=== PATIENT | male | born 1935 | race Caucasian/White ===

== ENCOUNTER 2023-03-29 16:50 | Inpatient (IN) ==
--- NOTE | 2023-03-29 17:10 | Emergency Department Note ---
Impression & Plan Fall, Memory deficit, Elevated CK, Weakness ED Provider Note Provider: Blayne Levin MD DATE OF SERVICE: 03/29/2023 CHIEF COMPLAINT: Found down HISTORY OF PRESENT ILLNESS: Patient is a 87-year-old gentleman presented the ambulance from his home today. Per EMS report the patient had not heard from him in 2 days and thus called out from checked. Was evidently found laying in garbage on the floor. Patient still states he is unsure how he ended up there. States he been on the ground for 2 to 3 days. Reports to me he does not have any pain. States he could not get up. Did have some things around he is able to eat or drink. EMS reports that it was very poorly kept and appeared to have some order components to the home that they were in. Patient's son did call and talk with nursing staff and reported that the patient does have a little bit of memory issues but they question of this seems to be worsening and they are planning to fly here from [place] tomorrow morning. Patient self again denies fever, cough or cold, chest pain, shortness of breath, abdominal pain, nausea or vomiting, headache, pain in the extremities. Patient again cannot tell me if he had LOC or what prompted the fall. Does state he is a bit thirsty. PAST MEDICAL HISTORY: As noted above MEDICATIONS: Supplements but no prescription medications reported. States has been at least half years since he seen [facility] PCP. SOCIAL HISTORY: Lives at home by himself PHYSICAL EXAM: GENERAL: alert and oriented in no acute distress on stretcher but does not remember all the events of how he ended up on the floor. Head: normocephalic and atraumatic EYES: No injection, discharge or icterus. PERRL, EOMI. NECK: Trachea midline. Supple without midline cervical tenderness ENT: Mucous membranes pink but somewhat tacky. LUNGS: Airway patent. No retractions. Breath sounds clear with good air entry bilaterally. HEART: Regular rate and rhythm. No chest wall tenderness ABDOMEN: Soft and non-tender, without guarding or rebound. No bilateral flank tenderness. SKIN: Acyanotic, warm, dry, without rashes EXTREMITIES: Without swelling, tenderness or deformity with good range of motion of the lower legs and hips. NEUROLOGICAL: No focal deficits. No aphasia. No facial droop or slurred speech. Normal strength and tone in the extremities. Sensation to gross touch normal. EK bpm what appears to be sinus tachycardia possibly with a bit of TN prolongation/first-degree heart block without PVC or acute ST segment elevation or depression with a QTc of 649 by the computer but I think it is less than this with some urging of the T wave in the TN. CONTINUOUS CARDIAC MONITORING: was ordered and showed a heart rate of 100s bpm in tachycardia GCS 15. Patient's laboratory studies and imaging reviewed. Differential includes Fracture, dislocation, contusion, intra-abdominal, pneumothorax, intrathoracic, intracranial, neurologic, compartment syndrome, rhabdomyolysis, cardiac etiology/AZ as well as other pathologies. IMPRESSION/MEDICAL DECISION MAKING: Patient evidently down on the ground for several days. Will check a CT exclude rhabdomyolysis but no clinical evidence of significant wounds or compartment syndrome. Denies any significant pain. Will complete a CT of the head with and cervical spine given the fall and question of possibly some memory issues. Patient is keenly alert however. Moving all extremities command. Nuys chest pain or shortness of breath. Denies illness symptoms. Again unclear if he had a syncopal episode or tripped or fell as he does not remember this. With reportedly questions regarding possible hoarding and issues at his home do question how long he may have had some memory decline. CK is only minimally elevated 574. Given some IV fluid hydration 1 L normal saline. Troponin mildly elevated 44 but not having active chest pain. EKG without acute ischemic changes. No other severe electrolyte abnormalities noted. Negative COVID testing. CT reports from radiology of the head and cervical spine without evidence of acute fracture or intracranial bleed/stroke findings. Chest x-ray per radiology without evidence of significant pneumonia pneumothorax or fluid overload. Generalized but nonfocal weakness. Does not seem infected and question of the mild leukocytosis of 12 is more reactive to to the stress of him being on the floor. Discussed with him well with the reassuring findings given his weakness I do feel he safe to go home at this time. Again family have discussed with nursing that they feel he may need additional resources and/or placement. Will discuss with hospitalist team and patient is in agreement to stay. DIAGNOSIS: Fall, memory deficit, weakness DISPOSITION: Hospitalist will evaluate Patient was agreeable with this plan. Past Med/Surg History Social History Smoking Status: Never smoker Preferred Language: Spanish Feels Safe at Home: Yes Allergies Allergies Allergy/AdvReac Type Severity Reaction Status Date / Time No Known Allergies Allergy Unverified 03/29/23 20:25 Home Meds Home Medications Medication Instructions Recorded Confirmed aspirin 81 mg tablet,delayed 81 mg PO DAILY 03/29/23 03/29/23 release cholecalciferol (vitamin D3) 25 25 mcg PO DAILY 03/29/23 03/29/23 mcg (1,000 unit) capsule multivitamin with minerals 1 tab PO DAILY 03/29/23 03/29/23 (Multiple Vitamin-Minerals tablet) Results & Data (ED) Vital Signs Vital Signs - 24 hr 03/29/23 16:55 03/29/23 17:15 03/29/23 17:18 Temperature 37.0 C Temperature Source Oral Pulse Rate 105 H 109 H Pulse Rhythm Regular Pulse Strength Normal Respiratory Rate 18 Respiratory Effort / Characteristics Non-Labored Respiratory Depth Normal Respiratory Pattern Regular Blood Pressure 157/124 H Blood Pressure Mean 135 Pulse Oximetry 98 97 Oxygen Delivery Method Room Air Room Air Sepsis Recent Fever Within 48 Hours No Sepsis New/Unexplained Change in Mental Status No Sepsis Action Taken by Nursing No Action Required 03/29/23 19:00 03/29/23 19:30 03/29/23 20:00 Temperature Temperature Source Pulse Rate 96 H 95 H 100 H Pulse Rhythm Pulse Strength Respiratory Rate 22 15 19 Respiratory Effort / Characteristics Respiratory Depth Respiratory Pattern Blood Pressure 173/109 H 148/109 H 150/103 H Blood Pressure Mean 130 122 118 Pulse Oximetry 97 98 97 Oxygen Delivery Method Room Air Room Air Room Air Sepsis Recent Fever Within 48 Hours Sepsis New/Unexplained Change in Mental Status Sepsis Action Taken by Nursing 03/29/23 20:30 03/29/23 20:54 Temperature Temperature Source Pulse Rate 110 H 96 H Pulse Rhythm Pulse Strength Respiratory Rate 19 Respiratory Effort / Characteristics Respiratory Depth Respiratory Pattern Blood Pressure Blood Pressure Mean Pulse Oximetry 94 Oxygen Delivery Method Room Air Sepsis Recent Fever Within 48 Hours Sepsis New/Unexplained Change in Mental Status Sepsis Action Taken by Nursing Laboratory Data 03/29/23 23:04 03/29/23 18:45 Lab Results 03/29/23 03/29/23 03/29/23 Range/Units 17:10 17:25 18:45 WBC Cancelled 12.89 H RBC Cancelled 5.07 Hgb Cancelled 15.4 Hct Cancelled 43.2 MCV Cancelled 85.2 MCH Cancelled 30.4 MCHC Cancelled 35.6 RDW Std Deviation Cancelled 41.7 RDW Coeff of Dorothy Cancelled 13.7 Plt Count Cancelled 220 MPV Cancelled 8.4 L Immature Gran % (Auto) Cancelled 0.5 Neut % (Auto) Cancelled 81.2 Lymph % (Auto) Cancelled 9.2 [place] % (Auto) Cancelled 8.5 Eos % (Auto) Cancelled 0.2 Baso % (Auto) Cancelled 0.4 Neut # (Auto) Cancelled 10.47 H Lymph # (Auto) Cancelled 1.18 L [place] # (Auto) Cancelled 1.10 H Eos # (Auto) Cancelled 0.02 Baso # (Auto) Cancelled 0.05 Immature Gran # (Auto) Cancelled 0.07 Absolute Nucleated RBC Cancelled Nucleated RBC % (auto) Cancelled Neutrophils % (Manual) Cancelled Band Neutrophils % Cancelled Lymphocytes % (Manual) Cancelled Prolymphocyte % Cancelled Reactive Lymphs % (Man) Cancelled Monocytes % (Manual) Cancelled Eosinophils % (Manual) Cancelled Basophils % (Manual) Cancelled Metamyelocytes % (Man) Cancelled Myelocytes % (Man) Cancelled Promyelocytes % (Man) Cancelled Blast Cells % (Manual) Cancelled Plasma Cell % (Manual) Cancelled Other Cells % Cancelled Nucleated RBC % Cancelled Neutrophils # (Manual) Cancelled Band Neutrophils # Cancelled Total Absolute Neuts Cancelled Lymphocytes # (Manual) Cancelled Prolymphocyte # Cancelled Reactive Lymphs # Cancelled Total Abs Lymphocytes Cancelled Monocytes # (Manual) Cancelled Eosinophils # (Manual) Cancelled Basophils # (Manual) Cancelled Metamyelocytes # (Man) Cancelled Myelocytes # (Manual) Cancelled Promyelocytes # (Man) Cancelled Blast Cells # (Man) Cancelled Plasma Cell # (Manual) Cancelled Other Cells # Cancelled Nucleated RBCs # (Man) Cancelled Hypersegmented Neuts Cancelled Hyposegmented Neuts Cancelled Hypogranular Neuts Cancelled Large Granular Lymphs Cancelled # Lrg Granular Lymphs Cancelled Hairy Cells Cancelled Smudge Cells Cancelled Toxic Granulation Cancelled Toxic Vacuolation Cancelled Dohle Bodies Cancelled Bakari Rods Cancelled Platelet Estimate Cancelled Hypogranular Platelets Cancelled Giant Platelets Cancelled Platelet Satelliting Cancelled RBC Morphology Cancelled Polychromasia Cancelled Hypochromasia Cancelled Poikilocytosis Cancelled Basophilic Stippling Cancelled Anisocytosis Cancelled Microcytosis Cancelled Macrocytosis Cancelled Spherocytes Cancelled Pappenheimer Bodies Cancelled Sickle Cells Cancelled Target Cells Cancelled Tear Drop Cells Cancelled Ovalocytes Cancelled Stomatocytes Cancelled Zamora-Dunnigan Bodies Cancelled Echinocytes Cancelled Acanthocytes (Spur) Cancelled Rouleaux Cancelled RBC Agglutinates Cancelled Schistocytes Cancelled Sezary Cell Cancelled PT 11.8 (9.0-12.0) Seconds INR 1.1 (0.9-1.1) Sodium 139 (136-145) mmol/L Potassium TNP 4.1 Chloride 105 (98-107) mmol/L Carbon Dioxide 23 (21-32) mmol/L Anion Gap 11 (3-11) BUN 19 (6-23) mg/dl Creatinine 1.09 (0.6-1.4) mg/dl Est Cr Clr Drug Dosing 46.4 ml/min Est GFR ( Amer) 70.9 ml/min Est GFR (Non-Af Amer) 61.1 ml/min BUN/Creatinine Ratio 17.4 (10-20) Glucose 95 (70-99(Fasting)) mg/dl Calcium 9.3 (8.6-10.3) mg/dl Magnesium 2.1 (1.7-2.4) mg/dl Total Bilirubin 2.2 H (0.2-1.0) mg/dl AST TNP 45 H ALT 22 (7-52) U/L Alkaline Phosphatase 86 (34-104) U/L Total Creatine Kinase 574 H (30-223) U/L Troponin I High Sens 44.3 H 47.6 H (0-20) pg/ml Total Protein 7.4 (6.0-8.3) gm/dl Albumin 4.1 (3.4-5.0) gm/dl Globulin 3.3 (2.5-4.0) gm/dl Albumin/Globulin Ratio 1.2 (0.9-2) TSH 2.507 (0.300-4.500) uIu/ml SARS-CoV-2, RNA, NAAT NEGATIVE (NEGATIVE) Blood Parasites ID Cancelled Administered Medications Heparin Sodium (Porcine) (Heparin Sod 5,000 Unit/0.5 Ml Vial) 5,000 units SQ Q12 STANLEY Stop: 04/28/23 22:41 Last Admin: 03/30/23 00:03 Dose: 5,000 units Documented By: TORRES Sodium Chloride (Nss) 1,000 mls @ 80 mls/hr IV .[id number] STANLEY Stop: 03/30/23 23:41 Last Admin: 03/30/23 00:03 Dose: 80 mls/hr Documented By: TORRES Discontinued Medications Sodium Chloride (Nss) 1,000 mls @ 999 mls/hr IV .[id number] STANLEY Stop: 03/29/23 18:15 Last Infusion: 03/29/23 19:11 Dose: Infused Documented By: Admin: 03/29/23 17:28 Dose: 999 mls/hr Documented By: PILY Imaging Data Radiologist's Impression: Cervical Spine CT 03/29/23 17:15 CT cervical spine wo con CT DOSE: 1130.02 mGy.cm CLINICAL HISTORY: 87 years-old Male with fall. Acute neck injury status post fall COMPARISON: Head CT obtained TECHNIQUE: Multiple axial CT images of the cervical spine were obtained without contrast. A dose lowering technique was utilized adhering to the principles of ALARA. FINDINGS: Multilevel changes. No acute fracture, subluxation or suspicious bone lesion. The cervical soft tissues appear unremarkable. The visualized lung apices appear clear. IMPRESSION: No acute fracture or subluxation. ACT 112: Negative or not required by law. The above report was generated using voice recognition software. It may contain grammatical, syntax or spelling errors. Electronically signed by: Miguel Mansfield M.D. 03/29/2023 6:12 PM Chest X-Ray 03/29/23 17:15 XR chest 1V portable HISTORY: 87 years-old Male weakness, fall acute weakness with chest trauma status post fall COMPARISON: None TECHNIQUE: AP view chest FINDINGS: Cardiac silhouette is enlarged. 9 mm nodular density projecting over the right lung base, possibly nipple shadow. No pneumothorax, pleural effusion or pulmonary edema. Mild subsegmental left basilar atelectasis. Bones appear grossly intact. IMPRESSION: Cardiomegaly without acute process. ACT 112: Negative or not required by law. The above report was generated using voice recognition software. It may contain grammatical, syntax or spelling errors. Electronically signed by: Miguel Mansfield M.D. 03/29/2023 5:[address] 03/29/23 17:15 CT head/brain wo con CLINICAL HISTORY: 87 years-old Male with fall. Acute head and neck injury status post trauma TECHNIQUE: Multiple axial CT images of the head were obtained without contrast. A dose lowering technique was utilized adhering to the principles of ALARA. COMPARISON: CT cervical spine of same day FINDINGS: No acute intracranial hemorrhage, midline shift, intracranial mass, hydrocephalus, territorial ischemia or abnormal extra-axial collection. Involutional changes with white matter hypodensities suggestive of chronic microvascular ischemic disease. The calvarium is intact. Mastoid air cells are clear. [id number] mucosal thickening of the paranasal sinuses appears chronic. IMPRESSION: No acute intracranial abnormality or calvarial fracture. ACT 112: Negative or not required by law. The above report was generated using voice recognition software. It may contain grammatical, syntax or spelling errors. Electronically signed by: Miguel Mansfield M.D. 03/29/2023 6:07 PM Discharge Plan Visit Data Chief Complaint: Fall ED Provider: Blayne Levin Discharge Problem: Fall, Memory deficit, Elevated CK, Weakness Patient Disposition: Being Evaluated by Hospitalist Condition: Fair Discharge Instructions Interventions: ED Discharge Assessment Last Done: 03/29/23 22:41
[2023-03-29] MEDS ORDERED: SODIUM CHLORIDE 0.9% 1,000 ML IV SCH (17:15)
[2023-03-29 17:40] LABS: Alanine Aminotransferase 22 U/L (7-52); Albumin Globulin Ratio 1.2 (0.9-2); Albumin Level 4.1 gm/dl (3.4-5.0); Alkaline Phosphatase 86 U/L (34-104); Anion Gap 11 (3-11); BUN Creatinine Ratio 17.4 (10-20); Bilirubin,Total 2.2 mg/dl (0.2-1.0); Blood Urea Nitrogen 19 mg/dl (6-23); Calcium 9.3 mg/dl (8.6-10.3); Carbon Dioxide 23 mmol/L (21-32); Chloride 105 mmol/L (98-107); Creatine Kinase 574 U/L (30-223); Creatinine Clr Calc Pharmacy 46.4 ml/min; Est GFR (African American) 70.9 ml/min; Est GFR (Non-African American) 61.1 ml/min; Globulin 3.3 gm/dl (2.5-4.0); Glucose 95 mg/dl (70-99(Fasting)); Magnesium 2.1 mg/dl (1.7-2.4); Sodium 139 mmol/L (136-145); Total Protein 7.4 gm/dl (6.0-8.3)
[2023-03-29 17:46] LABS: Troponin I High Sensitivity 44.3 pg/ml (0-20)
[2023-03-29 17:54] LABS: Thyroid Stimulating Hormone 2.507 uIu/ml (0.300-4.500)
--- NOTE | 2023-03-29 17:58 | XRay Report ---
XR chest 1V portable HISTORY: 87 years-old Male weakness, fall acute weakness with chest trauma status post fall COMPARISON: None TECHNIQUE: AP view chest FINDINGS: Cardiac silhouette is enlarged. 9 mm nodular density projecting over the right lung base, possibly ni pple shadow. No pneumothorax, pleural effusion or pulmonary edema. Mild subsegmental left basilar ate lectasis. Bones appear grossly intact. IMPRESSION: Cardiomegaly without acute process. ACT 112: Negative or not required by law. The above report was generated using voice recognition software. It may contain grammatical, syntax o r spelling errors. Electronically signed by: Miguel Mansfield M.D. 03/29/2023 5:55 PM
--- NOTE | 2023-03-29 18:09 | CT Scan Report ---
CT head/brain wo con CLINICAL HISTORY: 87 years-old Male with fall. Acute head and neck injury status post trauma TECHNIQUE: Multiple axial CT images of the head were obtained without contrast. A dose lowering tech nique was utilized adhering to the principles of ALARA. COMPARISON: CT cervical spine of same day FINDINGS: No acute intracranial hemorrhage, midline shift, intracranial mass, hydrocephalus, territorial ischem ia or abnormal extra-axial collection. Involutional changes with white matter hypodensities suggestiv e of chronic microvascular ischemic disease. The calvarium is intact. Mastoid air cells are clear. [id number] mucosal thickening of the par anasal sinuses appears chronic. IMPRESSION: No acute intracranial abnormality or calvarial fracture. ACT 112: Negative or not required by law. The above report was generated using voice recognition software. It may contain grammatical, syntax o r spelling errors. Electronically signed by: Miguel Mansfield M.D. 03/29/2023 6:07 PM
--- NOTE | 2023-03-29 18:15 | CT Scan Report ---
CT cervical spine wo con CT DOSE: 1130.02 mGy.cm CLINICAL HISTORY: 87 years-old Male with fall. Acute neck injury status post fall COMPARISON: Head CT obtained TECHNIQUE: Multiple axial CT images of the cervical spine were obtained without contrast. A dose low ering technique was utilized adhering to the principles of ALARA. FINDINGS: Multilevel changes. No acute fracture, subluxation or suspicious bone lesion. The cervical soft tissues appear unremarkable. The visualized lung apices appear clear. IMPRESSION: No acute fracture or subluxation. ACT 112: Negative or not required by law. The above report was generated using voice recognition software. It may contain grammatical, syntax o r spelling errors. Electronically signed by: Miguel Mansfield M.D. 03/29/2023 6:12 PM
[2023-03-29 19:05] LABS: Basophils # (auto) 0.05 K/uL (0.00-0.20); Basophils % (auto) 0.4 %; Eosinophils # (auto) 0.02 K/uL (0.00-0.50); Eosinophils % (auto) 0.2 %; Hematocrit (blood only) 43.2 % (42.0-52.0); Hemoglobin 15.4 g/dl (14.0-18.0); Immature Granulocytes # (auto) 0.07 K/uL (0.01-0.20); Immature Granulocytes % (auto) 0.5 %; Lymphocytes # (auto) 1.18 K/uL (1.20-3.40); Lymphocytes % (auto) 9.2 %; Mean Corpuscular Hemoglobin 30.4 pg (25.0-34.0); Mean Corpuscular Hgb Conc 35.6 g/dL (32.0-36.0); Mean Corpuscular Volume 85.2 fL (80.0-100.0); Mean Platelet Volume 8.4 fL (9.4-12.4); Monocytes % (auto) 8.5 %; Neutrophils # (auto) 10.47 K/uL (1.40-6.50); Neutrophils % (auto) 81.2 %; Platelet Count 220 K/uL (130-400); RDW Coefficient of Variation 13.7 % (11.5-14.5); RDW Standard Deviation 41.7 fL (36.4-46.3); Red Blood Count 5.07 M/uL (4.70-6.10); White Blood Count 12.89 K/ul (4.8-10.8)
[2023-03-29 19:21] LABS: Potassium 4.1 mmol/L (3.5-5.1)
[2023-03-29 19:32] LABS: INR 1.1 (0.9-1.1); Prothrombin Time 11.8 Seconds (9.0-12.0)
--- NOTE | 2023-03-29 21:05 | History & Physical Report ---
Date of Service March 29, 2023 Assessment & Plan (1) Fall: Plan: 87-year-old male with past med history significant for hyperlipidemia, chronic kidney stage III presents with fall. Patient apparently fell couple of days ago and laid on the floor for the last 2 days. Patient states he passed out did not know why. And after he woke up he found himself on the floor and could not get up. States that he fell up on his abdomen and he has some abdominal discomfort. Denies any head pain. No back pain. No chest pain. No cough. No fevers. No runny nose or sore throat. Vision is okay. Says normal bowel and bladder movements. Son lives in [place] and is coming tomorrow. Fall Possible syncope CT head and CT cervical spine are okay and chest x-ray okay Currently hemoglobin stable Will place him on gentle fluids Orthostatics Monitoring telemetry floor Echocardiogram Consult cardio in a.m. PT OT when stable Significantly Prolonged QTC will keep k>4 and mag>2 close monitor in tele cardio consulted avoid qt prolonging drugs. Mild elevation troponin denies chest pain or sob We will follow repeat EKG and serial enzymes and echo Elevated cpk getting fluids will follow repeat levels. CKD stage III presented with creatinine 1.09 We will follow labs DVT prophylaxis Heparin subcu Disposition Med/tele Full code History of Present Illness Chief Complaint: S/p fall Primary Care Provider: Michi Navarrete MD 87-year-old male with past med history significant for hyperlipidemia, chronic kidney stage III presents with fall. Patient apparently fell couple of days ago and laid on the floor for the last 2 days. Patient states he passed out did not know why. And after he woke up he found himself on the floor and could not get up. States that he fell up on his abdomen and he has some abdominal discomfort. Denies any head pain. No back pain. No chest pain. No cough. No fevers. No runny nose or sore throat. Vision is okay. Says normal bowel and bladder movements. Son lives in [place] and is coming tomorrow. Past medical history. As mentioned above Past surgical history. Removal of ruptured appendix. Inguinal hernia repair. Social history. Lives alone. No smoking. Alcohol 3 drinks per month. No drug use. Family history. No family history on file Allergies Allergy/AdvReac Type Severity Reaction Status Date / Time No Known Allergies Allergy Unverified 03/29/23 20:25 Home Medications Medication Instructions Recorded Confirmed Type aspirin 81 mg tablet,delayed 81 mg PO DAILY 03/29/23 03/29/23 History release cholecalciferol (vitamin D3) 25 25 mcg PO DAILY 03/29/23 03/29/23 History mcg (1,000 unit) capsule multivitamin with minerals 1 tab PO DAILY 03/29/23 03/29/23 History (Multiple Vitamin-Minerals tablet) Past Med/Surg History Social History Smoking Status: Never smoker Preferred Language: Botswanan Feels Safe at Home: Yes Review of Systems Review of Systems: All systems reviewed & are unremarkable except as noted in HPI & below Physical Exam Physical Exam: General- Not in distress Head- atraumatic Eyes- EOMI ENT- oropharynx clear Neck- supple, no JVD. Lungs- clear to auscultation no wheezing or crackles Heart- regular rhythm; no murmur, no gallop. Abdomen- normal bowel sounds, soft, nontender, no distension Extremities- no pretibial edema, no erythema seen Neuro- alert, oriented x 3; EOMI; no facial palsy; no dysarthria; Obeys simple commands moves extremities Skin- warm & dry Results & Data Results & Data Vital Signs (Past 12 Hours) Vital Signs Temp Pulse Resp BP Pulse Ox O2 Del Method 03/29/23 20:30 110 H 19 94 Room Air 03/29/23 20:00 100 H 19 150/103 H 97 Room Air 03/29/23 19:30 95 H 15 148/109 H 98 Room Air 03/29/23 19:00 96 H 22 173/109 H 97 Room Air 03/29/23 17:18 109 H 03/29/23 17:15 97 Room Air 03/29/23 16:55 37.0 C 105 H 18 157/124 H 98 Room Air Diagnostic Findings Laboratory Results WBC 12.89 K/ul (4.8-10.8) H 03/29/23 18:45 RBC 5.07 M/uL (4.70-6.10) 03/29/23 18:45 Hgb 15.4 g/dl (14.0-18.0) 03/29/23 18:45 Hct 43.2 % (42.0-52.0) 03/29/23 18:45 MCV 85.2 fL (80.0-100.0) 03/29/23 18:45 MCH 30.4 pg (25.0-34.0) 03/29/23 18:45 MCHC 35.6 g/dL (32.0-36.0) 03/29/23 18:45 RDW Std Deviation 41.7 fL (36.4-46.3) 03/29/23 18:45 RDW Coeff of Dorothy 13.7 % (11.5-14.5) 03/29/23 18:45 Plt Count 220 K/uL (130-400) 03/29/23 18:45 MPV 8.4 fL (9.4-12.4) L 03/29/23 18:45 Immature Gran % (Auto) 0.5 % 03/29/23 18:45 Neut % (Auto) 81.2 % 03/29/23 18:45 Lymph % (Auto) 9.2 % 03/29/23 18:45 [place] % (Auto) 8.5 % 03/29/23 18:45 Eos % (Auto) 0.2 % 03/29/23 18:45 Baso % (Auto) 0.4 % 03/29/23 18:45 Neut # (Auto) 10.47 K/uL (1.40-6.50) H 03/29/23 18:45 Lymph # (Auto) 1.18 K/uL (1.20-3.40) L 03/29/23 18:45 [place] # (Auto) 1.10 K/uL (0.11-0.59) H 03/29/23 18:45 Eos # (Auto) 0.02 K/uL (0.00-0.50) 03/29/23 18:45 Baso # (Auto) 0.05 K/uL (0.00-0.20) 03/29/23 18:45 Immature Gran # (Auto) 0.07 K/uL (0.01-0.20) 03/29/23 18:45 Absolute Nucleated RBC Cancelled 03/29/23 17:10 Nucleated RBC % (auto) Cancelled 03/29/23 17:10 Neutrophils % (Manual) Cancelled 03/29/23 17:10 Band Neutrophils % Cancelled 03/29/23 17:10 Lymphocytes % (Manual) Cancelled 03/29/23 17:10 Prolymphocyte % Cancelled 03/29/23 17:10 Reactive Lymphs % (Man) Cancelled 03/29/23 17:10 Monocytes % (Manual) Cancelled 03/29/23 17:10 Eosinophils % (Manual) Cancelled 03/29/23 17:10 Basophils % (Manual) Cancelled 03/29/23 17:10 Metamyelocytes % (Man) Cancelled 03/29/23 17:10 Myelocytes % (Man) Cancelled 03/29/23 17:10 Promyelocytes % (Man) Cancelled 03/29/23 17:10 Blast Cells % (Manual) Cancelled 03/29/23 17:10 Plasma Cell % (Manual) Cancelled 03/29/23 17:10 Other Cells % Cancelled 03/29/23 17:10 Nucleated RBC % Cancelled 03/29/23 17:10 Neutrophils # (Manual) Cancelled 03/29/23 17:10 Band Neutrophils # Cancelled 03/29/23 17:10 Total Absolute Neuts Cancelled 03/29/23 17:10 Lymphocytes # (Manual) Cancelled 03/29/23 17:10 Prolymphocyte # Cancelled 03/29/23 17:10 Reactive Lymphs # Cancelled 03/29/23 17:10 Total Abs Lymphocytes Cancelled 03/29/23 17:10 Monocytes # (Manual) Cancelled 03/29/23 17:10 Eosinophils # (Manual) Cancelled 03/29/23 17:10 Basophils # (Manual) Cancelled 03/29/23 17:10 Metamyelocytes # (Man) Cancelled 03/29/23 17:10 Myelocytes # (Manual) Cancelled 03/29/23 17:10 Promyelocytes # (Man) Cancelled 03/29/23 17:10 Blast Cells # (Man) Cancelled 03/29/23 17:10 Plasma Cell # (Manual) Cancelled 03/29/23 17:10 Other Cells # Cancelled 03/29/23 17:10 Nucleated RBCs # (Man) Cancelled 03/29/23 17:10 Hypersegmented Neuts Cancelled 03/29/23 17:10 Hyposegmented Neuts Cancelled 03/29/23 17:10 Hypogranular Neuts Cancelled 03/29/23 17:10 Large Granular Lymphs Cancelled 03/29/23 17:10 # Lrg Granular Lymphs Cancelled 03/29/23 17:10 Hairy Cells Cancelled 03/29/23 17:10 Smudge Cells Cancelled 03/29/23 17:10 Toxic Granulation Cancelled 03/29/23 17:10 Toxic Vacuolation Cancelled 03/29/23 17:10 Dohle Bodies Cancelled 03/29/23 17:10 Bakari Rods Cancelled 03/29/23 17:10 Platelet Estimate Cancelled 03/29/23 17:10 Hypogranular Platelets Cancelled 03/29/23 17:10 Giant Platelets Cancelled 03/29/23 17:10 Platelet Satelliting Cancelled 03/29/23 17:10 RBC Morphology Cancelled 03/29/23 17:10 Polychromasia Cancelled 03/29/23 17:10 Hypochromasia Cancelled 03/29/23 17:10 Poikilocytosis Cancelled 03/29/23 17:10 Basophilic Stippling Cancelled 03/29/23 17:10 Anisocytosis Cancelled 03/29/23 17:10 Microcytosis Cancelled 03/29/23 17:10 Macrocytosis Cancelled 03/29/23 17:10 Spherocytes Cancelled 03/29/23 17:10 Pappenheimer Bodies Cancelled 03/29/23 17:10 Sickle Cells Cancelled 03/29/23 17:10 Target Cells Cancelled 03/29/23 17:10 Tear Drop Cells Cancelled 03/29/23 17:10 Ovalocytes Cancelled 03/29/23 17:10 Stomatocytes Cancelled 03/29/23 17:10 Zamora-Concho Bodies Cancelled 03/29/23 17:10 Echinocytes Cancelled 03/29/23 17:10 Acanthocytes (Spur) Cancelled 03/29/23 17:10 Rouleaux Cancelled 03/29/23 17:10 RBC Agglutinates Cancelled 03/29/23 17:10 Schistocytes Cancelled 03/29/23 17:10 Sezary Cell Cancelled 03/29/23 17:10 PT 11.8 Seconds (9.0-12.0) 03/29/23 18:45 INR 1.1 (0.9-1.1) 03/29/23 18:45 Sodium 139 mmol/L (136-145) 03/29/23 17:10 Potassium 4.1 mmol/L (3.5-5.1) 03/29/23 18:45 Chloride 105 mmol/L (98-107) 03/29/23 17:10 Carbon Dioxide 23 mmol/L (21-32) 03/29/23 17:10 Anion Gap 11 (3-11) 03/29/23 17:10 BUN 19 mg/dl (6-23) 03/29/23 17:10 Creatinine 1.09 mg/dl (0.6-1.4) 03/29/23 17:10 Est Cr Clr Drug Dosing 46.4 ml/min 03/29/23 17:10 Est GFR ( Amer) 70.9 ml/min 03/29/23 17:10 Est GFR (Non-Af Amer) 61.1 ml/min 03/29/23 17:10 BUN/Creatinine Ratio 17.4 (10-20) 03/29/23 17:10 Glucose 95 mg/dl (70-99(Fasting)) 03/29/23 17:10 Calcium 9.3 mg/dl (8.6-10.3) 03/29/23 17:10 Magnesium 2.1 mg/dl (1.7-2.4) 03/29/23 17:10 Total Bilirubin 2.2 mg/dl (0.2-1.0) H 03/29/23 17:10 AST 45 U/L (13-39) H 03/29/23 18:45 ALT 22 U/L (7-52) 03/29/23 17:10 Alkaline Phosphatase 86 U/L (34-104) 03/29/23 17:10 Total Creatine Kinase 574 U/L (30-223) H 03/29/23 17:10 Troponin I High Sens 47.6 pg/ml (0-20) H 03/29/23 18:45 Total Protein 7.4 gm/dl (6.0-8.3) 03/29/23 17:10 Albumin 4.1 gm/dl (3.4-5.0) 03/29/23 17:10 Globulin 3.3 gm/dl (2.5-4.0) 03/29/23 17:10 Albumin/Globulin Ratio 1.2 (0.9-2) 03/29/23 17:10 TSH 2.507 uIu/ml (0.300-4.500) 03/29/23 17:10 SARS-CoV-2, RNA, NAAT NEGATIVE (NEGATIVE) 03/29/23 17:25 Blood Parasites ID Cancelled 03/29/23 17:[address] 03/29/23 17:15 CT cervical spine wo con CT DOSE: 1130.02 mGy.cm CLINICAL HISTORY: 87 years-old Male with fall. Acute neck injury status post fall COMPARISON: Head CT obtained TECHNIQUE: Multiple axial CT images of the cervical spine were obtained without contrast. A dose lowering technique was utilized adhering to the principles of ALARA. FINDINGS: Multilevel changes. No acute fracture, subluxation or suspicious bone lesion. The cervical soft tissues appear unremarkable. The visualized lung apices appear clear. IMPRESSION: No acute fracture or subluxation. ACT 112: Negative or not required by law. The above report was generated using voice recognition software. It may contain grammatical, syntax or spelling errors. Electronically signed by: Miguel Mansfield M.D. 03/29/2023 6:12 PM Chest X-Ray 03/29/23 17:15 XR chest 1V portable HISTORY: 87 years-old Male weakness, fall acute weakness with chest trauma status post fall COMPARISON: None TECHNIQUE: AP view chest FINDINGS: Cardiac silhouette is enlarged. 9 mm nodular density projecting over the right lung base, possibly nipple shadow. No pneumothorax, pleural effusion or pulmonary edema. Mild subsegmental left basilar atelectasis. Bones appear grossly intact. IMPRESSION: Cardiomegaly without acute process. ACT 112: Negative or not required by law. The above report was generated using voice recognition software. It may contain grammatical, syntax or spelling errors. Electronically signed by: Miguel Mansfield M.D. 03/29/2023 5:[address] 03/29/23 17:15 CT head/brain wo con CLINICAL HISTORY: 87 years-old Male with fall. Acute head and neck injury status post trauma TECHNIQUE: Multiple axial CT images of the head were obtained without contrast. A dose lowering technique was utilized adhering to the principles of ALARA. COMPARISON: CT cervical spine of same day FINDINGS: No acute intracranial hemorrhage, midline shift, intracranial mass, hydrocephalus, territorial ischemia or abnormal extra-axial collection. Involutional changes with white matter hypodensities suggestive of chronic microvascular ischemic disease. The calvarium is intact. Mastoid air cells are clear. [id number] mucosal thickening of the paranasal sinuses appears chronic. IMPRESSION: No acute intracranial abnormality or calvarial fracture. ACT 112: Negative or not required by law. The above report was generated using voice recognition software. It may contain grammatical, syntax or spelling errors. Electronically signed by: Miguel Mansfield M.D. 03/29/2023 6:07 PM ECG Additional Comments: ECG. Accelerated junctional rhythm with occasional PVCs at a rate of 102. Code Status & VTE Plan VTE Prophylaxis Plan VTE Prophylaxis will be ordered: Yes
--- OUTSIDE RECORDS SUMMARY | 2023-03-29 22:37 | External Medical Summary | Summary of Care ---
Author Name Unknown Organization [facility] Address [address] [place] [address] Phone [phone] Care Team Providers Care Technical Mgr Name Role Phone Michi Navarrete MD Primary Care Provider Encounter Details Date Type Department Care Team (Late st Contact Info) Description 02/18/2023 Population Health External Data Unspecified Department Allergies No known active allergiesdocumented as of this encounter (statuses as of 02/18/2023) Medications Medication Sig Dispensed Refills Start Date End Date Status Multiple Vitamins-Minerals (MULTIVITAL) Tablet Take 1 Tab by mouth daily. 30 Tab 11 08/30/2014 Active Cholecalciferol (VITAMIN D) 1000 UNIT CapsuleIndications:My algia and myositis Take 1 Cap by mouth daily. 30 Cap 11 08/30/2014 Active aspirin 81 MG chewable tablet Take 1 Tab by mouth daily. with food. 100 Tab 5 04/10/2015 Active Diclofenac Sodium (VOLTAREN) 1 % gelIndications:Flank pain Place 2 g topically on the skin 4 times a day. To affected area as directed. 100 g 5 07/27/2015 Active documented as of this encounter (statuses as of 02/18/2023) Active Problems Problem Noted Date Diagnosed Date Kidney disease, chronic, stage III (GFR 30-59 ml /min) 12/14/2015 Hyperlipidemia with target LDL less than 100 Need for prophylactic measure 04/10/2015 documented as of this encounter (statuses as of 02/18/2023) Immunizations Name Administration Dates Next Due COVID-19 mRNA, LNP-s, No Pre serve, 2-Dose Series (I Do Now I Don't) 12/05/2020,11/14/2020 Pneumococcal Conjugate Vacc, 13 Valent (Prevnar) 12/14/2015 Pneumococcal Polysaccharide PPV23 (Pneumovax) SEASONAL INFLUENZA, PF, 6 M & Above, IM , (FLULAVAL or FLUZONE) 03/04/2017 Seasonal Influenza, Split, IIV3, With Preserve, Inj 01/01/2016 Seasonal Influenza, Trivalen t, High Dose, No Preserve, IM 03/28/2015 TDAP (age 11 and older)(Adacel) 11/03/2011 documented as of this encounter Social History Tobacco Use Types Packs/Day Years Used Date Smoking Tobacco: Never Smokeless Tobacco: Never Alcohol Use Standard Drinks/Week Comments Yes 0 (1 standard drink = 0.6 oz pur e alcohol) rare 3 drinks per month PHQ-2 Answer Date Recorded PHQ-2 Score -1 02/03/2018 Sex and Gender Information Value Date Recorded Sex Assigned at Not on file Gender Identity Not on file Sexual Orientation Not on file documented as of this encounter Plan of Treatment Health Maintenance Due Date Last Done Comments Albumin/Creatinine Ratio 1953 CKD HGB USE SMARTSET 79569 1953 CKD PHOS USE SMARTSET 46787 1953 Zoster Vaccines (1 of 2) 1986 Depression Screening 06/13/2018 06/13/2017 DTaP,Tdap,and Td Vaccines (2 - Td or Tdap) 11/02/2021 11/03/2011 COVID-19 Vaccine (3 - 2022-2 4 season) 2022 12/05/2020, 11/14/2020 Influenza Vaccine (FLU shot) (#1) 2022 03/04/2017, 01/01/2016, 03/28/2015 Pneumococcal Vaccine: 65+ Years Completed 12/14/2015, 08/30/2014 GARDASIL-HPV IMMUNIZATION SERIES Aged Out No longer eligible b ased on patient's age to complete this topic Hepatitis B Aged Out No longer eligi ble based on patient's age to complete this topic MENINGOCOCCAL (MENACTRA/MENVEO) Aged Out No longer eligible b ased on patient's age to complete this topic documented as of this encounter Medical Devices Not on filedocumented as of this encounter Care Teams Technical Mgr Relationship Specialty Start Date End Date Michi Navarrete MD PCP - General Family Medicine 08/17/14 documented as of this encounter
[2023-03-29] MEDS ORDERED: NITROGLYCERIN SL 0.4 MG/TAB TAB SL PRN (22:42)
[2023-03-29] MEDS ORDERED: ACETAMINOPHEN 325 MG TAB PO PRN (22:42)
[2023-03-29] MEDS ORDERED: POLYETHYLENE (MIRALAX) 17 GM PACK PO PRN (22:42)
[2023-03-29 23:28] LABS: Hematocrit (blood only) 42.9 % (42.0-52.0); Hemoglobin 15.1 g/dl (14.0-18.0); Mean Corpuscular Hemoglobin 29.9 pg (25.0-34.0); Mean Corpuscular Hgb Conc 35.2 g/dL (32.0-36.0); Mean Platelet Volume 8.4 fL (9.4-12.4); Platelet Count 217 K/uL (130-400); RDW Coefficient of Variation 13.7 % (11.5-14.5); RDW Standard Deviation 42.5 fL (36.4-46.3); Red Blood Count 5.05 M/uL (4.70-6.10); White Blood Count 11.49 K/ul (4.8-10.8)
[2023-03-30] MEDS: HEPARIN SOD 5,000 UNIT/0.5 ML VIAL SQ SCH ×3 (00:03→20:26)
[2023-03-30] MEDS: SODIUM CHLORIDE 0.9% 1,000 ML IV SCH ×2 (00:03→13:03)
[2023-03-30 04:55] LABS: Basophils # (auto) 0.05 K/uL (0.00-0.20); Basophils % (auto) 0.5 %; Eosinophils # (auto) 0.07 K/uL (0.00-0.50); Eosinophils % (auto) 0.7 %; Hematocrit (blood only) 41.8 % (42.0-52.0); Hemoglobin 14.8 g/dl (14.0-18.0); Immature Granulocytes # (auto) 0.05 K/uL (0.01-0.20); Immature Granulocytes % (auto) 0.5 %; Lymphocytes # (auto) 1.76 K/uL (1.20-3.40); Lymphocytes % (auto) 17.3 %; Mean Corpuscular Hemoglobin 30.6 pg (25.0-34.0); Mean Corpuscular Hgb Conc 35.4 g/dL (32.0-36.0); Mean Corpuscular Volume 86.4 fL (80.0-100.0); Mean Platelet Volume 8.5 fL (9.4-12.4); Monocytes # (auto) 0.96 K/uL (0.11-0.59); Monocytes % (auto) 9.4 %; Neutrophils # (auto) 7.27 K/uL (1.40-6.50); Neutrophils % (auto) 71.6 %; Platelet Count 217 K/uL (130-400); RDW Coefficient of Variation 13.7 % (11.5-14.5); RDW Standard Deviation 42.3 fL (36.4-46.3); Red Blood Count 4.84 M/uL (4.70-6.10); White Blood Count 10.16 K/ul (4.8-10.8)
[2023-03-30 05:09] LABS: BUN Creatinine Ratio 18.1 (10-20); Calcium 8.6 mg/dl (8.6-10.3); Creatinine Clr Calc Pharmacy 48.2 ml/min; Est GFR (African American) 74.1 ml/min; Magnesium 2.1 mg/dl (1.7-2.4); Potassium 3.7 mmol/L (3.5-5.1)
[2023-03-30 05:23] LABS: Troponin I High Sensitivity 38.3 pg/ml (0-20)
--- NOTE | 2023-03-30 07:34 | Hospitalist Progress Note ---
Date of Service March 30, 2023 Assessment & Plan (1) Syncope and collapse: Plan: Fall Possible syncope and generalized weakness Uncertain cause of syncope CT head and CT cervical spine are okay and chest x-ray okay Currently hemoglobin stable Orthostatics qshift Monitoring telemetry floor Echocardiogram pending Cardiology consulted PT OT when stable (2) Prolonged QT interval: Plan: Significant QTc around 700ms. Mg and K replaced to achieve 2 and 4, respectively. He is not on QT-prolonging medications. Echo and cardiac consult pending. Doubt ACS without any reports of chest pain and no ST changes consistent with acute ischemia. There is no alkalosis, TSH is WNL. Will await cardiology recommendations. (3) Weakness: Plan: Patient is elderly with chronic comorbidities. It is uncertain if there are otherAcute reasons for his weakness and fall which are being explored. Still awaiting urinalysis collection PT/OT ordered. (4) Elevated CK: Plan: 2/2 lying on the floor for a prolonged period of time. This is trending down. Continue gentle hydration. (5) Elevated troponin: Plan: No chest pain or EKG changes consistent with ischemia, doubt ACS. Likely related to the stress of being on the floor with elevated CK. Echo and cards consult pending. (6) CKD (chronic kidney disease), stage III: Plan: chronic, at baseline. (7) Memory deficit: Plan: Per initial admission records. Patient lives alone. He appears to be rather functional and is answering questions appropriately. He is oriented. Continue supportive care. DVT prophylaxis- Heparin subcu Disposition--Med/tele Full code I spent a total [id number] coordinating, documenting, and providing care for this patient excluding time spent in the performance of separately billed services Debi Orozco DO [facility] Hospitalist Admission and Anticipated Discharge Date Admission Date: March 29, 2023 Subjective 87-year-old man who lives alone and ambulates independently reports walking in his room 2 days ago with a sudden loss of consciousness and remained weak and unable to get up for approximately 48 hours. He reports no presyncopal symptoms of lightheadedness, no tongue biting, no loss of control of bladder or bowel, and when he woke up on the floor he was clear. He has never passed out before per his report. CT head and C-spine CT are unremarkable. Echocardiogram was performed this morning. He denies any pain. From a social standpoint he reports his son lives in [place] and he is planning to move there himself. He reports his house is "a mess" and he cannot go back there and may need to live in a hotel until the time when he moves which is approximately 4 weeks from now. Son is supposed to be arriving within the next day or 2 to [place]. Physical Exam Physical Exam: CONSTITUTIONAL: WNWD, vitals as above, generally NAD EYES: pupils are round and equal bilaterally, normal conjunctivae, no scleral icterus ENT: external ear and nose normal, MMM NECK: trachea midline RESPIRATORY: clear to auscultation bilaterally, no crackles, rales or wheezes, normal respiratory effort CARDIOVASCULAR: regular rate and rhythm, S1 and 2 heard without murmurs, gallops or rubs, no JVD, no peripheral edema CHEST: inspection of chest was normal GASTROINTESTINAL: soft, nontender,ND, no guarding MUSCULOSKELETAL: generalized weakness, head is normocephalic and atraumatic SKIN: warm and dry NEUROLOGIC: CN 2-12 grossly intact, no sensory deficit, normal cognition, normal speech, no tremor PSYCHIATRIC: alert cooperative and oriented to person, place and time. Euthymic mood, makes good eye contact, language grossly intact, recent and remote memory grossly intact. Results & Data Results & Data Vital Signs (Past 12 Hours) Vital Signs Pulse Resp BP Pulse Ox O2 Del Method 03/30/23 07:22 88 03/30/23 06:00 85 15 143/85 H 95 Room Air 03/30/23 05:30 85 23 138/87 97 Room Air 03/30/23 05:00 85 18 146/87 H 98 Room Air 03/30/23 04:36 97 H 23 129/85 96 Room Air 03/30/23 04:30 97 Room Air 03/30/23 04:00 94 Room Air 03/30/23 03:30 95 Room Air 03/30/23 03:00 94 Room Air 03/30/23 02:30 84 24 163/106 H 97 Room Air 03/30/23 02:00 85 19 159/97 H 96 Room Air 03/30/23 01:31 97 H 17 186/114 H 95 Room Air 03/30/23 01:00 87 15 158/99 H 94 Room Air 03/30/23 00:30 94 H 23 150/101 H 93 Room Air 03/30/23 00:11 96 H 15 163/104 H 95 Room Air 03/30/23 00:00 90 15 03/29/23 23:38 94 Room Air 03/29/23 23:30 90 13 150/92 H 94 Room Air 03/29/23 23:12 99 H 03/29/23 23:00 91 H 14 163/115 H 03/29/23 22:30 91 H 20 146/91 H 97 Room Air 03/29/23 22:00 90 16 157/109 H 96 Room Air 03/29/23 21:30 93 H 19 161/111 H 97 Room Air 03/29/23 21:00 102 H 20 150/104 H 96 Room Air 03/29/23 20:54 96 H 03/29/23 20:30 110 H 19 94 Room Air 03/29/23 20:00 100 H 19 150/103 H 97 Room Air Laboratory Results Short CBC 03/29/23 03/29/23 03/29/23 Range/Units 17:10 18:45 23:04 WBC Cancelled 12.89 H 11.49 H Hgb Cancelled 15.4 15.1 Hct Cancelled 43.2 42.9 Plt Count Cancelled 220 217 03/30/23 Range/Units 04:42 WBC 10.16 Hgb 14.8 Hct 41.8 L Plt Count 217 BMP 03/29/23 03/29/23 03/30/23 17:10 18:45 04:42 Sodium 139 141 Potassium TNP 4.1 3.7 Chloride 105 107 Carbon Dioxide 23 24 BUN 19 19 Creatinine 1.09 1.05 Glucose 95 82 Calcium 9.3 8.6 Cardiac Enzymes 03/29/23 Range/Units 17:10 Total Creatine Kinase 574 H (30-223) U/L Liver Function 03/29/23 03/29/23 Range/Units 17:10 18:45 Total Bilirubin 2.2 H (0.2-1.0) mg/dl AST TNP 45 H ALT 22 (7-52) U/L Alkaline Phosphatase 86 (34-104) U/L Albumin 4.1 (3.4-5.0) gm/dl Medications Administered Current Inpatient Medications Acetaminophen (Acetaminophen 325 Mg Tab) 650 mg PO Q4H PRN PRN Reason: Pain or Fever Stop: 04/28/23 22:41 Aspirin (Aspirin 81 Mg Ectab) 81 mg PO DAILY [facility] Stop: 04/29/23 08:59 Heparin Sodium (Porcine) (Heparin Sod 5,000 Unit/0.5 Ml Vial) 5,000 units SQ Q12 [facility] Stop: 04/28/23 22:41 Last Admin: 03/30/23 00:03 Dose: 5,000 units Sodium Chloride (Nss) 1,000 mls @ 80 mls/hr IV .[id number] [facility] Stop: 03/30/23 23:41 Last Admin: 03/30/23 00:03 Dose: 80 mls/hr Multivitamins/Minerals (Cerovite Adv Formula Tab) 1 tab PO DAILY [facility] Stop: 04/29/23 08:59 Nitroglycerin (Nitroglycerin Sl 0.4 Mg/Tab Tab) 0.4 mg SL Q5M PRN PRN Reason: Chest Pain Stop: 04/28/23 22:41 Polyethylene Glycol (Polyethylene (Miralax) 17 Gm Pack) 17 gm PO DAILY PRN PRN Reason: Constipation Stop: 04/28/23 22:41 Vitamin D (Cholecalciferol 1,000 Units 25 Mcg Tab) 1,000 units PO DAILY [facility] Stop: 04/29/23 08:59
[2023-03-30] MEDS ORDERED: POTASSIUM CHLORIDE CRTAB 20 MEQ TABCR PO STA (07:40)
[2023-03-30] MEDS: MAGNESIUM SULFATE / D5W 1 GM/100 ML BAG IV SCH ×2 (08:23→10:51)
[2023-03-30] MEDS: CHOLECALCIFEROL 1,000 UNITS 25 MCG TAB PO SCH (08:24)
[2023-03-30] MEDS: CEROVITE ADV FORMULA TAB PO SCH (08:24)
[2023-03-30] MEDS: ASPIRIN 81 MG ECTAB PO SCH (08:24)
--- NOTE | 2023-03-30 09:14 | Electrocardiogram Report ---
Test Reason : Blood Pressure : / mmHG Vent. Rate : 102 BPM Atrial Rate : 000 BPM P-R Int : 000 ms QRS Dur : 080 ms QT Int : 498 ms P-R-T Axes : 000 031 055 degrees QTc Int : 649 ms Sinus rhythm with 1st degree A-V block with occasional Premature ventricular complexes Prolonged QT Abnormal ECG No previous ECGs available Confirmed by Audi Parsons ([id number]) on 03/30/2023 9:13:47 AM Referred By: REFERRED SELF Confirmed By:Audi Parsons
--- NOTE | 2023-03-30 09:18 | Electrocardiogram Report ---
Test Reason : Blood Pressure : / mmHG Vent. Rate : 087 BPM Atrial Rate : 000 BPM P-R Int : 000 ms QRS Dur : 082 ms QT Int : 584 ms P-R-T Axes : 000 023 044 degrees QTc Int : 702 ms Sinus rhythm with occasional Premature ventricular complexes Low voltage QRS Diffuse Minor Nonspecific T wave abnormality Prolonged QT Abnormal ECG When compared with ECG of 29-MAR-2023 17:21, Nonspecific T wave abnormality now evident in Anterior leads Confirmed by Audi Parsons ([id number]) on 03/30/2023 9:17:53 AM Referred By: REFERRED SELF Confirmed By:Audi Parsons
[2023-03-30 10:12] LABS: Appearance Urine Clear (Clear); Bacteria Urine Automated Negative (Negative); Blood Urine Negative (Negative); Color Urine Dark Yellow; Glucose Urine UA Negative (Negative); Ketones Urine 3+ (Negative); Leukocyte Esterase Urine Trace (Negative); Nitrite Urine Negative (Negative); Protein Urine 2+ (Negative); RBC Urine Automated 0-4 /hpf (0-4); Specific Gravity Urine 1.026 (1.000-1.030); Urobilinogen Urine Negative (Negative); pH Urine 5.5 (4.5-7.5)
[2023-03-30 10:17] LABS: Bilirubin Urine 1+ (Negative)
--- NOTE | 2023-03-30 11:34 | Cardiology Consultation ---
Date of Consultation March 30, 2023 Assessment & Plan (1) Syncope and collapse: (2) Elevated troponin: (3) Prolonged QT interval: Plan 87-year-old male suffered an acute syncopal event at home. No overt inciting cause. Echocardiogram with preserved LV function EKG concerning with first-degree AV block and prolonged QT interval. Currently asymptomatic but blood pressure elevated as a new finding Plan: Maintain telemetry, optimize electrolytes. Repeat hepatic enzymes Add amlodipine 5 mg now and every afternoon for hypertension currently Will consider outpatient monitoring depending on clinical course History of Present Illness Reason for Consultation: Syncope Requesting Physician: Dr. Orozco Attending Physician: Debi Orozco, DO History of Present Illness Patient is an 87-year-old male without prior history of cardiac disease referred for evaluation after acute hospitalization. 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 Generalized weakness all over. No chest pains, tachypalpitations or shortness of breath. Time on floor, indeterminate but possible 1 to 2 days before absence was noted. Patient notes no prior history of angina, myocardial infarction, congestive heart failure, rheumatic fever scarlet fever or heart murmur. No history of hypertension TIA or stroke. Physically active caring for his own home, works part-time at [employer]. Appetite and weight are stable. No fevers chills or unexplained infections. No bleeding difficulties. No problems with edema or sleep disturbance EKG on presentation sinus rhythm with first-degree AV block, QT prolongation Allergies Allergy/AdvReac Type Severity Reaction Status Date / Time No Known Allergies Allergy Unverified 03/29/23 20:25 Home Medications Medication Instructions Recorded Confirmed Type aspirin 81 mg tablet,delayed 81 mg PO DAILY 03/29/23 03/29/23 History release cholecalciferol (vitamin D3) 25 25 mcg PO DAILY 03/29/23 03/29/23 History mcg (1,000 unit) capsule multivitamin with minerals 1 tab PO DAILY 03/29/23 03/29/23 History (Multiple Vitamin-Minerals tablet) Patient History Medical History CKD (chronic kidney disease), stage III Social History Smoking Status: Never smoker Hx Alcohol Use: No Hx Substance Use: No Preferred Language: Yemeni Communication Ability: Effective Supervisor [employer] Required: No Beliefs That Will Affect Care: None Current Living Situation: Alone Feels Safe at Home: Yes Assistive Devices: None Physical Exam Constitutional: + obese; no acute distress Eyes: PERRL, conjunctivae normal, anicteric sclerae ENMT: external ear and nose normal, oropharynx normal Neck: trachea midline, no thyromegaly Respiratory: normal respiratory effort, lungs clear to auscultation Cardiovascular: Rate/Rhythm: regular rate and regular rhythm Heart Sounds: normal S1 and normal S2; no murmur Vessels: no JVD Extremities: no edema Gastrointestinal (Abdomen): normal bowel sounds, soft, nontender, no hepa tosplenomegaly Musculoskeletal: no cyanosis or clubbing, extremities motor strength 5/5 Skin: no rashes, warm and dry Neurologic: PERRL, EOMI, accommodation nl, no face palsy, no dysarthria Psychiatric: A+Ox3, euthymic affect Results & Data Vital Signs (Past 12 Hours) Vital Signs Temp Pulse Pulse Resp BP BP Pulse Ox 03/30/23 09:01 87 20 187/120 H 96 03/30/23 07:57 36.6 C 87 18 159/98 H 96 03/30/23 07:22 88 03/30/23 06:00 85 15 143/85 H 95 03/30/23 05:30 85 23 138/87 97 03/30/23 05:00 85 18 146/87 H 98 03/30/23 04:36 97 H 23 129/85 96 03/30/23 04:30 97 03/30/23 04:00 94 03/30/23 03:30 95 03/30/23 03:00 94 03/30/23 02:30 84 24 163/106 H 97 03/30/23 02:00 85 19 159/97 H 96 03/30/23 01:31 97 H 17 186/114 H 95 03/30/23 01:00 87 15 158/99 H 94 03/30/23 00:30 94 H 23 150/101 H 93 03/30/23 00:11 96 H 15 163/104 H 95 03/30/23 00:00 90 15 03/29/23 23:38 94 03/29/23 23:30 90 13 150/92 H 94 O2 Del Method 03/30/23 09:01 Room Air 03/30/23 07:57 Room Air 03/30/23 07:22 03/30/23 06:00 Room Air 03/30/23 05:30 Room Air 03/30/23 05:00 Room Air 03/30/23 04:36 Room Air 03/30/23 04:30 Room Air 03/30/23 04:00 Room Air 03/30/23 03:30 Room Air 03/30/23 03:00 Room Air 03/30/23 02:30 Room Air 03/30/23 02:00 Room Air 03/30/23 01:31 Room Air 03/30/23 01:00 Room Air 03/30/23 00:30 Room Air 03/30/23 00:11 Room Air 03/30/23 00:00 03/29/23 23:38 Room Air 03/29/23 23:30 Room Air Laboratory Results Laboratory Results - last 24 hr 03/29/23 03/29/23 03/29/23 17:10 17:25 18:45 WBC Cancelled 12.89 H RBC Cancelled 5.07 Hgb Cancelled 15.4 Hct Cancelled 43.2 MCV Cancelled 85.2 MCH Cancelled 30.4 MCHC Cancelled 35.6 RDW Std Deviation Cancelled 41.7 RDW Coeff of Dorothy Cancelled 13.7 Plt Count Cancelled 220 MPV Cancelled 8.4 L Immature Gran % (Auto) Cancelled 0.5 Neut % (Auto) Cancelled 81.2 Lymph % (Auto) Cancelled 9.2 [place] % (Auto) Cancelled 8.5 Eos % (Auto) Cancelled 0.2 Baso % (Auto) Cancelled 0.4 Neut # (Auto) Cancelled 10.47 H Lymph # (Auto) Cancelled 1.18 L [place] # (Auto) Cancelled 1.10 H Eos # (Auto) Cancelled 0.02 Baso # (Auto) Cancelled 0.05 Immature Gran # (Auto) Cancelled 0.07 Absolute Nucleated RBC Cancelled Nucleated RBC % (auto) Cancelled Neutrophils % (Manual) Cancelled Band Neutrophils % Cancelled Lymphocytes % (Manual) Cancelled Prolymphocyte % Cancelled Reactive Lymphs % (Man) Cancelled Monocytes % (Manual) Cancelled Eosinophils % (Manual) Cancelled Basophils % (Manual) Cancelled Metamyelocytes % (Man) Cancelled Myelocytes % (Man) Cancelled Promyelocytes % (Man) Cancelled Blast Cells % (Manual) Cancelled Plasma Cell % (Manual) Cancelled Other Cells % Cancelled Nucleated RBC % Cancelled Neutrophils # (Manual) Cancelled Band Neutrophils # Cancelled Total Absolute Neuts Cancelled Lymphocytes # (Manual) Cancelled Prolymphocyte # Cancelled Reactive Lymphs # Cancelled Total Abs Lymphocytes Cancelled Monocytes # (Manual) Cancelled Eosinophils # (Manual) Cancelled Basophils # (Manual) Cancelled Metamyelocytes # (Man) Cancelled Myelocytes # (Manual) Cancelled Promyelocytes # (Man) Cancelled Blast Cells # (Man) Cancelled Plasma Cell # (Manual) Cancelled Other Cells # Cancelled Nucleated RBCs # (Man) Cancelled Hypersegmented Neuts Cancelled Hyposegmented Neuts Cancelled Hypogranular Neuts Cancelled Large Granular Lymphs Cancelled # Lrg Granular Lymphs Cancelled Hairy Cells Cancelled Smudge Cells Cancelled Toxic Granulation Cancelled Toxic Vacuolation Cancelled Dohle Bodies Cancelled Bakari Rods Cancelled Platelet Estimate Cancelled Hypogranular Platelets Cancelled Giant Platelets Cancelled Platelet Satelliting Cancelled RBC Morphology Cancelled Polychromasia Cancelled Hypochromasia Cancelled Poikilocytosis Cancelled Basophilic Stippling Cancelled Anisocytosis Cancelled Microcytosis Cancelled Macrocytosis Cancelled Spherocytes Cancelled Pappenheimer Bodies Cancelled Sickle Cells Cancelled Target Cells Cancelled Tear Drop Cells Cancelled Ovalocytes Cancelled Stomatocytes Cancelled [place] Bodies Cancelled Echinocytes Cancelled Acanthocytes (Spur) Cancelled Rouleaux Cancelled RBC Agglutinates Cancelled Schistocytes Cancelled Sezary Cell Cancelled PT 11.8 INR 1.1 Sodium 139 Potassium TNP 4.1 Chloride 105 Carbon Dioxide 23 Anion Gap 11 BUN 19 Creatinine 1.09 Est Cr Clr Drug Dosing 46.4 Est GFR ( Amer) 70.9 Est GFR (Non-Af Amer) 61.1 BUN/Creatinine Ratio 17.4 Glucose 95 Calcium 9.3 Magnesium 2.1 Total Bilirubin 2.2 H AST TNP 45 H ALT 22 Alkaline Phosphatase 86 Total Creatine Kinase 574 H Troponin I High Sens 44.3 H 47.6 H Total Protein 7.4 Albumin 4.1 Globulin 3.3 Albumin/Globulin Ratio 1.2 TSH 2.507 Urine Color Urine Appearance Urine pH Ur Specific [place] Urine Protein Urine Glucose (UA) Urine Ketones Urine Blood Urine Nitrite Urine Bilirubin Urine Urobilinogen Ur Leukocyte Esterase Urine WBC (Auto) Urine RBC (Auto) U Hyaline Cast (Auto) U Epithel Cells (Auto) Urine Bacteria (Auto) SARS-CoV-2, RNA, NAAT NEGATIVE Blood Parasites ID Cancelled 03/29/23 03/29/23 03/30/23 21:24 23:04 04:42 WBC 11.49 H 10.16 RBC 5.05 4.84 Hgb 15.1 14.8 Hct 42.9 41.8 L MCV 85.0 86.4 MCH 29.9 30.6 MCHC 35.2 35.4 RDW Std Deviation 42.5 42.3 RDW Coeff of Dorothy 13.7 13.7 Plt Count 217 217 MPV 8.4 L 8.5 L Immature Gran % (Auto) 0.5 Neut % (Auto) 71.6 Lymph % (Auto) 17.3 [place] % (Auto) 9.4 Eos % (Auto) 0.7 Baso % (Auto) 0.5 Neut # (Auto) 7.27 H Lymph # (Auto) 1.76 [place] # (Auto) 0.96 H Eos # (Auto) 0.07 Baso # (Auto) 0.05 Immature Gran # (Auto) 0.05 Absolute Nucleated RBC Nucleated RBC % (auto) Neutrophils % (Manual) Band Neutrophils % Lymphocytes % (Manual) Prolymphocyte % Reactive Lymphs % (Man) Monocytes % (Manual) Eosinophils % (Manual) Basophils % (Manual) Metamyelocytes % (Man) Myelocytes % (Man) Promyelocytes % (Man) Blast Cells % (Manual) Plasma Cell % (Manual) Other Cells % Nucleated RBC % Neutrophils # (Manual) Band Neutrophils # Total Absolute Neuts Lymphocytes # (Manual) Prolymphocyte # Reactive Lymphs # Total Abs Lymphocytes Monocytes # (Manual) Eosinophils # (Manual) Basophils # (Manual) Metamyelocytes # (Man) Myelocytes # (Manual) Promyelocytes # (Man) Blast Cells # (Man) Plasma Cell # (Manual) Other Cells # Nucleated RBCs # (Man) Hypersegmented Neuts Hyposegmented Neuts Hypogranular Neuts Large Granular Lymphs # Lrg Granular Lymphs Hairy Cells Smudge Cells Toxic Granulation Toxic Vacuolation Dohle Bodies Bak[place] Rods Platelet Estimate Hypogranular Platelets Giant Platelets Platelet Satelliting RBC Morphology Polychromasia Hypochromasia Poikilocytosis Basophilic Stippling Anisocytosis Microcytosis Macrocytosis Spherocytes Pappenheimer Bodies Sickle Cells Target Cells Tear Drop Cells Ovalocytes Stomatocytes [place] Bodies Echinocytes Acanthocytes (Spur) Rouleaux RBC Agglutinates Schistocytes Sezary Cell PT INR Sodium 141 Potassium 3.7 Chloride 107 Carbon Dioxide 24 Anion Gap 10 BUN 19 Creatinine 1.05 Est Cr Clr Drug Dosing 48.2 Est GFR ( Amer) 74.1 Est GFR (Non-Af Amer) 64.0 BUN/Creatinine Ratio 18.1 Glucose 82 Calcium 8.6 Magnesium 2.1 Total Bilirubin AST ALT Alkaline Phosphatase Total Creatine Kinase Troponin I High Sens 50.2 H* 38.3 H D Total Protein Albumin Globulin Albumin/Globulin Ratio TSH Urine Color Urine Appearance Urine pH Ur Specific [place] Urine Protein Urine Glucose (UA) Urine Ketones Urine Blood Urine Nitrite Urine Bilirubin Urine Urobilinogen Ur Leukocyte Esterase Urine WBC (Auto) Urine RBC (Auto) U Hyaline Cast (Auto) U Epithel Cells (Auto) Urine Bacteria (Auto) SARS-CoV-2, RNA, NAAT Blood Parasites ID 03/30/23 03/30/23 07:52 09:50 WBC RBC Hgb Hct MCV MCH MCHC RDW Std Deviation RDW Coeff of [place] Plt Count MPV Immature Gran % (Auto) Neut % (Auto) Lymph % (Auto) [place] % (Auto) Eos % (Auto) Baso % (Auto) Neut # (Auto) Lymph # (Auto) [place] # (Auto) Eos # (Auto) Baso # (Auto) Immature Gran # (Auto) Absolute Nucleated RBC Nucleated RBC % (auto) Neutrophils % (Manual) Band Neutrophils % Lymphocytes % (Manual) Prolymphocyte % Reactive Lymphs % (Man) Monocytes % (Manual) Eosinophils % (Manual) Basophils % (Manual) Metamyelocytes % (Man) Myelocytes % (Man) Promyelocytes % (Man) Blast Cells % (Manual) Plasma Cell % (Manual) Other Cells % Nucleated RBC % Neutrophils # (Manual) Band Neutrophils # Total Absolute Neuts Lymphocytes # (Manual) Prolymphocyte # Reactive Lymphs # Total Abs Lymphocytes Monocytes # (Manual) Eosinophils # (Manual) Basophils # (Manual) Metamyelocytes # (Man) Myelocytes # (Manual) Promyelocytes # (Man) Blast Cells # (Man) Plasma Cell # (Manual) Other Cells # Nucleated RBCs # (Man) Hypersegmented Neuts Hyposegmented Neuts Hypogranular Neuts Large Granular Lymphs # Lrg Granular Lymphs Hairy Cells Smudge Cells Toxic Granulation Toxic Vacuolation Dohle Bodies Bakari Rods Platelet Estimate Hypogranular Platelets Giant Platelets Platelet Satelliting RBC Morphology Polychromasia Hypochromasia Poikilocytosis Basophilic Stippling Anisocytosis Microcytosis Macrocytosis Spherocytes Pappenheimer Bodies Sickle Cells Target Cells Tear Drop Cells Ovalocytes Stomatocytes [place] Bodies Echinocytes Acanthocytes (Spur) Rouleaux RBC Agglutinates Schistocytes Sezary Cell PT INR Sodium Potassium Chloride Carbon Dioxide Anion Gap BUN Creatinine Est Cr Clr Drug Dosing Est GFR ( Amer) Est GFR (Non-Af Amer) BUN/Creatinine Ratio Glucose Calcium Magnesium Total Bilirubin AST ALT Alkaline Phosphatase Total Creatine Kinase 282 H Troponin I High Sens Total Protein Albumin Globulin Albumin/Globulin Ratio TSH Urine Color Dark Yellow Urine Appearance Clear Urine pH 5.5 Ur Specific [place] 1.026 Urine Protein 2+ H Urine Glucose (UA) Negative Urine Ketones 3+ H Urine Blood Negative Urine Nitrite Negative Urine Bilirubin 1+ H Urine Urobilinogen Negative Ur Leukocyte Esterase Trace H Urine WBC (Auto) 10-30 H Urine RBC (Auto) 0-4 U Hyaline Cast (Auto) 1-5 U Epithel Cells (Auto) 5-10 H Urine Bacteria (Auto) Negative SARS-CoV-2, RNA, NAAT Blood Parasites ID
[2023-03-30] MEDS ORDERED: amLODIPine BESYLATE 5 MG TAB PO ONE (11:45)
[2023-03-30 13:39] LABS: Albumin Level 3.8 gm/dl (3.4-5.0); Bilirubin Direct 0.5 mg/dl (0-0.2); Bilirubin,Total 2.2 mg/dl (0.2-1.0); Total Protein 6.6 gm/dl (6.0-8.3)
[2023-03-30] MEDS: amLODIPine BESYLATE 5 MG TAB PO SCH (20:26)
[2023-03-31] MEDS: CEROVITE ADV FORMULA TAB PO SCH (08:40)
[2023-03-31] MEDS: HEPARIN SOD 5,000 UNIT/0.5 ML VIAL SQ SCH ×2 (08:40→20:50)
[2023-03-31] MEDS: ASPIRIN 81 MG ECTAB PO SCH (08:40)
[2023-03-31] MEDS: CHOLECALCIFEROL 1,000 UNITS 25 MCG TAB PO SCH (08:40)
[2023-03-31 08:49] LABS: Hematocrit (blood only) 37.5 % (42.0-52.0); Hemoglobin 13.3 g/dl (14.0-18.0); Mean Corpuscular Hemoglobin 30.5 pg (25.0-34.0); Mean Corpuscular Hgb Conc 35.5 g/dL (32.0-36.0); Mean Platelet Volume 8.8 fL (9.4-12.4); Platelet Count 199 K/uL (130-400); RDW Coefficient of Variation 13.7 % (11.5-14.5); RDW Standard Deviation 42.5 fL (36.4-46.3); Red Blood Count 4.36 M/uL (4.70-6.10); White Blood Count 7.49 K/ul (4.8-10.8)
[2023-03-31 09:07] LABS: Anion Gap 6 (3-11); Blood Urea Nitrogen 19 mg/dl (6-23); Carbon Dioxide 24 mmol/L (21-32); Chloride 107 mmol/L (98-107); Creatinine Clr Calc Pharmacy 45.5 ml/min; Est GFR (African American) 68.6 ml/min; Est GFR (Non-African American) 59.2 ml/min; Glucose 91 mg/dl (70-99(Fasting)); Magnesium 2.2 mg/dl (1.7-2.4); Sodium 137 mmol/L (136-145)
[2023-03-31 10:47] LABS: Estimated Average Glucose 94 mg/dl; Hemoglobin A1C 4.9 % (4.5-5.6)
--- NOTE | 2023-03-31 12:02 | Cardiology Progress Note ---
Date of Service March 31, 2023 Assessment & Plan (1) Syncope and collapse: (2) Elevated troponin: (3) Prolonged QT interval: Plan 87-year-old male suffered an acute syncopal event at home. No overt inciting cause. Echocardiogram with preserved LV function EKG concerning with first-degree AV block and prolonged QT interval. Currently asymptomatic but blood pressure elevated as a new finding Plan: Maintain telemetry, optimize electrolytes. Repeat hepatic enzymes Add amlodipine 5 mg now and every afternoon for hypertension currently Will consider outpatient monitoring depending on clinical course 03/31/2023 1. Syncopal event, unexplained. No arrhythmias on telemetry. EKG sinus rhythm with first-degree AV block. QT prolongation has resolved with hydration, electrolyte optimization and blood pressure control. LV systolic function is normal. No evidence to suggest acute ischemic event Recommendations: Continue amlodipine 5 mg/day for hypertension. Would recommend outpatient event monitor to assess for atrial or ventricular arrhythmias. Javier wadsworth anticipates relocation to [facility] in very near future would recommend establishing with cardiology at that time Admission and Anticipated Discharge Date Admission Date: March 29, 2023 Subjective Patient seen and examined, chart, medications, telemetry reviewed No cardiac complaints overnight feels well. Ambulatory in room. No dizziness or lightheadedness. No arrhythmias on telemetry. EKG improved Blood pressure controlled Review of Systems Review of Systems: All systems reviewed & are unremarkable except as noted in Subjective Physical Exam Constitutional: + obese; no acute distress Eyes: PERRL, conjunctivae normal, anicteric sclerae ENMT: external ear and nose normal, oropharynx normal Neck: trachea midline, no thyromegaly Respiratory: normal respiratory effort, lungs clear to auscultation Cardiovascular: Rate/Rhythm: regular rate and regular rhythm Heart Sounds: normal S1 and normal S2; no murmur Vessels: no JVD Extremities: no edema Gastrointestinal (Abdomen): normal bowel sounds, soft, nontender, no hepatosplenomegaly Musculoskeletal: no cyanosis or clubbing, extremities motor strength 5/5 Skin: no rashes, warm and dry Neurologic: PERRL, EOMI, accommodation nl, no face palsy, no dysarthria Psychiatric: A+Ox3, euthymic affect Results & Data Vital Signs (Past 12 Hours) Vital Signs Temp Pulse Pulse Resp BP Pulse Ox O2 Del Method 03/31/23 08:09 70 03/31/23 07:55 36.9 C 69 18 124/68 94 Room Air 03/31/23 04:48 Room Air 03/31/23 02:51 36.6 C 96 H 18 134/65 91 Room Air 03/31/23 01:10 Room Air ECG Additional Comments: EKG 03/31/2023 Sinus rhythm with first-degree AV block, rate 84 bpm, QT corrected 434
--- NOTE | 2023-03-31 14:44 | Electrocardiogram Report ---
Test Reason : Blood Pressure : / mmHG Vent. Rate : 084 BPM Atrial Rate : 084 BPM P-R Int : 230 ms QRS Dur : 084 ms QT Int : 368 ms P-R-T Axes : 042 018 021 degrees QTc Int : 434 ms Sinus rhythm with 1st degree A-V block Diffuse Minor Nonspecific T wave abnormality Abnormal ECG When compared with ECG of 30-MAR-2023 06:30, Premature ventricular complexes are no longer Present UT interval has increased Confirmed by Audi Parsons ([id number]) on 03/31/2023 2:44:13 PM Referred By: REFERRED SELF Confirmed By:Audi Parsons
--- NOTE | 2023-03-31 14:52 | Hospitalist Progress Note ---
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 and generalized weakness Uncertain cause of syncope, rule out TIA CT head and CT cervical spine are okay and chest x-ray okay MR brain with ongoing gait issues and new report to son that patient had transient right arm weakness. Currently hemoglobin stable Orthostatics qshift are negative and will stop trending. Echocardiogram with preserved EF, subtle hypokinesis ofo the ingerior posterior base with all wall segments kaleb normally. Grade I DD present and no significant valve disease. PT OT evaluations pending. Per cardiology, cont amlodipine for HTN. OUtpatient event monitor recommended to assess for atrial or ventricular arrhythmias. Would recommend establishing with cardiology in [place] after he moves (2) Weakness: Plan: Patient is elderly with chronic comorbidities. It is uncertain if there are otherAcute reasons for his weakness and fall which are being explored. Still awaiting urinalysis collection PT/OT ordered. (3) Prolonged QT interval: Plan: Significant QTc around 700ms. Mg and K replaced to achieve 2 and 4, respectively. QTc resolved to normal on repeat EKG . (4) Elevated CK: Plan: 2/2 lying on the floor for a prolonged period of time. This is trending down. Continue gentle hydration. (5) Elevated troponin: Plan: No chest pain or EKG changes consistent with ischemia, doubt ACS. Likely related to demand ischemia. (6) CKD (chronic kidney disease), stage III: Plan: chronic, at baseline. (7) Memory deficit: Plan: Per initial admission records. Patient lives alone. He appears to be rather functional and is answering questions appropriately. He is oriented. Continue supportive care. DVT prophylaxis- Heparin subcu Disposition--Med/tele Full code I spent a total [id number] coordinating, documenting, and providing care for this patient excluding time spent in the performance of separately billed services Debi Orozco DO [facility] Hospitalist Admission and Anticipated Discharge Date Admission Date: March 29, 2023 Subjective 87-year-old man who lives alone and ambulates independently reports walking in his room 2 days ago with a sudden loss of consciousness and remained weak and unable to get up for approximately 48 hours. some history of memory loss per son pt reports not wanting to be here denies any symptoms ambulating with walker and appears very unsteady still awaiting PT/OT evaluations to assist with placement. spoke with son by phon for 15 minutes and all questions answered. will plan to touch base with him again after therapy recs are in. may need SNF Son also reports that father reported some right hand weakness while lying on the floor and son was thinking TIA CT head negative, we discussed following up with an MRI brain given ongoing ambulation issues. Physical Exam Physical Exam: CONSTITUTIONAL: WNWD, vitals as above, generally NAD EYES: pupils are round and equal bilaterally, normal conjunctivae, no scleral icterus ENT: external ear and nose normal, MMM NECK: trachea midline RESPIRATORY: clear to auscultation bilaterally, no crackles, rales or wheezes, normal respiratory effort CARDIOVASCULAR: regular rate and rhythm, S1 and 2 heard without murmurs, gallops or rubs, no JVD, no peripheral edema CHEST: inspection of chest was normal GASTROINTESTINAL: soft, nontender,ND, no guarding MUSCULOSKELETAL: generalized weakness, head is normocephalic and atraumatic SKIN: warm and dry NEUROLOGIC: CN 2-12 grossly intact, no sensory deficit, normal cognition, rodrick l speech, no tremor PSYCHIATRIC: alert cooperative and oriented to person, place and time. Does tend to repeat information that he just said. Euthymic mood, makes good eye contact, language grossly intact. Results & Data Results & Data Vital Signs (Past 12 Hours) Vital Signs Temp Pulse Pulse Resp BP Pulse Ox O2 Del Method 03/31/23 14:49 81 03/31/23 08:09 70 03/31/23 07:55 36.9 C 69 18 124/68 94 Room Air 03/31/23 04:48 Room Air Laboratory Results Short CBC 03/31/23 Range/Units 08:11 WBC 7.49 (4.8-10.8) K/ul Hgb 13.3 L (14.0-18.0) g/dl Hct 37.5 L (42.0-52.0) % Plt Count 199 (130-400) K/uL BMP 03/31/23 03/31/23 08:11 09:14 Sodium 137 Potassium TNP 3.6 Chloride 107 Carbon Dioxide 24 BUN 19 Creatinine 1.12 Glucose 91 Calcium 8.0 L Medications Administered Current Inpatient Medications Acetaminophen (Acetaminophen 325 Mg Tab) 650 mg PO Q4H PRN PRN Reason: Pain or Fever Stop: 04/28/23 22:41 Amlodipine Besylate (Amlodipine Besylate 5 Mg Tab) 5 mg PO QPM [facility]LEY Stop: 04/29/23 20:59 Last Admin: 03/30/23 20:26 Dose: 5 mg Aspirin (Aspirin 81 Mg Ectab) 81 mg PO DAILY [facility] Stop: 04/29/23 08:59 Last Admin: 03/31/23 08:40 Dose: 81 mg Heparin Sodium (Porcine) (Heparin Sod 5,000 Unit/0.5 Ml Vial) 5,000 units SQ Q12 [facility]LEY Stop: 04/28/23 22:41 Last Admin: 03/31/23 08:40 Dose: 5,000 units Multivitamins/Minerals (Cerovite Adv Formula Tab) 1 tab PO DAILY [facility] Stop: 04/29/23 08:59 Last Admin: 03/31/23 08:40 Dose: 1 tab Nitroglycerin (Nitroglycerin Sl 0.4 Mg/Tab Tab) 0.4 mg SL Q5M PRN PRN Reason: Chest Pain Stop: 04/28/23 22:41 Polyethylene Glycol (Polyethylene (Miralax) 17 Gm Pack) 17 gm PO DAILY PRN PRN Reason: Constipation Stop: 04/28/23 22:41 Vitamin D (Cholecalciferol 1,000 Units 25 Mcg Tab) 1,000 units PO DAILY [facility] Stop: 04/29/23 08:59 Last Admin: 03/31/23 08:40 Dose: 1,000 units (6) CKD (chronic kidney disease), stage III Chronic kidney disease stage 3 subtype: unspecified whether 3a or 3b Qualified Code(s): N18.30 - Chronic kidney disease, stage 3 unspecified
[2023-03-31] MEDS: amLODIPine BESYLATE 5 MG TAB PO SCH (20:50)
[2023-03-31 21:25] LABS: Chol HDL Ratio 4.1 (0-5); Cholesterol 172 mg/dl (0-200); HDL Cholesterol 42 mg/dl; LDL Cholesterol Calculated 111 mg/dl; Triglycerides 95 mg/dl (0-150); VLDL Cholesterol 19 mg/dl (0-30)
[2023-04-01] MEDS: HEPARIN SOD 5,000 UNIT/0.5 ML VIAL SQ SCH ×2 (08:53→21:01)
[2023-04-01] MEDS: CHOLECALCIFEROL 1,000 UNITS 25 MCG TAB PO SCH (08:53)
[2023-04-01] MEDS: ASPIRIN 81 MG ECTAB PO SCH (08:53)
[2023-04-01] MEDS: CEROVITE ADV FORMULA TAB PO SCH (08:53)
[2023-04-01 09:49] LABS: Hemoglobin 14.2 g/dl (14.0-18.0); Mean Corpuscular Hemoglobin 30.1 pg (25.0-34.0); Mean Corpuscular Hgb Conc 35.5 g/dL (32.0-36.0); Mean Corpuscular Volume 84.9 fL (80.0-100.0); Mean Platelet Volume 8.6 fL (9.4-12.4); Platelet Count 232 K/uL (130-400); RDW Coefficient of Variation 13.4 % (11.5-14.5); Red Blood Count 4.71 M/uL (4.70-6.10); White Blood Count 6.77 K/ul (4.8-10.8)
[2023-04-01 10:04] LABS: Albumin Level 3.6 gm/dl (3.4-5.0); BUN Creatinine Ratio 15.6 (10-20); Bilirubin Direct 0.2 mg/dl (0-0.2); Bilirubin,Total 1.2 mg/dl (0.2-1.0); Calcium 8.5 mg/dl (8.6-10.3); Creatinine Clr Calc Pharmacy 46.7 ml/min; Est GFR (African American) 70.9 ml/min; Est GFR (Non-African American) 61.1 ml/min; Phosphorus 2.3 mg/dl (2.5-4.9); Potassium 3.9 mmol/L (3.5-5.1); Total Protein 6.3 gm/dl (6.0-8.3)
[2023-04-01 10:28] LABS: Folate (Folic Acid),Ser orPlas 8.44 ng/ml (>5.38)
--- NOTE | 2023-04-01 12:58 | Hospitalist Progress Note ---
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 and generalized weakness Uncertain cause of syncope, rule out TIA CT head and CT cervical spine are okay and chest x-ray okay MR brain with ongoing gait issues and new report to son that patient had transient right arm weakness. Pt denies this Currently hemoglobin stable Orthostatics qshift are negative and will stop trending. Echocardiogram with preserved EF, subtle hypokinesis of the inferior posterior base with all wall segments kaleb normally. Grade I DD present and no significant valve disease. PT OT evaluations pending. Per cardiology, cont amlodipine for HTN. Outpatient event monitor recommended to assess for atrial or ventricular arrhythmias. Would recommend establishing with cardiology in [place] after he moves (2) Weakness: Plan: Patient is elderly with chronic comorbidities. It is uncertain if there are otherAcute reasons for his weakness and fall which are being explored. UA clear of infection, PT/OT ordered. Appears to be improved. He can independently sit up in bed for me today and is able to stand up at bedside without much issue. (3) Prolonged QT interval: Plan: Significant QTc around 700msresolved. Mg and K replaced to achieve 2 and 4, respectively. QTc resolved to normal on repeat EKG . (4) Elevated CK: Plan: 2/2 lying on the floor for a prolonged period of time. This is trending down. Continue gentle hydration. No further workup. (5) Elevated troponin: Plan: No chest pain or EKG changes consistent with ischemia, doubt ACS. Likely related to demand ischemia. No further workup inpatient. (6) CKD (chronic kidney disease), stage III: Plan: chronic, at baseline. (7) Memory deficit: Plan: Per initial admission records. Patient lives alone. He appears to be rather functional and is answering questions appropriately. He is oriented. Possibly with some MCI but would defer any formal diagnosis until he is better and back to baseline. Continue supportive care. Cont outpatient neuropsych testing. DVT prophylaxis- Heparin subcu Disposition--Med/tele Full code Debi Orozco DO [facility] Hospitalist Admission and Anticipated Discharge Date Admission Date: March 29, 2023 Subjective 87-year-old man who lives alone and ambulates independently reports walking in his room 2 days ago with a sudden loss of consciousness and remained weak and unable to get up for approximately 48 hours. feels well today, eager to return home he reports walking well, however nurse at bedside states he was unsteady and required prompting denies any symptoms today he denies any knowledge of right arm weakness when lying on the floor or other stroke symptoms he reports generalized weakness not allowing him to get up during that time. we discussed the plan for MRI brain and formal therapy evaluations. he verbalized understanding. Physical Exam Physical Exam: CONSTITUTIONAL: WNWD, vitals as above, generally NAD EYES: pupils are round and equal bilaterally, normal conjunctivae, no scleral icterus ENT: external ear and nose normal, MMM NECK: trachea midline RESPIRATORY: clear to auscultation bilaterally, no crackles, rales or wheezes, normal respiratory effort CARDIOVASCULAR: regular rate and rhythm, S1 and 2 heard without murmurs, gallops or rubs, no JVD, no peripheral edema CHEST: inspection of chest was normal GASTROINTESTINAL: soft, nontender,ND, no guarding MUSCULOSKELETAL: generalized weakness, head is normocephalic and atraumatic SKIN: warm and dry NEUROLOGIC: CN 2-12 grossly intact, no sensory deficit, normal cognition, normal speech, no tremor PSYCHIATRIC: alert cooperative and oriented to person, place and time. Does tend to repeat information that he just said. Euthymic mood, makes good eye contact, language grossly intact. Results & Data Results & Data Vital Signs (Past 12 Hours) Vital Signs Temp Pulse Pulse Resp BP Pulse Ox O2 Del Method 04/01/23 11:41 36.7 C 76 20 164/88 H 94 Room Air 04/01/23 07:47 36.7 C 76 20 148/78 H 97 Room Air 04/01/23 07:09 71 04/01/23 05:13 36.7 C 74 18 128/81 96 Room Air 04/01/23 05:12 Room Air Laboratory Results Short CBC 04/01/23 Range/Units 09:10 WBC 6.77 (4.8-10.8) K/ul Hgb 14.2 (14.0-18.0) g/dl Hct 40.0 L (42.0-52.0) % Plt Count 232 (130-400) K/uL BMP 04/01/23 09:10 Sodium 138 Potassium 3.9 Chloride 106 Carbon Dioxide 26 BUN 17 Creatinine 1.09 Glucose 131 H Calcium 8.5 L Liver Function 04/01/23 Range/Units 09:10 Total Bilirubin 1.2 H (0.2-1.0) mg/dl Direct Bilirubin 0.2 (0-0.2) mg/dl AST 30 (13-39) U/L ALT 23 (7-52) U/L Alkaline Phosphatase 72 (34-104) U/L Albumin 3.6 (3.4-5.0) gm/dl Medications Administered Current Inpatient Medications Acetaminophen (Acetaminophen 325 Mg Tab) 650 mg PO Q4H PRN PRN Reason: Pain or Fever Stop: 04/28/23 22:41 Amlodipine Besylate (Amlodipine Besylate 5 Mg Tab) 5 mg PO QPM STANLEY Stop: 04/29/23 20:59 Last Admin: 03/31/23 20:50 Dose: 5 mg Aspirin (Aspirin 81 Mg Ectab) 81 mg PO DAILY STANLEY Stop: 04/29/23 08:59 Last Admin: 04/01/23 08:53 Dose: 81 mg Heparin Sodium (Porcine) (Heparin Sod 5,000 Unit/0.5 Ml Vial) 5,000 units SQ Q12 STANLEY Stop: 04/28/23 22:41 Last Admin: 04/01/23 08:53 Dose: 5,000 units Multivitamins/Minerals (Cerovite Adv Formula Tab) 1 tab PO DAILY STANLEY Stop: 04/29/23 08:59 Last Admin: 04/01/23 08:53 Dose: 1 tab Nitroglycerin (Nitroglycerin Sl 0.4 Mg/Tab Tab) 0.4 mg SL Q5M PRN PRN Reason: Chest Pain Stop: 04/28/23 22:41 Polyethylene Glycol (Polyethylene (Miralax) 17 Gm Pack) 17 gm PO DAILY PRN PRN Reason: Constipation Stop: 04/28/23 22:41 Vitamin D (Cholecalciferol 1,000 Units 25 Mcg Tab) 1,000 units PO DAILY STANLEY Stop: 04/29/23 08:59 Last Admin: 04/01/23 08:53 Dose: 1,000 units (6) CKD (chronic kidney disease), stage III Chronic kidney disease stage 3 subtype: unspecified whether 3a or 3b Qualified Code(s): N18.30 - Chronic kidney disease, stage 3 unspecified
--- NOTE | 2023-04-01 16:35 | Magnetic Resonance Report ---
MR brain wo con HISTORY: 87 years-old Male unsteady gait, falls, r/o stroke Acute stroke-like symptoms. COMPARISON: Head CT 03/29/2023. TECHNIQUE: Multiplanar and multisequence MRI of the brain was obtained without the use of IV contrast . FINDINGS: Scattered subcentimeter foci of restricted diffusion is noted within the centrum semiovale of the asia ateral frontoparietal lobes and also within the superior frontal lobe cortices. There are additional subcentimeter foci noted within the left parieto-occipital distribution. These foci demonstrate inter mediate signal on the ADC map. No acute intracranial hemorrhage, midline shift, intracranial mass, hy drocephalus, acute territorial infarct or abnormal extra-axial collection. Involutional changes with moderate white matter T2/FLAIR hyperintense foci suggestive of chronic microvascular ischemic disease . Midline structures are unremarkable and degenerative changes of the cervical spine. Partially empty sella. The calvarium is intact. Mastoid air cells are clear. [id number] mucosal thickening of the para nasal sinuses appears chronic. Cerebral venous sinuses and major arterial flow voids appear patent. IMPRESSION: 1. Scattered subcentimeter [id number]-appearing infarcts within the cerebral hemispheres, most pronounced within the bilateral centrum semiovale and superior frontal lobe cortices with a few janny tional punctate foci noted within the left parieto-occipital distribution. 2. No acute or subacute territorial infarct, midline shift, abnormal extra-axial collection, hydrocep halus or intracranial mass. 3. Involutional changes with moderate chronic microvascular ischemic disease. ACT 112: Negative or not required by law. The above report was generated using voice recognition software. It may contain grammatical, syntax o r spelling errors. Dictated: 04/01/2023 2:49 PM Transcribed: 04/01/2023 3:30 PM Rolando [id number] [email or web address] Electronically signed by: Miguel Mansfield M.D. 04/01/2023 4:34 PM
[2023-04-01] MEDS ORDERED: OPTIRAY 320 125ml IV ONE (20:08)
[2023-04-01] MEDS: ATORVASTATIN 40 MG TAB PO SCH (21:01)
[2023-04-01] MEDS: amLODIPine BESYLATE 5 MG TAB PO SCH (21:01)
--- NOTE | 2023-04-01 23:22 | CT Scan Report ---
Exam(s): CT HEAD, CTA HEAD W/WO Contrast IV Amt: 116 ml optiray 320 EXAM: CT Head With Intravenous Contrast CLINICAL HISTORY: Reason for exam: embolic appearing stroke. TECHNIQUE: Axial computed tomography images of the head/brain with intravenous contrast. Automated exposure control was utilized for the study. A dose lowering technique was utilized adhering to the principles of ALARA. CONTRAST: Patient received 116 ml optiray 320 of IV contrast COMPARISON: CT brain 03/29/2023, MRI brain 04/01/2023. FINDINGS: Brain: No acute hemorrhage or abnormal extra-axial fluid collection. Small acute right frontal and parietal small nonhemorrhagic cortical infarcts are identified. No associated mass-effect. Mild supratentorial periventricular and subcortical white matter changes. Age-appropriate generalized atrophy. Ventricles: No hydrocephalus. No midline shift. Bones/joints: Unremarkable. No acute fracture. Soft tissues: Unremarkable. Sinuses: Left maxillary sinus wall and mucosal thickening consistent with chronic sinus disease. No acute sinusitis. IMPRESSION: The right frontal and parietal small cortical acute nonhemorrhagic infarct seen on MRI are visible. The remainder of the smaller scattered infarcts are not visible. No evidence for acute hemorrhage. . EXAM: CT Angiography Head With Intravenous Contrast CLINICAL HISTORY: Reason for exam: embolic appearing stroke. TECHNIQUE: Axial computed tomographic angiography images of the head with intravenous contrast. CTDI is 29.23 mGy and DLP is 512.02 mGy-cm. Automated exposure control was utilized for the study. A dose lowering technique was utilized adhering to the principles of ALARA. 3D and MIP reconstructed images were created and reviewed. CONTRAST: Patient received 116 ml optiray 320 of IV contrast COMPARISON: No relevant prior studies available. FINDINGS: Right internal carotid artery: Mild calcified plaque at the cavernous internal carotid artery with intact distal runoff. 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 3 mm aneurysmal dilatation of the at the level of the origin of the posterior communicating artery which is otherwise not identified. Right anterior cerebral artery: Severe stenosis of proximal A2 segment with intact distal runoff. Multifocal additional stenoses without occlusion. No occlusion or significant stenosis. No aneurysm. Right middle cerebral artery: Multifocal stenoses without occlusion. No occlusion or significant stenosis. No aneurysm. Right posterior cerebral artery: Severe stenosis of the proximal segment without a significant patent posterior communicating artery present. Multifocal more distal stenoses without occlusion. No occlusion or significant stenosis. No aneurysm. Right vertebral artery: Mild irregularity without occlusion. Left internal carotid artery: No Mild calcified plaque at the cavernous internal carotid artery with intact distal runoff. No aneurysm. Left anterior cerebral artery: Multifocal stenoses without occlusion. No occlusion or significant stenosis. No aneurysm. Left middle cerebral artery: Multifocal stenoses without occlusion. No occlusion or significant stenosis. No aneurysm. Left posterior cerebral artery: Multifocal stenoses without occlusion. No occlusion or significant stenosis. No aneurysm. Left vertebral artery: Unremarkable as visualized. Basilar artery: Unremarkable. No occlusion or significant stenosis. No aneurysm. IMPRESSION: No large vessel occlusion. Multifocal stenoses without occlusion involving the bilateral internal carotid arteries, bilateral middle and anterior cerebral arteries and bilateral posterior cerebral arteries. 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 High-grade stenoses of the proximal P1 segment of the right posterior cerebral artery and mid right anterior cerebral artery with intact distal runoff. Considerations include vasospasm or vasculitis as well as noncalcified plaque. Electronically signed by: Roney Ramirez M.D. 04/01/23 23:21 PM
--- NOTE | 2023-04-01 23:29 | CT Scan Report ---
Exam(s): CTA NECK With Contrast IV Amt: 116 ml optiray 320 EXAM: CT Angiography Neck With Intravenous Contrast CLINICAL HISTORY: Reason for exam: embolic appearing stroke. TECHNIQUE: Routine carotid CT angiography protocol was performed with intravenous contrast. NASCET criteria using the distal ICAs for comparison were used for evaluation of stenoses. CTDI is 22.84 mGy and DLP is 11.42 mGy-cm. Automated exposure control was utilized for the study. A dose lowering technique was utilized adhering to the principles of ALARA. 3D and MIP reconstructed images were created and reviewed. CONTRAST: Patient received 116 ml optiray 320 of IV contrast COMPARISON: CT cervical spine 03/29/2023. FINDINGS: VASCULATURE: Right common carotid artery: Unremarkable. No occlusion or significant stenosis. No dissection. Right internal carotid artery: Mild calcified plaque at the right carotid bulb without a hemodynamically significant stenosis. Tortuous. No dissection. Right external carotid artery: Unremarkable. No occlusion. Right vertebral artery: Unremarkable. No occlusion or significant stenosis. No dissection. Left common carotid artery: Unremarkable. No occlusion or significant stenosis. No dissection. Left internal carotid artery: Moderate proximately 50% diameter calcified plaque at the left carotid bulb without a hemodynamically significant stenosis. Tortuous. No dissection. Left external carotid artery: Unremarkable. No occlusion. Left vertebral artery: Unremarkable. No occlusion or significant stenosis. No dissection. NECK: Bones/joints: Degenerative changes of the spine. No acute fracture. Soft tissues: Unremarkable. Lung apices: Clear. CAROTID STENOSIS REFERENCE USING NASCET CRITERIA: % ICA stenosis = (1 - narrowest ICA diameter/diameter of distal cervical ICA) x 100. Mild - <50% stenosis. Moderate - 50-69% stenosis. Severe - 70-94% stenosis. Near occlusion - 95-99% stenosis. Occluded - 100% stenosis. IMPRESSION: Left greater than right calcified plaque at the bilateral carotid bulbs without a hemodynamically significant stenosis. Electronically signed by: Roney Ramirez M.D. 04/01/23 23:29 PM
[2023-04-02] MEDS: CEROVITE ADV FORMULA TAB PO SCH (08:42)
[2023-04-02] MEDS: HEPARIN SOD 5,000 UNIT/0.5 ML VIAL SQ SCH ×2 (08:42→19:43)
[2023-04-02] MEDS: CHOLECALCIFEROL 1,000 UNITS 25 MCG TAB PO SCH (08:42)
[2023-04-02] MEDS: ASPIRIN 81 MG ECTAB PO SCH (08:42)
--- NOTE | 2023-04-02 12:21 | Neurology Consultation ---
Date of Consultation April 02, 2023 Assessment & Plan (1) Stroke: Patient presents with bilateral [place] infarcts after being found down at home. Overall he is doing well today with excellent rehab potential. From a mechanism perspective this is either cardioembolic or related to hypoperfusion from the syncopal event as it is in borderzone territory. Patient plans to move in with his son in [place] after rehab. Would recommend he establish care locally and proceed with a patch monitor for arrhythmia after he relocates. In the meantime aspirin 81mg daily and lipitor 40mg daily is appropriate. I otherwise do not suspect he has vasculitis as stated in the CTA read but rather this is consistent with scattered athero given his risk factors and is appropriately treated by the antiplatelet and statin. -- Continue aspirin 81mg daily and lipitor 40mg daily -- Rehab candidate -- Recommend cardiac event monitor when care is established in [place] -- No restriction on airtravel from our perspective. -- Please contact us with any further questions. Telehealth Consultation Telehealth Information Telehealth Information: I performed this visit using a real-time telehealth connection between my location and the patients location ([facility]). After connecting through interactive tele-video, patient was identified by name and date of and/or wristband check.Patient (or authorized healthcare senior human resources representative) was informed that this was a telemedicine visit and it was being conducted confidentially over secure lines. My office door was closed and no one else was present in the room with me.Patient (or authorized healthcare senior human resources representative) provided consent to proceed with the visit, expressed an understanding of privacy and security of the telemedicine visit, and gave permission to have a hospital senior human resources representative in the room in order to assist with the visit and to conduct portions of the visit, as needed. I informed the patient (or authorized healthcare senior human resources representative) that I reviewed their record and presented the opportunity for them to ask any questions regarding the visit today. The patient agreed to participate. History of Present Illness Reason for Consultation: Stroke Requesting Physician: Dr. Kenny Attending Physician: Nate Kenny MD History of Present Illness Angel Everett is an 87 yo M presenting after an episode of syncope, found down for 2 days as he was unable to stand. His son, who is a nurse, is at bedside and reports that his memory was poor even prior to this event but since being in the hospital he has had worsening of his short term memory. The patient reports that his legs are still weak but he has been working with PT and is hopeful to go to rehab. Prior to this even he was living alone and was not taking any medications. He had never had a stroke in past. Denies any new weakness or numbness since admission. Allergies Allergy/AdvReac Type Severity Reaction Status Date / Time No Known Allergies Allergy Unverified 03/29/23 20:25 Home Medications Medication Instructions Recorded Confirmed Type aspirin 81 mg tablet,delayed 81 mg PO DAILY 03/29/23 03/29/23 History release cholecalciferol (vitamin D3) 25 25 mcg PO DAILY 03/29/23 03/29/23 History mcg (1,000 unit) capsule multivitamin with minerals 1 tab PO DAILY 03/29/23 03/29/23 History (Multiple Vitamin-Minerals tablet) amlodipine 5 mg tablet (Norvasc) 5 mg PO QPM #30 tabs 03/31/23 Rx Patient History Medical History CKD (chronic kidney disease), stage III Social History Smoking Status: Never smoker Hx Alcohol Use: No Hx Substance Use: No Preferred Language: Romanian Communication Ability: Effective Machine Washer Required: No Beliefs That Will Affect Care: None Current Living Situation: Alone Feels Safe at Home: Yes Assistive Devices: None Review of Systems +bilateral leg weakness Physical Exam Neurological Examination: Mental Status: Awake and alert. Oriented to person, place, and time. Fluent. Comprehension intact. Affect appropriate. Cranial Nerves: II: Reads NIHSS cards, pupils 3/3 to 2/2, morales grossly intact. III/IV/: Versions intact without nystagmus, no gaze preference. V: Facial sensation symmetric to light touch VII: Facial expression symmetric VIII: Hearing intact to voice IX/X: Palate elevates symmetrically XI: Shoulder shrug symmetric XII: Tongue midline Motor: Strength was symmetric and antigravity throughout. Pronator drift was absent. There were no abnormal movements.. Reflexes: Unable to assess over telemedicine Results & Data Vital Signs (Past 12 Hours) Vital Signs Temp Pulse Pulse Resp BP BP Pulse Ox 04/02/23 11:36 36.6 C 74 16 109/34 L 95 04/02/23 08:47 76 04/02/23 08:02 36.6 C 65 16 134/82 97 04/02/23 05:03 04/02/23 02:56 36.8 C 79 18 145/79 H 96 O2 Del Method 04/02/23 11:36 Room Air 04/02/23 08:47 04/02/23 08:02 Room Air 04/02/23 05:03 Room Air 04/02/23 02:56 Room Air Diagnostic Findings MRI brain - scattered foci of ischemia bilaterally CTA - Scattered atherosclerotic disease (1) Stroke CVA mechanism: embolism Precerebral and cerebral artery: middle cerebral artery Laterality of affected vessel: bilateral Qualified Code(s): 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
--- NOTE | 2023-04-02 12:57 | Hospitalist Progress Note ---
Date of Service April 02, 2023 Assessment & Plan (1) Syncope and collapse: Plan: CVA Fall and weakness at home two days ICER HAND Possible syncope? and generalized weakness Initially uncertain cause of syncope- neuro vs cardiac CT head and CT cervical spine are okay and chest x-ray okay MR brain obtained d/t ongoing gait issues and new report to son that patient had transient right arm weakness. Pt denies this Currently hemoglobin stable Orthostatics qshift are negative and will stop trending. Echocardiogram with preserved EF, subtle hypokinesis of the inferior posterior base with all wall segments kaleb normally. Grade I DD present and no significant valve disease. PT OT evaluations pending. Per cardiology, cont amlodipine for HTN. Outpatient event monitor recommended to assess for atrial or ventricular arrhythmias. Would recommend establishing with cardiology in [place] after he moves MRI brain - 1. Scattered subcentimeter [id number]-appearing infarcts within the cerebral hemispheres, most pronounced within the bilateral centrum semiovale and superior frontal lobe cortices with a few additional punctate foci noted within the left parieto-occipital distribution. 2. No acute or subacute territorial infarct, midline shift, abnormal extra-axial collection, hydrocephalus or intracranial mass. 3. Involutional changes with moderate chronic microvascular ischemic disease. - obtained CTA head and neck, consulted neurology. Start atorvastatin, cont ASA 81mg PO daily. Neurology consulted - Patient presents with bilateral borderzone territory infarcts after being found down at home. Overall he is doing well today with excellent rehab potential. From a mechanism perspective this is either cardioembolic or related to hypoperfusion from the syncopal event as it is in borderzone territory. Patient plans to move in with his son in [place] after rehab. Would recommend he establish care locally and proceed with a patch monitor for arrhythmia after he relocates. In the meantime aspirin 81mg daily and lipitor 40mg daily is appropriate. I otherwise do not suspect he has vasculitis as stated in the CTA read but rather this is consistent with scattered athero given his risk factors and is appropriately treated by the antiplatelet and statin. -- Continue aspirin 81mg daily and lipitor 40mg daily -- Rehab candidate -- Recommend cardiac event monitor when care is established in [place] -- No restriction on airtravel from our perspective. (2) Weakness: Plan: Patient is elderly with chronic comorbidities. CVA - as above. UA clear of infection, PT/OT ordered. Appears to be improved. He can independently sit up in bed for me and is able to stand up at bedside without much issue. plan to dc to rehab (3) Prolonged QT interval: Plan: Significant QTc around 700msresolved. Mg and K replaced to achieve 2 and 4, respectively. QTc resolved to normal on repeat EKG . (4) Elevated CK: Plan: 2/2 lying on the floor for a prolonged period of time. This is trending down. Continue gentle hydration. No further workup. (5) Elevated troponin: Plan: No chest pain or EKG changes consistent with ischemia, doubt ACS. Likely related to demand ischemia. No further workup inpatient. (6) CKD (chronic kidney disease), stage III: Plan: chronic, at baseline. (7) Memory deficit: Plan: Per initial admission records. Patient lives alone. He appears to be rather functional and is answering questions appropriately. He is oriented. Possibly with some MCI but would defer any formal diagnosis until he is better and back to baseline. Continue supportive care. Cont outpatient neuropsych testing. CVA - as above. Son interested in psych testing (for capacity) as he plans to take his father to [facility] to live with him. Pt also seems to be a hoarder. Psych consulted. DVT prophylaxis- Heparin subcu Disposition--Med/tele Full code Admission and Anticipated Discharge Date Admission Date: March 29, 2023 Subjective 87-year-old man who lives alone and ambulates independently reports walking in his room 2 days ago with a sudden loss of consciousness and remained weak and unable to get up for approximately 48 hours. Overall feels better No headache, fever, chills, chest pain, shortness of breath, abd. pain, n/v Son present at the bedside - discussed MRI brain findings, CTA head and neck and neurology consultation. Son also interested in psych eval for capacity and consult was placed. Discussed DC needs w/ CM. Review of Systems Review of Systems: All systems reviewed & are unremarkable except as noted in Subjective Physical Exam Physical Exam: CONSTITUTIONAL: obese elderly M in NAD EYES: pupils are round and equal bilaterally, normal conjunctivae, no scleral icterus ENT: external ear and nose normal, MMM NECK: supple RESPIRATORY: clear to auscultation bilaterally, no crackles, rales or wheezes, normal respiratory effort CARDIOVASCULAR: regular rate and rhythm, S1 and 2 heard without murmurs CHEST: inspection of chest normal GASTROINTESTINAL: soft, nontender,ND, no guarding MUSCULOSKELETAL: generalized weakness, head is normocephalic and atraumatic SKIN: warm and dry NEURO/PSYCH: awake and alert, cooperative, able to answer simple questions appropriately, speech fluent, moves extremities Results & Data Results & Data Vital Signs (Past 12 Hours) Vital Signs Temp Pulse Pulse Resp BP BP Pulse Ox 04/02/23 11:36 36.6 C 74 16 109/34 L 95 04/02/23 08:47 76 04/02/23 08:02 36.6 C 65 16 134/82 97 04/02/23 05:03 04/02/23 02:56 36.8 C 79 18 145/79 H 96 O2 Del Method 04/02/23 11:36 Room Air 04/02/23 08:47 04/02/23 08:02 Room Air 04/02/23 05:03 Room Air 04/02/23 02:56 Room Air Medications Administered Current Inpatient Medications Acetaminophen (Acetaminophen 325 Mg Tab) 650 mg PO Q4H PRN PRN Reason: Pain or Fever Stop: 04/28/23 22:41 Amlodipine Besylate (Amlodipine Besylate 5 Mg Tab) 5 mg PO QPM STANLEY Stop: 04/29/23 20:59 Last Admin: 04/01/23 21:01 Dose: 5 mg Aspirin (Aspirin 81 Mg Ectab) 81 mg PO DAILY STAN[facility] Stop: 04/29/23 08:59 Last Admin: 04/02/23 08:42 Dose: 81 mg Atorvastatin Calcium (Atorvastatin 40 Mg Tab) 40 mg PO HS STANLEY Stop: 05/01/23 20:59 Last Admin: 04/01/23 21:01 Dose: 40 mg Cyanocobalamin (Cyanocobalamin (B-12) 500 Mcg Tablet) 500 mcg PO QAM [facility] Stop: 05/02/23 12:59 Last Admin: 04/02/23 14:25 Dose: 500 mcg Heparin Sodium (Porcine) (Heparin Sod 5,000 Unit/0.5 Ml Vial) 5,000 units SQ Q12 [facility] Stop: 04/28/23 22:41 Last Admin: 04/02/23 08:42 Dose: 5,000 units Multivitamins/Minerals (Cerovite Adv Formula Tab) 1 tab PO DAILY STANLEY Stop: 04/29/23 08:59 Last Admin: 04/02/23 08:42 Dose: 1 tab Nitroglycerin (Nitroglycerin Sl 0.4 Mg/Tab Tab) 0.4 mg SL Q5M PRN PRN Reason: Chest Pain Stop: 04/28/23 22:41 Polyethylene Glycol (Polyethylene (Miralax) 17 Gm Pack) 17 gm PO DAILY PRN PRN Reason: Constipation Stop: 04/28/23 22:41 Vitamin D (Cholecalciferol 1,000 Units 25 Mcg Tab) 1,000 units PO DAILY STANLEY Stop: 04/29/23 08:59 Last Admin: 04/02/23 08:42 Dose: 1,000 units (6) CKD (chronic kidney disease), stage III Chronic kidney disease stage 3 subtype: unspecified whether 3a or 3b Qualified Code(s): N18.30 - Chronic kidney disease, stage 3 unspecified
[2023-04-02] MEDS: CYANOCOBALAMIN (B-12) 500 MCG TABLET PO SCH (14:25)
--- NOTE | 2023-04-02 15:40 | Psychiatric Consultation ---
Date of Consultation April 02, 2023 Impression / Recommendations Impression 87 y/o man found on the floor after 2 days and now with recent bilateral borderzone territory infarcts but surprisingly few known previous medical problems. There are suggestions he's been a bit of a hoarder but no other evident psychiatric history. He's seen regarding the questions of his capacity to make medical decisions and his capacity to execute a durable power of tax attorney for healthcare. Mr. Everett is certainly pretty fuzzy on details for both recent and remote events, provides a suspect chronology that appears likely to be compressing events from longer time spans into shorter reported spans, and is somewhat repetitive. However, as far as I can tell he has the broad strokes right. He can explain why he's in the hospital, that he needs rehab to get strength back, and that he can't manage living alone any longer. He says he looks forward to moving in with his son in [place]. He recognizes there could well be times when he'd be incapable of making medical decisions and very clearly would want his son to do so on his behalf. In my opinion he does currently have the capacity to make medical decisions, but because he has difficulty reliably retaining details he will need to be provided all pertinent details, and the understanding on which he bases decisions will need to be confirmed, before we accept his decisions as informed. This is likely to fluctuate over time, and it's possible he may not have this capacity for much longer. Making a forensic assessment of pt's financial and full testamentary capacity is beyond the scope of what can be accomplished in the acute hospital setting. However, in my opinion he does have the capacity to make a living will or advance directive and does have the capacity to execute a durable power of tax attorney for healthcare based on his ability to articulate a reasonable basic understanding of the purpose of such instruments and under what circumstances they might be needed. He may not have such capacity for much longer, and by the time such instruments are needed it's too late for the patient to execute them, so I've told him that in my opinion every adult should have these and that he should consider doing them now. Overall I spent a total of 84 minutes on the floor for this consultation assessment including review of chart records, review of test results, direct evaluation of the patient [id number], counseling the patient, risk assessment, discussion with the psychiatric liaison nurse, and documentation in the electronic health record. (1) Encounter for assessment of healthcare decision-making capacity: CPT Code * pt currently has the capacity to make medical decisions but will need to be provided all pertinent information and his understanding checked before consent can be considered informed * pt currently has the capacity to make a living will, advance directive, or durable power of tax attorney for healthcare. I've told him he should consider doing these now. Psych History Identifying Data TONY EVERETT is a 87-year-old m with a history of hyperlipidemia and CKD, admitted on for 03/29/2024. Consult is by the hospitalist service for "capacity - son requires". Chief Complaint "I was on the floor for 2 days". History of Present Illness 87 y/o man with a history of hyperlipidemia and CKD who was found on the floor of his home after not having been in communication with friends or family for 2 days. A welfare check was called and he was found on the floor of what's reported to have been a home crowded with objects in some degree of disarray. Pt tells me (as he's consistently told others) that he doesn't recall the circumstances of the fall. "One minute I was working on stuff in the bedroom, and the next I was on the floor!" He says he was unable to get up because his arms were too weak, and he didn't have a phone available. Pt has now been found to have apparently recent bilateral borderzone territory infarcts. It's not possible to be certain whether this predated the fall, nor is etiology clear. The neurology process improvement consultant thought it was likely "either cardioembolic or related to hypoperfusion from the syncopal event". 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 He says he's "been doing fine" and has been "pretty healthy". He denies any medical problems and says he was prescribed no medications prior to admission. He says the current plan is for him to transition "to rehab for a while, maybe a week to 10 days" then move to [place] to live with his son, who's an EMT and soft metals hand engraver, and his , who's "some sort of nurse". He thinks he's likely to be discharged from the acute medical unit in "a day or so". Pt says he has never made a living will or durable power of tax attorney for [facility], but says he thinks he probably should because it seems increasingly likely there could be times when he "wouldn't be able to make decisions about things". He's emphatic that the person he would want to make decisions on his behalf would be his son, because "he knows about medical stuff" and because he trusts him. On my exam, pt is alert, pleasant, and cheerful. He is oriented to his name, [facility] in [facility], and the day, date, month, and year. He exhibits a small degree of word-finding difficulty but is fairly fluent overall. He is somewhat repetitive (e.g., says he was on the floor for 2 days at least 5 times). I have some doubts about his memory. 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 He denies any medical problems or medications despite diagnoses of hyperlipidemia and CKD and apparently have a prescription for amlodipine. However, he does not seem to have had a large number of significant medical problems or used many medications. Allergies Allergy/AdvReac Type Severity Reaction Status Date / Time No Known Allergies Allergy Unverified 03/29/23 20:25 Home Medications Medication Instructions Recorded Confirmed Type aspirin 81 mg tablet,delayed 81 mg PO DAILY 03/29/23 03/29/23 History release cholecalciferol (vitamin D3) 25 25 mcg PO DAILY 03/29/23 03/29/23 History mcg (1,000 unit) capsule multivitamin with minerals 1 tab PO DAILY 03/29/23 03/29/23 History (Multiple Vitamin-Minerals tablet) amlodipine 5 mg tablet (Norvasc) 5 mg PO QPM #30 tabs 03/31/23 Rx Patient History Medical History CKD (chronic kidney disease), stage III Social History Smoking Status: Never smoker Hx Alcohol Use: No Hx Substance Use: No Preferred Language: Romanian Communication Ability: Effective Manager Development Required: No Beliefs That Will Affect Care: None Current Living Situation: Alone Feels Safe at Home: Yes Assistive Devices: None Physical Exam Psychiatric: Orientation: alert, oriented to person, oriented to place, oriented to time and cooperative Apperance: appropriately dressed and approp riately groomed (with somewhat magnificent bushy eyebrows) Eye Contact: good eye contact Motor Behavior: no abnormal motor movements Speech: normal rate/rhythm/volume of speech Affect: euthymic affect Mood: no depressed mood and no anxious mood Thought Process: + circumstantial thought process and + tangential thought process Thought Content: reality based without delusions Suicidal Thoughts: denies suicidal thoughts and denies suicidal plan Homicidal Thoughts: denies homicidal thoughts Hallucinations: no auditory hallucinations and no visual hallucinations Cognition: attention grossly intact; + recent memory not intact (vague recall of recent events), + remote memory not intact (seems vague about chronology and details) and + language not intact (some word-finding difficulty) Estimated Intelligence: average estimated intelligence Insight: + fair insight Judgment: + fair judgement Vital Signs (Past 24 Hours): Last Vital Signs Temp 36.6 C 04/02/23 11:36 Pulse 74 04/02/23 11:36 Resp 16 04/02/23 11:36 BP 109/34 L 04/02/23 11:36 Pulse Ox 95 04/02/23 11:36 O2 Del Method Room Air 04/02/23 11:36 Review of Systems Psychiatric: no depression, no anhedonia, no change in appetite, no anxiety, no paranoia and no hallucinations Results & Data (PSY) Medications Administered Amlodipine Besylate (Amlodipine Besylate 5 Mg Tab) 5 mg PO QPM [facility] Stop: 04/29/23 20:59 Last Admin: 04/01/23 21:01 Dose: 5 mg Documented By: Admin: 03/31/23 20:50 Dose: 5 mg Documented By: Admin: 03/30/23 20:26 Dose: 5 mg Documented By: YOLI Aspirin (Aspirin 81 Mg Ectab) 81 mg PO DAILY STANLEY Stop: 04/29/23 08:59 Last Admin: 04/02/23 08:42 Dose: 81 mg Documented By: Admin: 04/01/23 08:53 Dose: 81 mg Documented By: Admin: 03/31/23 08:40 Dose: 81 mg Documented By: Admin: 03/30/23 08:24 Dose: 81 mg Documented By: ROSALVA Atorvastatin Calcium (Atorvastatin 40 Mg Tab) 40 mg PO HS STANLEY Stop: 05/01/23 20:59 Last Admin: 04/01/23 21:01 Dose: 40 mg Documented By: YOLI Cyanocobalamin (Cyanocobalamin (B-12) 500 Mcg Tablet) 500 mcg PO QAM ST[facility]LEY Stop: 05/02/23 12:59 Last Admin: 04/02/23 14:25 Dose: 500 mcg Documented By: LICO Heparin Sodium (Porcine) (Heparin Sod 5,000 Unit/0.5 Ml Vial) 5,000 units SQ Q12 STANLEY Stop: 04/28/23 22:41 Last Admin: 04/02/23 08:42 Dose: 5,000 units Documented By: Admin: 04/01/23 21:01 Dose: 5,000 units Documented By: Admin: 04/01/23 08:53 Dose: 5,000 units Documented By: Admin: 03/31/23 20:50 Dose: 5,000 units Documented By: Admin: 03/31/23 08:40 Dose: 5,000 units Documented By: Admin: 03/30/23 20:26 Dose: 5,000 units Documented By: Admin: 03/30/23 14:34 Dose: 5,000 units Documented By: Admin: 03/30/23 00:03 Dose: 5,000 units Documented By: TORRES Multivitamins/Minerals (Cerovite Adv Formula Tab) 1 tab PO DAILY STANLEY Stop: 04/29/23 08:59 Last Admin: 04/02/23 08:42 Dose: 1 tab Documented By: Admin: 04/01/23 08:53 Dose: 1 tab Documented By: Admin: 03/31/23 08:40 Dose: 1 tab Documented By: Admin: 03/30/23 08:24 Dose: 1 tab Documented By: ROSALVA Vitamin D (Cholecalciferol 1,000 Units 25 Mcg Tab) 1,000 units PO DAILY STANLEY Stop: 04/29/23 08:59 Last Admin: 04/02/23 08:42 Dose: 1,000 units Documented By: Admin: 04/01/23 08:53 Dose: 1,000 units Documented By: Admin: 03/31/23 08:40 Dose: 1,000 units Documented By: Admin: 03/30/23 08:24 Dose: 1,000 units Documented By: ROSALVA Coding Level of Care Code 36[address] [facility] Intl Hosp Care Lvl 3 Diagnoses Encounter for assessment of healthcare decision-making capacity Z02.79 Time Spent (min) 84
[2023-04-02] MEDS: ATORVASTATIN 40 MG TAB PO SCH (19:42)
[2023-04-02] MEDS: amLODIPine BESYLATE 5 MG TAB PO SCH (19:42)
[2023-04-03] MEDS: CYANOCOBALAMIN (B-12) 500 MCG TABLET PO SCH (08:16)
[2023-04-03] MEDS: HEPARIN SOD 5,000 UNIT/0.5 ML VIAL SQ SCH (08:16)
[2023-04-03] MEDS: CHOLECALCIFEROL 1,000 UNITS 25 MCG TAB PO SCH (08:16)
[2023-04-03] MEDS: ASPIRIN 81 MG ECTAB PO SCH (08:17)
[2023-04-03] MEDS: CEROVITE ADV FORMULA TAB PO SCH (08:17)
--- NOTE | 2023-04-03 09:57 | Discharge Summary ---
Date of Service April 03, 2023 Admission HPI Per Admitting Provider 87-year-old male with past med history significant for hyperlipidemia, chronic kidney stage III presents with fall. Patient apparently fell couple of days ago and laid on the floor for the last 2 days. Patient states he passed out did not know why. And after he woke up he found himself on the floor and could not get up. States that he fell up on his abdomen and he has some abdominal discomfort. Denies any head pain. No back pain. No chest pain. No cough. No fevers. No runny nose or sore throat. Vision is okay. Says normal bowel and bladder movements. Son lives in [place] and is coming tomorrow. Past medical history. As mentioned above Past surgical history. Removal of ruptured appendix. Inguinal hernia repair. Social history. Lives alone. No smoking. Alcohol 3 drinks per month. No drug use. Family history. No family history on file Admission Exam Per Admitting Provider General- Not in distress Head- atraumatic Eyes- EOMI ENT- oropharynx clear Neck- supple, no JVD. Lungs- clear to auscultation no wheezing or crackles Heart- regular rhythm; no murmur, no gallop. Abdomen- normal bowel sounds, soft, nontender, no distension Extremities- no pretibial edema, no erythema seen Neuro- alert, oriented x 3; EOMI; no facial palsy; no dysarthria; Obeys simple commands moves extremities Skin- warm & dry Principal Diagnosis CVA syncope prolonged QTc on EKG, improved Uncontrolled high blood pressure Discharge Exam CONSTITUTIONAL: obese elderly M in NAD EYES: pupils are round and equal bilaterally, normal conjunctivae, no scleral icterus ENT: external ear and nose normal, MMM NECK: supple RESPIRATORY: clear to auscultation bilaterally, no crackles, rales or wheezes, normal respiratory effort CARDIOVASCULAR: regular rate and rhythm, S1 and 2 heard without murmurs CHEST: inspection of chest normal GASTROINTESTINAL: soft, nontender,ND, no guarding MUSCULOSKELETAL: generalized weakness, head is normocephalic and atraumatic SKIN: warm and dry NEURO/PSYCH: awake and alert, cooperative, able to answer simple questions appropriately, speech fluent, moves extremities Discharge Data Allergies Allergy/AdvReac Type Severity Reaction Status Date / Time No Known Allergies Allergy Unverified 12/30/23 20:25 Consultations 03/29/23 19:40 ED Decision to Admit Stat 03/30/23 08:00 Consult Cardiology Routine 04/01/23 16:57 Consult Neurology Routine 04/02/23 13:39 Consult Psychiatry Routine Ordered Studies 03/29/23 17:15 CT cervical spine wo con Stat FINDINGS: Multilevel changes. No acute fracture, subluxation or suspicious bone lesion. The cervical soft tissues appear unremarkable. The visualized lung apices appear clear. IMPRESSION: No acute fracture or subluxation. CT head/brain wo con Stat FINDINGS: No acute intracranial hemorrhage, midline shift, intracranial mass, hydrocephalus, territorial ischemia or abnormal extra-axial collection. Involutional changes with white matter hypodensities suggestive of chronic microvascular ischemic disease. The calvarium is intact. Mastoid air cells are clear. Toat-rf-sxzaxqhd mucosal thickening of the paranasal sinuses appears chronic. IMPRESSION: No acute intracranial abnormality or calvarial fracture. 04/01/23 00:11 MR brain wo con Routine FINDINGS: Scattered subcentimeter foci of restricted diffusion is noted within the centrum semiovale of the bilateral frontoparietal lobes and also within the superior frontal lobe cortices. There are additional subcentimeter foci noted within the left parieto-occipital distribution. These foci demonstrate intermediate signal on the ADC map. No acute intracranial hemorrhage, midline shift, intracranial mass, hydrocephalus, acute territorial infarct or abnormal extra-axial collection. Involutional changes with moderate white matter T2/FLAIR hyperintense foci suggestive of chronic microvascular ischemic disease. Midline structures are unremarkable and degenerative changes of the cervical spine. Pa rtially empty sella. The calvarium is intact. Mastoid air cells are clear. Cxmp-fx-bhwjkrnu mucosal thickening of the paranasal sinuses appears chronic. Cerebral venous sinuses and major arterial flow voids appear patent. IMPRESSION: 1. Scattered subcentimeter btkon-ip-[id number]-appearing infarcts within the cerebral hemispheres, most pronounced within the bilateral centrum semiovale and superior frontal lobe cortices with a few additional punctate foci noted within the left parieto-occipital distribution. 2. No acute or subacute territorial infarct, midline shift, abnormal extra-axial collection, hydrocephalus or intracranial mass. 3. Involutional changes with moderate chronic microvascular ischemic disease. 04/01/23 16:57 CTA head wo/w [CT angio head wo/w] Routine FINDINGS: Right internal carotid artery: Mild calcified plaque at the cavernous internal carotid artery with intact distal runoff. 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 3 mm aneurysmal dilatation of the at the level of the origin of the posterior communicating artery which is otherwise not identified. Right anterior cerebral artery: Severe stenosis of proximal A2 segment with intact distal runoff. Multifocal additional stenoses without occlusion. No occlusion or significant stenosis. No aneurysm. Right middle cerebral artery: Multifocal stenoses without occlusion. No occlusion or significant stenosis. No aneurysm. Right posterior cerebral artery: Severe stenosis of the proximal segment without a significant patent posterior communicating artery present. Multifocal more distal stenoses without occlusion. No occlusion or significant stenosis. No aneurysm. Right vertebral artery: Mild irregularity without occlusion. Left internal carotid artery: No Mild calcified plaque at the cavernous internal carotid artery with intact distal runoff. No aneurysm. Left anterior cerebral artery: Multifocal stenoses without occlusion. No occlusion or significant stenosis. No aneurysm. Left middle cerebral artery: Multifocal stenoses without occlusion. No occlusion or significant stenosis. No aneurysm. Left posterior cerebral artery: Multifocal stenoses without occlusion. No occlusion or significant stenosis. No aneurysm. Left vertebral artery: Unremarkable as visualized. Basilar artery: Unremarkable. No occlusion or significant stenosis. No aneurysm. IMPRESSION: No large vessel occlusion. Multifocal stenoses without occlusion involving the bilateral internal carotid arteries, bilateral middle and anterior cerebral arteries and bilateral posterior cerebral arteries. 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 High-grade stenoses of the proximal P1 segment of the right posterior cerebral artery and mid right anterior cerebral artery with intact distal runoff. Considerations include vasospasm or vasculitis as well as noncalcified plaque. CTA neck with con [CT angio neck with con] Routine FINDINGS: VASCULATURE: Right common carotid artery: Unremarkable. No occlusion or significant stenosis. No dissection. Right internal carotid artery: Mild calcified plaque at the right carotid bulb without a hemodynamically significant stenosis. Tortuous. No dissection. Right external carotid artery: Unremarkable. No occlusion. Right vertebral artery: Unremarkable. No occlusion or significant stenosis. No dissection. Left common carotid artery: Unremarkable. No occlusion or significant stenosis. No dissection. Left internal carotid artery: Moderate proximately 50% diameter calcified plaque at the left carotid bulb without a hemodynamically significant stenosis. Tortuous. No dissection. Left external carotid artery: Unremarkable. No occlusion. Left vertebral artery: Unremarkable. No occlusion or significant stenosis. No dissection. NECK: Bones/joints: Degenerative changes of the spine. No acute fracture. Soft tissues: Unremarkable. Lung apices: Clear. CAROTID STENOSIS REFERENCE USING NASCET CRITERIA: % ICA stenosis = (1 - narrowest ICA diameter/diameter of distal cervical ICA) x 100. Mild - <50% stenosis. Moderate - 50-69% stenosis. Severe - 70-94% stenosis. Near occlusion - 95-99% stenosis. Occluded - 100% stenosis. IMPRESSION: Left greater than right calcified plaque at the bilateral carotid bulbs without a hemodynamically significant stenosis. Hospital Course (1) Syncope and collapse: CVA Fall and weakness at home two days INDUSTRI[employer]AB[employer] Possible syncope? and generalized weakness Initially uncertain cause of syncope- neuro vs cardiac CT head and CT cervical spine are okay and chest x-ray okay MR brain obtained d/t ongoing gait issues and new report to son that patient had transient right arm weakness. Pt denies this Currently hemoglobin stable Orthostatics qshift are negative and will stop trending. Echocardiogram with preserved EF, subtle hypokinesis of the inferior posterior base with all wall segments kaleb normally. Grade I DD present and no significant valve disease. PT OT evaluations pending. Per cardiology, cont amlodipine for HTN. Outpatient event monitor recommended to assess for atrial or ventricular arrhythmias. Would recommend establishing with cardiology in [place] after he moves MRI brain - 1. Scattered subcentimeter yhlbk-pu-lricujrb-appearing infarcts within the cerebral hemispheres, most pronounced within the bilateral centrum semiovale and superior frontal lobe cortices with a few additional punctate foci noted within the left parieto-occipital distribution. 2. No acute or subacute territorial infarct, midline shift, abnormal extra-axial collection, hydrocephalus or intracranial mass. 3. Involutional changes with moderate chronic microvascular ischemic disease. - obtained CTA head and neck, consulted neurology. Start atorvastatin, cont ASA 81mg PO daily. Neurology consulted - Patient presents with bilateral borderzone territory infarcts after being found down at home. Overall he is doing well today with excellent rehab potential. From a mechanism perspective this is either cardioembolic or related to hypoperfusion from the syncopal event as it is in borderzone territory. Patient plans to move in with his son in [place] after rehab. Would recommend he establish care locally and proceed with a patch monitor for arrhythmia after he relocates. In the meantime aspirin 81mg daily and lipitor 40mg daily is appropriate. I otherwise do not suspect he has vasculitis as stated in the CTA read but rather this is consistent with scattered athero given his risk factors and is appropriately treated by the antiplatelet and statin. -- Continue aspirin 81mg daily and lipitor 40mg daily -- Rehab candidate -- Recommend cardiac event monitor when care is established in [place] -- No restriction on airtravel from our perspective. (2) Weakness: Patient is elderly with chronic comorbidities. CVA - as above. UA clear of infection, PT/OT ordered. Appears to be improved. He can independently sit up in bed for me and is able to stand up at bedside without much issue. plan to dc to rehab (3) Prolonged QT interval: Significant QTc around 700msresolved. Mg and K replaced to achieve 2 and 4, respectively. QTc resolved to normal on repeat EKG . (4) Elevated CK: 2/2 lying on the floor for a prolonged period of time. This is trending down. Received gentle hydration. (5) Elevated troponin: No chest pain or EKG changes consistent with ischemia, doubt ACS. Likely related to demand ischemia. No further workup inpatient. (6) CKD (chronic kidney disease), stage III: chronic, at baseline. (7) Memory deficit: Per initial admission records. Patient lives alone. He appears to be rather functional and is answering questions appropriately. He is oriented. Possibly with some MCI but would defer any formal diagnosis until he is better and back to baseline. Continue supportive care. Cont outpatient neuropsych testing. CVA - as above. Son interested in psych testing (for capacity) as he plans to take his father to [facility] to live with him. Pt also seems to be a hoarder. Psych consulted. Per psychiatry - Patient recognizes there could well be times when he'd be incapable of making medical decisions and very clearly would want his son to do so on his behalf. In my opinion he does currently have the capacity to make medical decisions, but because he has difficulty reliably retaining details he will need to be provided all pertinent details, and the understanding on which he bases decisions will need to be confirmed, before we accept his decisions as informed. This is likely to fluctuate over time, and it's possible he may not have this capacity for much longer. * pt currently has the capacity to make medical decisions but will need to be provided all pertinent information and his understanding checked before consent can be considered informed * pt currently has the capacity to make a living will, advance directive, or durable power of grain trader for healthcare. I've told him he should consider doing these now. Total Time Total Time Spent Total Time Spent (In Minutes): 40 Discharge Plan Discharge Items Patient Disposition: Home - Self-Care Reason For Visit: FALL, CYNCOPE Discharge Diagnosis: CVA syncope prolonged QTc on EKG, improved Uncontrolled high blood pressure Condition on Discharge: Fair Activity: Resume your previous activity Non-emergency contact: Primary Care Provider, Physiotherapist'S Assistant and Neurologist Call non-emergency contact if: you have any medication questions, your symptoms worsen and your pain is not controlled Follow-up/Referrals: Michi Navarrete MD [Primary Care Provider] - Diet: Heart Healthy Addtl Attending Provider Instructions: Follow up with primary care physician, neurologist and hat trimmer. Take aspirin 81 mg and lipitor 40 mg daily. You were also started on medication - amlodipine - to control your blood pressure. Take it daily and if you can, monitor your blood pressure at home. It is recommended that you wear a heart monitor / zio patch after your discharge to evaluate for abnormal heart rhythm. It was a pleasure taking care of you! Please call if you have any questions or problems. You can reach a [facility] hospitalist on duty at [facility] 24 hours a day by calling [phone]. Pending Studies at Discharge: No Stand-Alone Forms: My [facility] Medications and DC Order Prescriptions: New amlodipine [Norvasc] 5 mg Tablet 5 mg PO QPM Qty: 30 0RF atorvastatin 40 mg Tablet 40 mg PO HS Qty: 30 0RF Continued aspirin [Aspir-81] 81 mg Tablet,Delayed Release (Dr/Ec) 81 mg PO DAILY Rx Instructions: take with food Multiple Vitamin-Minerals Tablet 1 tab PO DAILY cholecalciferol (vitamin D3) 25 mcg (1,000 unit) Capsule 25 mcg PO DAILY Discharge Orders: Discharge Order (Routine); Ordered 04/03/23 Ordered By: Nate Kenny Admission Data Admit Date/Time: 03/29/23 20:58 Attending Provider: Nate Kenny Admit Provider: Zafar Mendosa Primary Care Provider: Michi Navarrete Other Providers: [facility]; Zafar Mendosa; Wanda Christine; Kenny Mooney; Nader Maldonado; Ru Robles; Roney Mullins; Michi Villatoro; Irene Leach; Kiah Hale; Wanda Willams; Bardy Rand; Jorje Everett; Tika Scruggs; Angely Dumont; Ramon Mckeon; Gato Russell; Audi Chris; Debi Orozco; Maira Villegas; Dominique Holder; Farhan Mcgregor; Michi Hanna
== END 2023-04-03 15:40 | DRG 65 ==
LOC: ED 16:50 → EDINP 20:58 → SUATTDRO 20:58 → 2N 03-30 16:16

== ENCOUNTER 2023-04-04 13:39 | Inpatient (IN) ==
[2023-04-04] MEDS ORDERED: SODIUM CHLORIDE 0.9% 1,000 ML IV ONE (14:14)
[2023-04-04] MEDS ORDERED: OPTIRAY 320 125ml IV ONE (14:17)
[2023-04-04 14:20] LABS: Basophils # (auto) 0.05 K/uL (0.00-0.20); Basophils % (auto) 0.6 %; Eosinophils # (auto) 0.05 K/uL (0.00-0.50); Eosinophils % (auto) 0.6 %; Hematocrit (blood only) 45.8 % (42.0-52.0); Hemoglobin 16.7 g/dl (14.0-18.0); Immature Granulocytes # (auto) 0.03 K/uL (0.01-0.20); Immature Granulocytes % (auto) 0.3 %; Lymphocytes # (auto) 1.47 K/uL (1.20-3.40); Lymphocytes % (auto) 16.4 %; Mean Corpuscular Hemoglobin 30.6 pg (25.0-34.0); Mean Corpuscular Hgb Conc 36.5 g/dL (32.0-36.0); Mean Corpuscular Volume 83.9 fL (80.0-100.0); Mean Platelet Volume 8.3 fL (9.4-12.4); Monocytes # (auto) 0.96 K/uL (0.11-0.59); Monocytes % (auto) 10.7 %; Neutrophils # (auto) 6.41 K/uL (1.40-6.50); Neutrophils % (auto) 71.4 %; Platelet Count 277 K/uL (130-400); RDW Coefficient of Variation 13.9 % (11.5-14.5); RDW Standard Deviation 41.8 fL (36.4-46.3); Red Blood Count 5.46 M/uL (4.70-6.10); White Blood Count 8.97 K/ul (4.8-10.8)
[2023-04-04 14:25] LABS: iSTAT Creatinine 1.1 mg/dl (0.6-1.3); iSTAT Hemoglobin 16.3 g/dl (14.0-18.0); iSTAT Ionized Calcium 1.03 mmol/l (1.12-1.32)
[2023-04-04 14:36] LABS: Partial Thromboplastin Time 29 Seconds (21-31); Prothrombin Time 10.9 Seconds (9.0-12.0)
--- NOTE | 2023-04-04 14:38 | CT Scan Report ---
CT head/brain wo con CLINICAL HISTORY: 87 years-old Male with neuro deficit, acute stroke suspected. Acute stroke like sy mptoms TECHNIQUE: Multiple axial CT images of the head were obtained without contrast. A dose lowering tech nique was utilized adhering to the principles of ALARA. CT DOSE: 2045.17 mGy.cm COMPARISON: CTA head and neck of same day, and also April 01, 2023 brain MRI April 01, 2023. FINDINGS: Motion degraded exam. No acute intracranial hemorrhage, midline shift, intracranial mass, hydrocephal us, or abnormal extra-axial collection. Involutional changes with chronic microvascular ischemic dise ase. The tiny infarcts described on prior brain MRI are not well visualized by CT technique. Ill-defi rehan area of decreased attenuation within the left parietal lobe on image 24 series 2. The calvarium is intact. The paranasal sinuses, mastoid air cells, and middle ear cavities are clear . IMPRESSION: 1. Motion degraded exam. 2. The subcentimeter lacunar infarcts described on the brain MRI from April 01, 2023 are not well vi sualized by CT. 3. Ill-defined area of decreased attenuation within the superior left parietal lobe near the vertex i s favored to be artifactual. A subtle acute developing ischemic infarct could appear similarly. 4. No acute intracranial hemorrhage or midline shift. ACT 112: Negative or not required by law. The above report was generated using voice recognition software. It may contain grammatical, syntax o r spelling errors. Electronically signed by: Miguel Mansfield M.D. 04/04/2023 2:37 PM
[2023-04-04 14:44] LABS: Albumin Globulin Ratio 1.3 (0.9-2); Albumin Level 4.2 gm/dl (3.4-5.0); Bilirubin,Total 1.3 mg/dl (0.2-1.0); Calcium 9.5 mg/dl (8.6-10.3); Est GFR (African American) 73.3 ml/min; Est GFR (Non-African American) 63.2 ml/min; Globulin 3.2 gm/dl (2.5-4.0); Magnesium 2.2 mg/dl (1.7-2.4); Potassium 4.1 mmol/L (3.5-5.1); Total Protein 7.4 gm/dl (6.0-8.3)
--- NOTE | 2023-04-04 14:47 | CT Scan Report ---
CT angio neck with con CLINICAL HISTORY: 87 years-old Male with neuro deficit, acute stroke suspected. Acute strokelike s ymptoms COMPARISON STUDY: April 01, 2023 TECHNIQUE: Following the IV administration of 114 mL of Optiray, CT angiogram of the neck was perform ed from the aortic arch to the skull base. Images are reviewed in the axial, sagittal, and coronal pl anes. 3-D MIPS images are created and assessed. IV contrast was administered without complication. Al l measurements were calculated based on NASCET criteria. A dose lowering technique was utilized adhe ring to the principles of ALARA. FINDINGS: Three-vessel morphology of the thoracic regard. Mild atherosclerotic plaque of the right carotid bulb results in less than 50% stenosis. The common carotid arteries are widely patent. Atherosclerotic pl aque of the left carotid bulb and proximal left ICA results in approximately 50% stenosis. Slight gustavo que at the origin of the left vertebral artery causes mild stenosis. The bilateral vertebral arteries are otherwise patent. The basilar artery is patent. No pneumothorax. Prominence of the mediastinal fat. Unremarkable soft tissues. Chronic mucoperiosteal left maxillary sinus thickening. Degenerative changes of the cervical spine. IMPRESSION: 1. Atherosclerosis results in approximately 50% stenosis of the proximal cervical segment left ICA. 2. Otherwise unremarkable CTA of the neck. ACT 112: Negative or not required by law. The above report was generated using voice recognition software. It may contain grammatical, syntax o r spelling errors. Electronically signed by: Miguel Mansfield M.D. 04/04/2023 2:46 PM
[2023-04-04 14:49] LABS: Troponin I High Sensitivity 6.6 pg/ml (0-20)
--- NOTE | 2023-04-04 14:54 | Emergency Department Note ---
Impression & Plan Acute CVA (cerebrovascular accident), Aphasia, Ki-neglect of right side, Hypertension ED Provider Note NAME: TONY BRIGGS AGE: 87 SEX: M ARRIVES VIA: Ambulance INFORMANT: Patient ED PROVIDER(S): Jaime Guidry MD CHIEF COMPLAINT: Stroke symptoms, Referred. PLAN: Disposition: Admit MEDICAL DECISION MAKING: The patient is an 87-year-old gentleman with past medical severity of hypertension, hyperlipidemia and recent admission to this facility from 03/29- 04/03, 4 symptoms of generalized weakness in the setting of being found down for estimated 48 hours subsequently diagnosed with multiple territorial CVA discharged on discharged [facility] to [facility] presents to the emergency department via EMS for concern for acute onset of new neurologic symptoms around 1230 today where the patient began to have garbled speech and appeared to have right-sided neglect unable to follow commands. The patient's son who arrived at bedside who flew in from [place] after his recent admission describes that the patient did have an acute change from when he even arrived to have lunch with his father around noon. The patient did have some agitation last night and did receive Ativan but this was last night only and he received no additional medications this morning. On my evaluation the patient is no distress, afebrile with blood pressure 120/90s improved from 180s/100s per EMS evaluation and vital signs otherwise stable. Patient appears clinically dry. Patient has notable expressive aphasia and when asked his name will simply say water. In fact he will reply water to any question. He appears to have right-sided neglect with mild right upper and right lower extremity weakness though he will move this independently but will not follow commands to obtain better assessment. Due to the patient's acute change in his neurologic status a stroke alert was activated though he was not considered to be a TNK candidate due to his recent CVA. However endovascular therapy could be considered if large vessel occlusion is seen. CT of the head and CTA of the head and neck were obtained and were unchanged from recent admission and there was no large vessel occlusion that would require endovascular therapy. CT of the head did suggest artifact versus possible early developing left parietal stroke. This region would correlate with the patient's symptoms. However given the patient is not a TNK candidate and no endovascular targets amenable for treatment no acute treatments are indicated at this time. Thus, telestroke video assessment deferred and stroke alert discontinued. I did update the patient's son at the bedside and agrees with plan for admission for further assessment. Case was discussed with [facility] who will evaluate the patient for admission. Per admitting team request, case also reviewed with neurology on-call, Dr. Chris, who is familiar with the patient from his recent admission and consultation. Agrees that there is no additional treatments are indicated at this time. An MRI may characterize better suspected stroke which may suggest embolic etiology however the patient has not had any detectable atrial fibrillation and empiric anticoagulation would not be indicated. Additionally no role for short-term dual antiplatelet therapy. Admitting team was updated. Further management per admitting team. Triage Nursing notes reviewed and agree them. Prior/external medical records reviewed Vital Signs: reviewed Differential diagnosis: Infection, dehydration, metabolic abnormality, hypo/hyperglycemia, electrolyte disturbance, anemia, hypoxia, cardiac sources, intracerebral event, toxicologic, neurologic, as well as other pathologies. ER treatment provided: See below. Diagnostics interpreted by me: ECG: Sinus rhythm with first-degree AV block, PACs, 90 bpm, no overt ST ovation or depression, QTc 464, QRS 80. Cardiac Monitoring: An order for continuous cardiac monitoring was placed and demonstrated Sinus rhythm with first-degree AV block, PACs, 90 bpm. Laboratory studies: See below Imaging studies: See below Consultation(s): April GRA[facility]AM [facility] HPI: The patient is an 87-year-old gentleman with past medical severity of hypertension, hyperlipidemia and recent admission to this facility from 03/29- 04/03, 4 symptoms of generalized weakness in the setting of being found down for estimated 48 hours subsequently diagnosed with multiple territorial CVA discharged on discharged yesterday to [facility] presents emergency department via EMS for concern for acute onset of new neurologic symptoms around 1230 today where the patient began to have garbled speech and appeared to have right-sided neglect unable to follow commands. The patient's son who arrived at bedside who flew in from [place] after his recent admission describes that the patient did have an acute change from when he even arrived to have lunch with his father around noon. The patient did have some agitation last night and did receive Ativan but this was last night only and he received no additional medications this morning. ROS: See above HPI for pertinent positives & negatives. A total of 10 systems reviewed and were otherwise negative. VITALS:See Below PHYSICAL EXAMINATION: GENERAL: Awake, alert, fatigued-appearing, in no distress HENT: Normocephalic, atraumatic. Oropharynx with dry mucous membranes and otherwise unremarkable. EYES: Normal conjunctiva. Sclera non-icteric. EOMI. No nystamgus. PEARRL. NECK: Supple. No nuchal rigidity. FROM. No JVD. RESPIRATORY: Clear to auscultation. CARDIAC: Tachycardic rate, normal rhythm. Extremities warm and well perfused. Pulses equal. ABDOMEN: Soft, non-distended. No tenderness to palpation. No rebound or guarding. No masses. RECTAL: Deferred. MUSCULOSKELETAL: Chest examination reveals no tenderness. The back is symmetrical on inspection without obvious abnormality. There is no CVA tenderness to palpation. No joint edema. LOWER EXTREMITIES: Calves are equal size bilaterally and non-tender. No edema. No discoloration. NEURO: Notable expressive aphasia and when asked his name will simply say water. In fact he will reply water to any question. He appears to have right-sided neglect with mild right upper and right lower extremity weakness SKIN: No rash or jaundice noted. Jaime Guidry MD Past Med/Surg History Medical History Encounter for assessment of healthcare decision-making capacity Memory deficit CKD (chronic kidney disease), stage III Social History Smoking Status: Never smoker Hx Alcohol Use: No Hx Substance Use: No Preferred Language: Bulgarian Communication Ability: Effective Casework Manager Required: No Beliefs That Will Affect Care: None Current Living Situation: Alone Feels Safe at Home: Yes Assistive Devices: None Allergies Allergies Allergy/AdvReac Type Severity Reaction Status Date / Time No Known Allergies Allergy Unverified 03/29/23 20:25 Home Meds Home Medications Medication Instructions Recorded Confirmed aspirin 81 mg tablet,delayed 81 mg PO DAILY 03/29/23 04/04/23 release cholecalciferol (vitamin D3) 25 25 mcg PO DAILY 03/29/23 04/04/23 mcg (1,000 unit) capsule multivitamin with minerals 1 tab PO DAILY 03/29/23 04/04/23 (Multiple Vitamin-Minerals tablet) Previous Rx's Medication Instructions Recorded amlodipine 5 mg tablet (Norvasc) 5 mg PO QPM #30 tabs 03/31/23 atorvastatin 40 mg tablet 40 mg PO HS #30 tabs 04/03/23 Results & Data (ED) Vital Signs Vital Signs - 24 hr 04/04/23 13:44 04/04/23 13:54 04/04/23 14:04 Temperature 36.5 C Temperature Source Oral Pulse Rate 101 H 106 H Pulse Rate [Apical] Pulse Rate from SpO2 Sensor Respiratory Rate 27 H Respiratory Effort / Characteristics Non-Labored Spontaneous Respiratory Depth Normal Blood Pressure 125/98 Blood Pressure [Left Arm] Blood Pressure [Right Arm] Blood Pressure Mean 107 Blood Pressure Mean [Left Arm] Blood Pressure Mean [Right Arm] Pulse Oximetry 96 Oxygen Delivery Method Room Air Room Air Sepsis Recent Fever Within 48 Hours No Sepsis New/Unexplained Change in Mental Status No Sepsis Action Taken by Nursing Physician Notified 04/04/23 14:51 04/04/23 15:51 04/04/23 16:00 Temperature Temperature Source Pulse Rate 105 H Pulse Rate [Apical] 96 H 107 H Pulse Rate from SpO2 Sensor Respiratory Rate 18 19 23 Respiratory Effort / Characteristics Non-Labored Respiratory Depth Normal Blood Pressure 177/121 H Blood Pressure [Left Arm] 190/122 H Blood Pressure [Right Arm] 186/132 H Blood Pressure Mean 139 Blood Pressure Mean [Left Arm] 144 Blood Pressure Mean [Right Arm] 150 Pulse Oximetry 95 95 95 Oxygen Delivery Method Room Air Room Air Room Air Sepsis Recent Fever Within 48 Hours Sepsis New/Unexplained Change in Mental Status Sepsis Action Taken by Nursing 04/04/23 17:01 04/04/23 17:30 04/04/23 17:50 Temperature Temperature Source Pulse Rate 105 H 96 H 107 H Pulse Rate [Apical] Pulse Rate from SpO2 Sensor 88 Respiratory Rate 21 50 H 22 Respiratory Effort / Characteristics Respiratory Depth Blood Pressure 159/103 H 174/107 H Blood Pressure [Left Arm] Blood Pressure [Right Arm] Blood Pressure Mean 121 129 Blood Pressure Mean [Left Arm] Blood Pressure Mean [Right Arm] Pulse Oximetry 93 94 95 Oxygen Delivery Method Room Air Room Air Sepsis Recent Fever Within 48 Hours Sepsis New/Unexplained Change in Mental Status Sepsis Action Taken by Nursing 04/04/23 17:59 04/04/23 18:00 04/04/23 18:00 Temperature Temperature Source Pulse Rate 109 H 100 H Pulse Rate [Apical] Pulse Rate from SpO2 Sensor 91 H Respiratory Rate 18 Respiratory Effort / Characteristics Respiratory Depth Blood Pressure 174/120 H 174/120 H Blood Pressure [Left Arm] Blood Pressure [Right Arm] Blood Pressure Mean 142 138 Blood Pressure Mean [Left Arm] Blood Pressure Mean [Right Arm] Pulse Oximetry 94 Oxygen Delivery Method Sepsis Recent Fever Within 48 Hours Sepsis New/Unexplained Change in Mental Status Sepsis Action Taken by Nursing 04/04/23 18:10 Temperature Temperature Source Pulse Rate 109 H Pulse Rate [Apical] Pulse Rate from SpO2 Sensor 100 H Respiratory Rate 24 Respiratory Effort / Characteristics Respiratory Depth Blood Pressure Blood Pressure [Left Arm] Blood Pressure [Right Arm] Blood Pressure Mean Blood Pressure Mean [Left Arm] Blood Pressure Mean [Right Arm] Pulse Oximetry 95 Oxygen Delivery Method Sepsis Recent Fever Within 48 Hours Sepsis New/Unexplained Change in Mental Status Sepsis Action Taken by Nursing Laboratory Data Attestation: I reviewed the patient's lab results. 04/04/23 14:11 04/04/23 14:11 Lab Results 04/04/23 04/04/23 04/04/23 Range/Units 14:00 14:11 14:12 WBC 8.97 (4.8-10.8) K/ul RBC 5.46 (4.70-6.10) M/uL Hgb 16.7 (14.0-18.0) g/dl POC Hgb 16.3 (14.0-18.0) g/dl Hct 45.8 (42.0-52.0) % POC Hct 48 (42-52) % MCV 83.9 (80.0-100.0) fL MCH 30.6 (25.0-34.0) pg MCHC 36.5 H (32.0-36.0) g/dL RDW Std Deviation 41.8 (36.4-46.3) fL RDW Coeff of Dorothy 13.9 (11.5-14.5) % Plt Count 277 (130-400) K/uL MPV 8.3 L (9.4-12.4) fL Immature Gran % (Auto) 0.3 % Neut % (Auto) 71.4 % Lymph % (Auto) 16.4 % [place] % (Auto) 10.7 % Eos % (Auto) 0.6 % Baso % (Auto) 0.6 % Neut # (Auto) 6.41 (1.40-6.50) K/uL Lymph # (Auto) 1.47 (1.20-3.40) K/uL [place] # (Auto) 0.96 H (0.11-0.59) K/uL Eos # (Auto) 0.05 (0.00-0.50) K/uL Baso # (Auto) 0.05 (0.00-0.20) K/uL Immature Gran # (Auto) 0.03 (0.01-0.20) K/uL PT 10.9 (9.0-12.0) Seconds INR 1.0 (0.9-1.1) APTT 29 (21-31) Seconds PTT Ratio 1.0 POC Sodium 137 (135-144) mmol/L Sodium 136 (136-145) mmol/L POC Potassium 5.0 (3.3-5.0) mmol/L Potassium 4.1 (3.5-5.1) mmol/L POC Chloride 103 (101-112) mmol/L Chloride 104 (98-107) mmol/L Carbon Dioxide 21 (21-32) mmol/L POC Total CO2 23 L (24-31) mmol/L Anion Gap 11 (3-11) POC Anion Gap 17.0 (16-25) mmol/L POC BUN 22 H (7-18) mg/dl BUN 18 (6-23) mg/dl Creatinine 1.06 (0.6-1.4) mg/dl POC Creatinine 1.1 (0.6-1.3) mg/dl Est Cr Clr Drug Dosing 49.0 ml/min Est GFR ( Amer) 73.3 ml/min Est GFR (Non-Af Amer) 63.2 ml/min BUN/Creatinine Ratio 17.0 (10-20) Glucose 102 H (70-99(Fasting)) mg/dl POC Glucose 118 H (70-99) mg/dl POC Glucose (other) 106 H (70-99) mg/dl Calcium 9.5 (8.6-10.3) mg/dl POC Ioniz Calcium Heidi 1.03 L (1.12-1.32) mmol/l Magnesium 2.2 (1.7-2.4) mg/dl Total Bilirubin 1.3 H (0.2-1.0) mg/dl AST 33 (13-39) U/L ALT 32 (7-52) U/L Alkaline Phosphatase 88 (34-104) U/L Troponin I High Sens 6.6 (0-20) pg/ml Total Protein 7.4 (6.0-8.3) gm/dl Albumin 4.2 (3.4-5.0) gm/dl Globulin 3.2 (2.5-4.0) gm/dl Albumin/Globulin Ratio 1.3 (0.9-2) SARS-CoV-2, RNA, NAAT (NEGATIVE) 04/04/23 Range/Units 14:41 WBC (4.8-10.8) K/ul RBC (4.70-6.10) M/uL Hgb (14.0-18.0) g/dl POC Hgb (14.0-18.0) g/dl Hct (42.0-52.0) % POC Hct (42-52) % MCV (80.0-100.0) fL MCH (25.0-34.0) pg MCHC (32.0-36.0) g/dL RDW Std Deviation (36.4-46.3) fL RDW Coeff of Dorothy (11.5-14.5) % Plt Count (130-400) K/uL MPV (9.4-12.4) fL Immature Gran % (Auto) % Neut % (Auto) % Lymph % (Auto) % [place] % (Auto) % Eos % (Auto) % Baso % (Auto) % Neut # (Auto) (1.40-6.50) K/uL Lymph # (Auto) (1.20-3.40) K/uL [place] # (Auto) (0.11-0.59) K/uL Eos # (Auto) (0.00-0.50) K/uL Baso # (Auto) (0.00-0.20) K/uL Immature Gran # (Auto) (0.01-0.20) K/uL PT (9.0-12.0) Seconds INR (0.9-1.1) APTT (21-31) Seconds PTT Ratio POC Sodium (135-144) mmol/L Sodium (136-145) mmol/L POC Potassium (3.3-5.0) mmol/L Potassium (3.5-5.1) mmol/L POC Chloride (101-112) mmol/L Chloride (98-107) mmol/L Carbon Dioxide (21-32) mmol/L POC Total CO2 (24-31) mmol/L Anion Gap (3-11) POC Anion Gap (16-25) mmol/L POC BUN (7-18) mg/dl BUN (6-23) mg/dl Creatinine (0.6-1.4) mg/dl POC Creatinine (0.6-1.3) mg/dl Est Cr Clr Drug Dosing ml/min Est GFR ( Amer) ml/min Est GFR (Non-Af Amer) ml/min BUN/Creatinine Ratio (10-20) Glucose (70-99(Fasting)) mg/dl POC Glucose (70-99) mg/dl POC Glucose (other) (70-99) mg/dl Calcium (8.6-10.3) mg/dl POC Ioniz Calcium Heidi (1.12-1.32) mmol/l Magnesium (1.7-2.4) mg/dl Total Bilirubin (0.2-1.0) mg/dl AST (13-39) U/L ALT (7-52) U/L Alkaline Phosphatase (34-104) U/L Troponin I High Sens (0-20) pg/ml Total Protein (6.0-8.3) gm/dl Albumin (3.4-5.0) gm/dl Globulin (2.5-4.0) gm/dl Albumin/Globulin Ratio (0.9-2) SARS-CoV-2, RNA, NAAT NEGATIVE (NEGATIVE) Administered Medications Discontinued Medications Sodium Chloride (Nss) 1,000 mls @ 999 mls/hr IV .Q1H1M ONE Stop: 04/04/23 15:14 Last Infusion: 04/04/23 18:17 Dose: Infused Documented By: Admin: 04/04/23 14:18 Dose: 999 mls/hr Documented By: Ioversol (Optiray 320 125ml) 114 ml IV ONCE ONE Stop: 04/04/23 14:18 Last Admin: 04/04/23 14:23 Dose: 114 ml Documented By: JAMES Imaging Data Radiologist's Impression: Chest X-Ray 04/04/23 13:54 XR chest 1V portable HISTORY: 87 years-old Male neuro deficit, acute stroke suspected acute strokelike symptoms COMPARISON: 03/29/2023 TECHNIQUE: AP view of the chest FINDINGS: Cardiac silhouette is enlarged. Moderate right hemidiaphragmatic elevation. No pneumothorax, pleural effusion or overt pulmonary edema. Probable mild bibasilar atelectasis. Degenerative changes of the shoulders and spine. Limited exam secondary to positioning. IMPRESSION: Cardiomegaly without acute process. ACT 112: Negative or not required by law. The above report was generated using voice recognition software. It may contain grammatical, syntax or spelling errors. Electronically signed by: Miguel Mansfield M.D. 04/04/2023 4:[address] 04/04/23 13:54 CT head/brain wo con CLINICAL HISTORY: 87 years-old Male with neuro deficit, acute stroke suspected. Acute stroke like symptoms TECHNIQUE: Multiple axial CT images of the head were obtained without contrast. A dose lowering technique was utilized adhering to the principles of ALARA. CT DOSE: 2045.17 mGy.cm COMPARISON: CTA head and neck of same day, and also April 01, 2023 brain MRI April 01, 2023. FINDINGS: Motion degraded exam. No acute intracranial hemorrhage, midline shift, intracranial mass, hydrocephalus, or abnormal extra-axial collection. Involutional changes with chronic microvascular ischemic disease. The tiny infarcts described on prior brain MRI are not well visualized by CT technique. Ill-defined area of decreased attenuation within the left parietal lobe on image 24 series 2. The calvarium is intact. The paranasal sinuses, mastoid air cells, and middle ear cavities are clear. IMPRESSION: 1. Motion degraded exam. 2. The subcentimeter lacunar infarcts described on the brain MRI from April 01, 2023 are not well visualized by CT. 3. Ill-defined area of decreased attenuation within the superior left parietal lobe near the vertex is favored to be artifactual. A subtle acute developing ischemic infarct could appear similarly. 4. No acute intracranial hemorrhage or midline shift. ACT 112: Negative or not required by law. The above report was generated using voice recognition software. It may contain grammatical, syntax or spelling errors. Electronically signed by: Miguel Mansfield M.D. 04/04/2023 2:37 PM Head CTA 04/04/23 13:54 HEAD CTA HISTORY: Confusion. neuro deficit, acute stroke suspected TECHNIQUE: Multiaxial CT images of the head were performed both before and after the intravenous administration of contrast to evaluate the major cerebral vessels. 3D/MIP images were also obtained. Sagittal and coronal reformats were reviewed. A dose lowering technique was utilized adhering to the principles of ALARA. COMPARISON: Head CTA 04/01/2023. FINDINGS: The major dural venous sinuses are not well opacified but likely patent. 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 Focal high-grade stenosis within the supraclinoid segment of the right ICA on image 121, unchanged. There is poststenotic fusiform aneurysmal dilatation of the right supraclinoid ICA measuring 6 mm in diameter. There is an additional 3 mm saccular aneurysm extending posteriorly from the right supraclinoid ICA. The distal bilateral vertebral arteries and proximal to mid basilar artery are widely patent. There is mild narrowing of the distal basilar artery. High-grade stenosis within the proximal bilateral histologist. Additional areas of mild to moderate multifocal stenoses within the mid to distal bilateral histologist. Multifocal moderate to severe stenosis within the right A1 segment and multifocal mild stenosis within the left A1 segment, unchanged. Multifocal areas of high-grade stenosis with possible short segments of occlusion involving the bilateral mid to distal ACAs, unchanged. Multifocal areas of mild to moderate stenosis within the bilateral MCAs. No evidence for occlusion of the bilateral MCAs. IMPRESSION: 1. No evidence for an acute occlusion within the [place]. 2. Multifocal areas of stenosis seen throughout the major cerebral arteries as described above which is similar to the prior study. This raises the possibility of underlying vasculitis. 3. 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 This remains unchanged. 4. Additional findings as described above. ACT 112: Negative or not required by law. Electronically signed by: Seb Boateng M.D. 04/04/2023 3:00 PM Neck CTA 04/04/23 13:54 CT angio neck with con CLINICAL HISTORY: 87 years-old Male with neuro deficit, acute stroke suspected. Acute strokelike symptoms COMPARISON STUDY: April 01, 2023 TECHNIQUE: Following the IV administration of 114 mL of Optiray, CT angiogram of the neck was performed from the aortic arch to the skull base. Images are reviewed in the axial, sagittal, and coronal planes. 3-D MIPS images are created and assessed. IV contrast was administered without complication. All measurements were calculated based on NASCET criteria. A dose lowering technique was utilized adhering to the principles of ALARA. FINDINGS: Three-vessel morphology of the thoracic regard. Mild atherosclerotic plaque of the right carotid bulb results in less than 50% stenosis. The common carotid arteries are widely patent. Atherosclerotic plaque of the left carotid bulb and proximal left ICA results in approximately 50% stenosis. Slight plaque at the origin of the left vertebral artery causes mild stenosis. The bilateral vertebral arteries are otherwise patent. The basilar artery is patent. No pneumothorax. Prominence of the mediastinal fat. Unremarkable soft tissues. Chronic mucoperiosteal left maxillary sinus thickening. Degenerative changes of the cervical spine. IMPRESSION: 1. Atherosclerosis results in approximately 50% stenosis of the proximal cervical segment left ICA. 2. Otherwise unremarkable CTA of the neck. ACT 112: Negative or not required by law. The above report was generated using voice recognition software. It may contain grammatical, syntax or spelling errors. Electronically signed by: Miguel Mansfield M.D. 04/04/2023 2:46 PM Discharge Plan Visit Data Chief Complaint: Altered Mental Status ED Provider: Jaime Guidry Discharge Problem: Acute CVA (cerebrovascular accident), Aphasia, Ki-neglect of right side, Hypertension Forms Stand Alone Forms: [employer] Prescriptions Prescriptions: No Action aspirin 81 mg Tablet,Delayed Release (Dr/Ec) 81 mg PO DAILY Rx Instructions: take with food Multiple Vitamin-Minerals Tablet 1 tab PO DAILY cholecalciferol (vitamin D3) 25 mcg (1,000 unit) Capsule 25 mcg PO DAILY amlodipine [Norvasc] 5 mg Tablet 5 mg PO QPM Qty: 30 0RF atorvastatin 40 mg Tablet 40 mg PO HS Qty: 30 0RF Referrals Referrals: Michi Navarrete MD [Primary Care Provider] - Discharge Problem: Hypertension Qualifiers: Hypertension type: unspecified Qualified Code(s): I10 - Essential (primary) hypertension
--- NOTE | 2023-04-04 15:01 | CT Scan Report ---
HEAD CTA HISTORY: Confusion. neuro deficit, acute stroke suspected TECHNIQUE: Multiaxial CT images of the head were performed both before and after the intravenous admi nistration of contrast to evaluate the major cerebral vessels. 3D/MIP images were also obtained. Sag ittal and coronal reformats were reviewed. A dose lowering technique was utilized adhering to the [place]. COMPARISON: Head CTA 04/01/2023. FINDINGS: The major dural venous sinuses are not well opacified but likely patent. Mild fusiform aneu rysmal dilatation of the cavernous segment of the left internal carotid artery measuring up to 6 mm i n diameter. Focal high-grade stenosis within the supraclinoid segment of the right ICA on image 121, unchanged. There is poststenotic fusiform aneurysmal dilatation of the right supraclinoid ICA measuri ng 6 mm in diameter. There is an additional 3 mm saccular aneurysm extending posteriorly from the rig ht supraclinoid ICA. The distal bilateral vertebral arteries and proximal to mid basilar artery are w idely patent. There is mild narrowing of the distal basilar artery. High-grade stenosis within the pr oximal bilateral flag car driver. Additional areas of mild to moderate multifocal stenoses within the mid to dis unique bilateral flag car driver. Multifocal moderate to severe stenosis within the right A1 segment and multifocal mild stenosis within the left A1 segment, unchanged. Multifocal areas of high-grade stenosis with po ssible short segments of occlusion involving the bilateral mid to distal ACAs, unchanged. Multifocal areas of mild to moderate stenosis within the bilateral MCAs. No evidence for occlusion of the bilate ral MCAs. IMPRESSION: 1. No evidence for an acute occlusion within the [place]. 2. Multifocal areas of stenosis seen throughout the major cerebral arteries as described above which is similar to the prior study. This raises the possibility of underlying vasculitis. 3. 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 This remains unchanged. 4. Additional findings as described above. ACT 112: Negative or not required by law. Electronically signed by: Seb Boateng M.D. 04/04/2023 3:00 PM
--- NOTE | 2023-04-04 15:39 | Electrocardiogram Report ---
Test Reason : Blood Pressure : / mmHG Vent. Rate : 098 BPM Atrial Rate : 098 BPM P-R Int : 224 ms QRS Dur : 080 ms QT Int : 364 ms P-R-T Axes : 046 045 046 degrees QTc Int : 464 ms Sinus rhythm with 1st degree A-V block with Premature atrial complexes Low voltage QRS Borderline ECG When compared with ECG of 31-MAR-2023 05:14, Premature atrial complexes are now Present Confirmed by Mino Ge ([id number]) on 04/04/2023 3:39:23 PM Referred By: Michi Navarrete Confirmed By:Mino Ge
--- NOTE | 2023-04-04 16:26 | XRay Report ---
XR chest 1V portable HISTORY: 87 years-old Male neuro deficit, acute stroke suspected acute strokelike symptoms COMPARISON: 03/29/2023 TECHNIQUE: AP view of the chest FINDINGS: Cardiac silhouette is enlarged. Moderate right hemidiaphragmatic elevation. No pneumothorax, pleural effusion or overt pulmonary edema. Probable mild bibasilar atelectasis. Degenerative changes of the s houlders and spine. Limited exam secondary to positioning. IMPRESSION: Cardiomegaly without acute process. ACT 112: Negative or not required by law. The above report was generated using voice recognition software. It may contain grammatical, syntax o r spelling errors. Electronically signed by: Miguel Mansfield M.D. 04/04/2023 4:25 PM
[2023-04-04] MEDS ORDERED: PHARMACIST DISCHARGE MED REC CONSULT PRN (19:22)
[2023-04-04] MEDS ORDERED: LABETALOL HCL IV 5 MG/ML 20ML IV STA (19:33)
--- NOTE | 2023-04-04 19:42 | History & Physical Report ---
Date of Service April 04, 2023 Assessment & Plan (1) Acute CVA (cerebrovascular accident): (2) Aphasia: Plan: Admit to telemetry Patient presenting from [facility] for evaluation of garbled speech and altered mental status. Recently admitted to [facility] 03/29 through 04/03 for acute CVA and patient was discharged to [facility] for rehab. Case discussed with neurology Dr. Chris via tigertext Repeat brain MRI Continue ASA (will give rectally until able to take p.o.), no indication for DAPT or permissive hypertension at this time Resume statin once taking p.o. Cardiology consult due to concerns of cardioembolic CVA (3) Hypertension: Plan: BP elevated, unable to give amlodipine due to n.p.o. Labetalol PRN DVT PROPHYLAXIS SCDs for now Patient seen in collaboration with Dr. Orozco. I spent a total of 75 minutes coordinating, documenting, and providing care for this patient excluding time spent in the performance of separately billed services. This included personally reviewing all current laboratories and imaging studies, medication reconciliation, outpatient chart review, and discussion with specialists. (4) CKD (chronic kidney disease), stage III: (5) Acute metabolic encephalopathy: Admission and Anticipated Discharge Date Admission Date: April 04, 2023 History of Present Illness Chief Complaint: Speech difficulty, AMS Primary Care Provider: Michi Navarrete MD 87-year-old male with PMH HTN, HLD, CKD stage III, CVA, and other problems listed below who presents to the ED from [facility] for evaluation of speech difficulty and altered mental status. History unobtainable from the patient. History obtained from son who is at the bedside and review of recent inpatient records. Patient recently admitted to [facility] 03/29 through 04/03 for CVA. Patient was discharged to [facility] for rehab. Son states that this morning, therapy had reported that patient was generally weak and required much difficulty getting out of bed. When patient left the hospital yesterday, he was ambulating with a walker. Son reports that when he was visiting around 12:00, the patient's speech became very garbled and patient was not following commands. EMS was called and patient was brought to the ED for further evaluation. Head CT suggest left parietal developing subacute CVA. Patient was given IVF. Allergies Allergy/AdvReac Type Severity Reaction Status Date / Time No Known Allergies Allergy Unverified 03/29/23 20:25 Home Medications Medication Instructions Recorded Confirmed Type aspirin 81 mg tablet,delayed 81 mg PO DAILY 03/29/23 04/04/23 History release cholecalciferol (vitamin D3) 25 25 mcg PO DAILY 03/29/23 04/04/23 History mcg (1,000 unit) capsule multivitamin with minerals 1 tab PO DAILY 03/29/23 04/04/23 History (Multiple Vitamin-Minerals tablet) amlodipine 5 mg tablet (Norvasc) 5 mg PO QPM #30 tabs 03/31/23 04/04/23 Rx atorvastatin 40 mg tablet 40 mg PO HS #30 tabs 04/03/23 04/04/23 Rx Past Med/Surg History Medical History HLD (hyperlipidemia) CVA (cerebral vascular accident) CKD (chronic kidney disease), stage III Social History Smoking Status: Never smoker Hx Alcohol Use: No Hx Substance Use: No Preferred Language: Swedish Communication Ability: Effective Prick Stitcher Required: No Beliefs That Will Affect Care: None Current Living Situation: Alone Feels Safe at Home: Yes Assistive Devices: None Physical Exam Constitutional: WD/WN, vitals as above Eyes: PERRL, conjunctivae normal, anicteric sclerae ENMT: Ears: no external ear abnormality Nose: no external nose abnormality Mouth: + dry oral mucous membranes Respiratory: normal respiratory effort, lungs clear to auscultation Cardiovascular: Rate/Rhythm: regular rhythm and + tachycardic Vessels: normal peripheral pulses Extremities: no edema Gastrointestinal (Abdomen): normal bowel sounds, soft, nontender, no hepatosplenomegaly Skin: no rashes, warm and dry Neurologic: Patient moves all extremities however without purpose and does not follow commands, speech is garbled, intermittent left-sided gaze Psychiatric: Orientation: alert; + not oriented x 3 Results & Data Results & Data Vital Signs (Past 12 Hours) Vital Signs Temp Pulse Pulse Resp BP BP BP 04/04/23 18:32 110 H 24 197/119 H 04/04/23 18:10 109 H 24 04/04/23 18:00 100 H 18 174/120 H 04/04/23 18:00 174/120 H 04/04/23 17:59 109 H 04/04/23 17:50 107 H 22 04/04/23 17:30 96 H 50 H 174/107 H 04/04/23 17:01 105 H 21 159/103 H 04/04/23 16:00 105 H 23 177/121 H 04/04/23 15:51 107 H 19 190/122 H 04/04/23 14:51 96 H 18 186/132 H 04/04/23 14:04 106 H 04/04/23 13:54 04/04/23 13:44 36.5 C 101 H 27 H 125/98 Pulse Ox O2 Del Method 04/04/23 18:32 94 Room Air 04/04/23 18:10 95 04/04/23 18:00 94 04/04/23 18:00 04/04/23 17:59 04/04/23 17:50 95 04/04/23 17:30 94 Room Air 04/04/23 17:01 93 Room Air 04/04/23 16:00 95 Room Air 04/04/23 15:51 95 Room Air 04/04/23 14:51 95 Room Air 04/04/23 14:04 04/04/23 13:54 Room Air 04/04/23 13:44 96 Room Air Laboratory Results Short CBC 04/04/23 Range/Units 14:11 WBC 8.97 (4.8-10.8) K/ul Hgb 16.7 (14.0-18.0) g/dl Hct 45.8 (42.0-52.0) % Plt Count 277 (130-400) K/uL BMP 04/04/23 14:11 Sodium 136 Potassium 4.1 Chloride 104 Carbon Dioxide 21 BUN 18 Creatinine 1.06 Glucose 102 H Calcium 9.5 Liver Function 04/04/23 Range/Units 14:11 Total Bilirubin 1.3 H (0.2-1.0) mg/dl AST 33 (13-39) U/L ALT 32 (7-52) U/L Alkaline Phosphatase 88 (34-104) U/L Albumin 4.2 (3.4-5.0) gm/dl Diagnostic Findings Chest X-Ray 04/04/23 13:54 XR chest 1V portable HISTORY: 87 years-old Male neuro deficit, acute stroke suspected acute strokelike symptoms COMPARISON: 03/29/2023 TECHNIQUE: AP view of the chest FINDINGS: Cardiac silhouette is enlarged. Moderate right hemidiaphragmatic elevation. No pneumothorax, pleural effusion or overt pulmonary edema. Probable mild bibasilar atelectasis. Degenerative changes of the shoulders and spine. Limited exam secondary to positioning. IMPRESSION: Cardiomegaly without acute process. ACT 112: Negative or not required by law. The above report was generated using voice recognition software. It may contain grammatical, syntax or spelling errors. Electronically signed by: Miguel Mansfield M.D. 04/04/2023 4:[address] 04/04/23 13:54 CT head/brain wo con CLINICAL HISTORY: 87 years-old Male with neuro deficit, acute stroke suspected. Acute stroke like symptoms TECHNIQUE: Multiple axial CT images of the head were obtained without contrast. A dose lowering technique was utilized adhering to the principles of ALARA. CT DOSE: 2045.17 mGy.cm COMPARISON: CTA head and neck of same day, and also April 01, 2023 brain MRI April 01, 2023. FINDINGS: Motion degraded exam. No acute intracranial hemorrhage, midline shift, intracranial mass, hydrocephalus, or abnormal extra-axial collection. Involutional changes with chronic microvascular ischemic disease. The tiny infarcts described on prior brain MRI are not well visualized by CT technique. Ill-defined area of decreased attenuation within the left parietal lobe on image 24 series 2. The calvarium is intact. The paranasal sinuses, mastoid air cells, and middle ear cavities are clear. IMPRESSION: 1. Motion degraded exam. 2. The subcentimeter lacunar infarcts described on the brain MRI from April 01, 2023 are not well visualized by CT. 3. Ill-defined area of decreased attenuation within the superior left parietal lobe near the vertex is favored to be artifactual. A subtle acute developing ischemic infarct could appear similarly. 4. No acute intracranial hemorrhage or midline shift. ACT 112: Negative or not required by law. The above report was generated using voice recognition software. It may contain grammatical, syntax or spelling errors. Electronically signed by: Miguel Mansfield M.D. 04/04/2023 2:37 PM Head CTA 04/04/23 13:54 HEAD CTA HISTORY: Confusion. neuro deficit, acute stroke suspected TECHNIQUE: Multiaxial CT images of the head were performed both before and after the intravenous administration of contrast to evaluate the major cerebral vessels. 3D/MIP images were also obtained. Sagittal and coronal reformats were reviewed. A dose lowering technique was utilized adhering to the principles of ALARA. COMPARISON: Head CTA 04/01/2023. FINDINGS: The major dural venous sinuses are not well opacified but likely patent. 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 Focal high-grade stenosis within the supraclinoid segment of the right ICA on image 121, unchanged. There is poststenotic fusiform aneurysmal dilatation of the right supraclinoid ICA measuring 6 mm in diameter. There is an additional 3 mm saccular aneurysm extending posteriorly from the right supraclinoid ICA. The distal bilateral vertebral arteries and proximal to mid basilar artery are widely patent. There is mild narrowing of the distal basilar artery. High-grade stenosis within the proximal bilateral type soldering machine tender. Additional areas of mild to moderate multifocal stenoses within the mid to distal bilateral type soldering machine tender. Multifocal moderate to severe stenosis within the right A1 segment and multifocal mild stenosis within the left A1 segment, unchanged. Multifocal areas of high-grade stenosis with possible short segments of occlusion involving the bilateral mid to distal ACAs, unchanged. Multifocal areas of mild to moderate stenosis within the bilateral MCAs. No evidence for occlusion of the bilateral MCAs. IMPRESSION: 1. No evidence for an acute occlusion within the viejas of [place]. 2. Multifocal areas of stenosis seen throughout the major cerebral arteries as described above which is similar to the prior study. This raises the possibility of underlying vasculitis. 3. 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 This remains unchanged. 4. Additional findings as described above. ACT 112: Negative or not required by law. Electronically signed by: Seb Boateng M.D. 04/04/2023 3:00 PM Neck CTA 04/04/23 13:54 CT angio neck with con CLINICAL HISTORY: 87 years-old Male with neuro deficit, acute stroke suspected. Acute strokelike symptoms COMPARISON STUDY: April 01, 2023 TECHNIQUE: Following the IV administration of 114 mL of Optiray, CT angiogram of the neck was performed from the aortic arch to the skull base. Images are reviewed in the axial, sagittal, and coronal planes. 3-D MIPS images are created and assessed. IV contrast was administered without complication. All measurements were calculated based on NASCET criteria. A dose lowering technique was utilized adhering to the principles of ALARA. FINDINGS: Three-vessel morphology of the thoracic regard. Mild atherosclerotic plaque of the right carotid bulb results in less than 50% stenosis. The common carotid arteries are widely patent. Atherosclerotic plaque of the left carotid bulb and proximal left ICA results in approximately 50% stenosis. Slight plaque at the origin of the left vertebral artery causes mild stenosis. The bilateral vertebral arteries are otherwise patent. The basilar artery is patent. No pneumothorax. Prominence of the mediastinal fat. Unremarkable soft tissues. Chronic mucoperiosteal left maxillary sinus thickening. Degenerative changes of the cervical spine. IMPRESSION: 1. Atherosclerosis results in approximately 50% stenosis of the proximal cervical segment left ICA. 2. Otherwise unremarkable CTA of the neck. ACT 112: Negative or not required by law. The above report was generated using voice recognition software. It may contain grammatical, syntax or spelling errors. Electronically signed by: Miguel Mansfield M.D. 04/04/2023 2:46 PM Code Status & VTE Plan VTE Prophylaxis Plan VTE Prophylaxis will be ordered: Yes Supervising Physician Co-Signing Physician Notes I have seen and examined the patient and have discussed the case with the provider above with the following exceptions. I agree with the assessment and plan as stated. 87-year-old man readmitted for repeat stroke. He was just hospitalized from 03/29 to yesterday for syncope and weakness found secondary to embolic stroke. [facility] and developed worsening stroke symptoms there. He was seen to have right-sided neglect, garbled speech and confusion unable to follow commands. On exam he is hypertensive and in no acute distress. He is unable to follow my commands and has an expressive aphasia with right-sided neglect. Due to the patient's acute change in neurostatus a stroke alert was activated with CT of the head and CTA of the head and neck unchanged from recent admission with no large vessel occlusion that would require endovascular therapy. CT head suggested developing left parietal stroke. CBC INR and CHEM panel are within normal limits. COVID nasal swab is negative. A chest x-ray was also performed with no acute process and EKG revealed sinus rhythm with first-degree AV block and PACs. Acute embolic stroke with hypertensive urgency Agitation Acute metabolic encephalopathy Patient is currently unable to swallow. Will continue aspirin rectally. Per neurology as noted above no indication for DAPT or permissive hypertension. Labetalol given in the ER and will continue blood pressure control efforts in PCU. Repeat therapy assessments including PT, OT and speech. We are consulting cardiology given embolic picture with no evidence of source in the neck and no arrhythmias seen on recent telemetry monitoring. Continue telemetry monitoring and supportive care. DO Ernesto (3) Hypertension Hypertension type: unspecified Qualified Code(s): I10 - Essential (primary) hypertension (4) CKD (chronic kidney disease), stage III Chronic kidney disease stage 3 subtype: unspecified whether 3a or 3b Qualified Code(s): N18.30 - Chronic kidney disease, stage 3 unspecified
--- NOTE | 2023-04-04 20:12 | Magnetic Resonance Report ---
MRI OF THE BRAIN WITHOUT IV CONTRAST CLINICAL HISTORY: Neurological deficit. Stroke. COMPARISON STUDY: CT of the brain dated 04/04/2023. TECHNIQUE: MRI of the brain was performed utilizing various T1 and T2-weighted sequences in the axial , sagittal, and coronal planes. IV contrast was not administered for this examination. FINDINGS: Brain parenchyma: There are large foci of restricted diffusion within the high left posterior parieta l lobe and in the left occipital lobe. Numerous additional small foci of restricted diffusion are see n throughout the left hemisphere. There are also foci of restricted diffusion in the right frontal lo be and in the high right frontoparietal region. This is consistent with multifocal acute to subacute infarcts. There is no hemorrhage or mass effect. There is age-related involutional change noted advan prisca confluent subcortical and periventricular microangiopathic disease. No extra-axial fluid collecti on is seen. The cerebellar tonsils are normal in configuration. Ventricles, sulci, and cisterns: Prominent secondary to motion change. Pituitary and sella: Unremarkable. Intracranial vasculature: Normal flow voids are maintained at the skull base. Orbits: The bony orbits are grossly intact. Orbital contents are normal in appearance. Sinuses and mastoids: There is mild mucosal thickening in the left maxillary sinus. The remaining par anasal sinuses and the mastoid air cells are clear. Calvarium: Unremarkable. Cervical cord: Partially visualized cervical spinal cord is normal in morphology and signal intensity . IMPRESSION: 1. There are numerous foci of acute to subacute ischemia seen bilaterally across vascular territories , with the largest foci seen in the left parietal and occipital lobes. The appearance favors an embol ic phenomenon. 2. There is no hemorrhage or mass effect. ACT 112: Negative or not required by law. Electronically signed by: James Crockett M.D. 04/04/2023 8:10 PM
[2023-04-04] MEDS: D5NSS + 20MEQ KCL 20 MEQ/1,000 ML BAG IV SCH (21:48)
[2023-04-05 00:20] LABS: Appearance Urine Cloudy (Clear); Bacteria Urine Automated Negative (Negative); Bilirubin Urine Negative (Negative); Blood Urine Negative (Negative); Color Urine Yellow; Epithelial Cell Urine Auto >30 /lpf (0-5); Glucose Urine UA Negative (Negative); Ketones Urine 3+ (Negative); Leukocyte Esterase Urine Negative (Negative); Nitrite Urine Negative (Negative); Protein Urine 1+ (Negative); RBC Urine Automated 0-4 /hpf (0-4); Specific Gravity Urine 1.045 (1.000-1.030); Urobilinogen Urine Negative (Negative)
--- NOTE | 2023-04-05 02:41 | CT Scan Report ---
Exam(s): CT ABDOMEN + PELVIS Without Contrast EXAM: CT Abdomen and Pelvis Without Intravenous Contrast CLINICAL HISTORY: Abdominal distention. TECHNIQUE: Axial computed tomography images of the abdomen and pelvis without intravenous contrast. CTDI is 26.09 mGy and DLP is 1358.77 mGy-cm. Automated exposure control was utilized for the study. A dose lowering technique was utilized adhering to the principles of ALARA. COMPARISON: No relevant prior studies available. FINDINGS: Lung bases: Unremarkable. No mass. No consolidation. ABDOMEN: Liver: Unremarkable. Gallbladder and bile ducts: Cholelithiasis. No ductal dilation. Pancreas: Unremarkable. No ductal dilation. Spleen: Unremarkable. No splenomegaly. Adrenals: Unremarkable. No mass. Kidneys and ureters: Unremarkable. No obstructing stones. No hydronephrosis. Stomach and bowel: Unremarkable. No obstruction. No mucosal thickening. PELVIS: Appendix: No findings to suggest acute appendicitis. Bladder: The urinary bladder is decompressed secondary to a Swan catheter. No stones. Reproductive: Marked prostate gland enlargement. ABDOMEN and PELVIS: Intraperitoneal space: Unremarkable. No free air. No significant fluid collection. Bones/joints: There are degenerative changes of the spine. No acute fracture. No dislocation. Soft tissues: Small bilateral fat-containing inguinal hernias. Vasculature: Mild atherosclerosis. No abdominal aortic aneurysm. Lymph nodes: Unremarkable. No enlarged lymph nodes. IMPRESSION: 1. Marked prostate gland enlargement. 2. Cholelithiasis. Electronically signed by: Adriana Khan MD 04/05/23 02:40 AM
--- OUTSIDE RECORDS SUMMARY | 2023-04-05 07:00 | External Medical Summary ---
Author Name Unknown Address Unknown Organization [id number]:[facility] [place] [address] Laboratory Report Ordering Provider Test Date Status ADALID MADDOX 04/04/2023 06:33:00 Final Observation Date Value Abnormality Reference (Units ) Status BUN 04/04/2023 06:33:00 16 6-20 (mg/dL) Final Creatinine 04/04/2023 06:33:00 1.1 0.6-1.2 (mg/dL) Final Glomerular filtration rate/1.73 sq M.predicted [Volume Rate/Area] in Serum, Plasma or Blood by Creatinine-based formula (CKD-EPI) 04/04/2023 06:33:00 65 >=60 (mL/min) Final eGFR is calculated based on the CKD-EPI 2020 equation SODIUM 04/04/2023 06:33:00 137 135-146 (m mol/L) Final Potassium 04/04/2023 06:33:00 4.5 3.5-5.1 (m mol/L) Final Cl 04/04/2023 06:33:00 102 98-107 (mm ol/L) Final CO2 04/04/2023 06:33:00 20 Below low normal 22- 32 (mmol/L) Final Anion gap 04/04/2023 06:33:00 15 7-15 (mmol /L) Final Glucose 04/04/2023 06:33:00 97 70-120 (mg /dL) Final Calcium 04/04/2023 06:33:00 9.6 8.4-10.2 ( mg/dL) Final Performing Location [facility] [place] [address]
--- OUTSIDE RECORDS SUMMARY | 2023-04-05 07:00 | External Medical Summary ---
Author Name Unknown Address Unknown Organization K09:[facility] [place] [address] Laboratory Report Ordering Provider Test Date Status ADALID MADDOX 04/04/2023 06:33:00 Final Observation Date Value Abnormality Reference (Units ) Status WBC, Total 04/04/2023 06:33:00 8.07 4.00-10.8 0 (K/uL) Final RBC 04/04/2023 06:33:00 5.56 4.50-5.25 (M/uL) Final Hemoglobin 04/04/2023 06:33:00 16.7 14.0-16.8 (g/dL) Final HCT 04/04/2023 06:33:00 47.4 40.0-48.4 (%) Final MCV 04/04/2023 06:33:00 85.3 82.0-99.5 (fL) Final MCH 04/04/2023 06:33:00 30.0 27.0-34.0 (pg) Final MCHC 04/04/2023 06:33:00 35.2 32.0-36.0 (g/dL) Final RDW 04/04/2023 06:33:00 14.3 11.5-15.5 (%) Final Platelets 04/04/2023 06:33:00 274 140-400 (K /uL) Final MPV 04/04/2023 06:33:00 8.8 6.6-11.1 ( fL) Final Performing Location [facility] [place] [address]
[2023-04-05 07:32] LABS: Basophils # (auto) 0.05 K/uL (0.00-0.20); Basophils % (auto) 0.5 %; Eosinophils # (auto) 0.02 K/uL (0.00-0.50); Eosinophils % (auto) 0.2 %; Hematocrit (blood only) 41.2 % (42.0-52.0); Immature Granulocytes # (auto) 0.06 K/uL (0.01-0.20); Immature Granulocytes % (auto) 0.6 %; Lymphocytes # (auto) 1.42 K/uL (1.20-3.40); Lymphocytes % (auto) 13.1 %; Mean Corpuscular Hemoglobin 30.7 pg (25.0-34.0); Mean Corpuscular Hgb Conc 36.4 g/dL (32.0-36.0); Mean Corpuscular Volume 84.3 fL (80.0-100.0); Mean Platelet Volume 8.7 fL (9.4-12.4); Monocytes # (auto) 1.28 K/uL (0.11-0.59); Monocytes % (auto) 11.8 %; Neutrophils # (auto) 8.05 K/uL (1.40-6.50); Neutrophils % (auto) 73.8 %; Platelet Count 259 K/uL (130-400); RDW Coefficient of Variation 13.8 % (11.5-14.5); Red Blood Count 4.89 M/uL (4.70-6.10); White Blood Count 10.88 K/ul (4.8-10.8)
[2023-04-05 07:58] LABS: C Reactive Protein 2.06 mg/dl (0-0.5); Calcium 8.6 mg/dl (8.6-10.3); Chol HDL Ratio 3.3 (0-5); Creatinine Clr Calc Pharmacy 47.1 ml/min; Est GFR (African American) 73.3 ml/min; Est GFR (Non-African American) 63.2 ml/min; Potassium 4.1 mmol/L (3.5-5.1)
[2023-04-05 09:01] LABS: Estimated Average Glucose 94 mg/dl; Hemoglobin A1C 4.9 % (4.5-5.6)
[2023-04-05] MEDS: D5NSS + 20MEQ KCL 20 MEQ/1,000 ML BAG IV SCH ×2 (09:07→20:12)
[2023-04-05] MEDS ORDERED: hydrALAZINE HCL 20 MG/ML VIAL IV ONE ×2 (09:08→13:16)
[2023-04-05] MEDS ORDERED: ACETAMINOPHEN 1,000 MG/100 ML VIAL IV PRN (10:34)
--- NOTE | 2023-04-05 11:46 | Neurology Consultation ---
Date of Consultation April 05, 2023 Assessment & Plan (1) Acute CVA (cerebrovascular accident): Patient presents back with worsening of his stroke deficits secondary to extension of his prior infarcts. Reviewing the initial history, patient was found down at home and stroke burden localized to the borderzone/watershed territory. This region is also typical for cardioembolism and therefore we recommended zio patch despite normal echo (TTE). Now, the MRI shows extension of the prior strokes, with much larger burden in the L hemisphere but again localized to the borderzone. While cardioembolism with a second shower of emboli is possible, I personally feel that it is less likely as there are no strokes th roughout the posterior circulation. However, unclear why patient would have extended his strokes despite no hypotension at rehab. Appreciate cardiology opinion on the need and risk/benefit of DAILY in this context. Empiric anticoagulation is otherwise not indicated, patient can remain on aspirin. I am otherwise concerned about his overall prognosis given his age and severity of his stroke deficits. -- Cardiology input appreciated re: DAILY/cardioembolism -- Continue aspirin and statin -- Continue therapy evals Telehealth Consultation Telehealth Information Telehealth Information: I performed this visit using a real-time telehealth connection between my location and the patients location ([facility]). After connecting through interactive tele-video, patient was identified by name and date of and/or wristband check.Patient (or authorized healthcare training representative) was informed that this was a telemedicine visit and it was being conducted confidentially over secure lines. My office door was closed and no one else was present in the room with me.Patient (or authorized healthcare training representative) provided consent to proceed with the visit, expressed an understanding of privacy and security of the telemedicine visit, and gave permission to have a hospital training representative in the room in order to assist with the visit and to conduct portions of the visit, as needed. I informed the patient (or authorized healthcare training representative) that I reviewed their record and presented the opportunity for them to ask any questions regarding the visit today. The patient agreed to participate. History of Present Illness Reason for Consultation: Worsened stroke Requesting Physician: Dr. Kenny Attending Physician: Nate Kenny MD History of Present Illness Angel Everett is an 87 yo M readmitted from rehab with R sided weakness, aphasia and neglect. When I last saw him 3 days ago he was alert and interactive. Per his son at bedside after he got to rehab he had an acute change which has been persistent. The patient is restless and difficult to arouse. He is unable to contribute to the history. There was no reported hypotension or syncope while at rehab. No change in medication otherwise. Allergies Allergy/AdvReac Type Severity Reaction Status Date / Time No Known Allergies Allergy Unverified 03/29/23 20:25 Home Medications Medication Instructions Recorded Confirmed Type aspirin 81 mg tablet,delayed 81 mg PO DAILY 03/29/23 04/04/23 History release cholecalciferol (vitamin D3) 25 25 mcg PO DAILY 03/29/23 04/04/23 History mcg (1,000 unit) capsule multivitamin with minerals 1 tab PO DAILY 03/29/23 04/04/23 History (Multiple Vitamin-Minerals tablet) amlodipine 5 mg tablet (Norvasc) 5 mg PO QPM #30 tabs 03/31/23 04/04/23 Rx atorvastatin 40 mg tablet 40 mg PO HS #30 tabs 04/03/23 04/04/23 Rx Patient History Medical History HLD (hyperlipidemia) CVA (cerebral vascular accident) CKD (chronic kidney disease), stage III Social History Smoking Status: Never smoker Hx Alcohol Use: No Hx Substance Use: No Preferred Language: Lithuanian Communication Ability: Effective Linux Consultant Required: Yes Beliefs That Will Affect Care: None Current Living Situation: Alone Feels Safe at Home: Yes Assistive Devices: None Physical Exam Eyes closed, restless, moving on his left side. Non-verbal, does not follow commands. Results & Data Vital Signs (Past 12 Hours) Vital Signs Temp Pulse Pulse Resp BP Pulse Ox O2 Del Method 04/05/23 10:09 172/111 H 04/05/23 08:54 36.9 C 82 20 181/100 H 95 Room Air 04/05/23 07:41 82 04/05/23 03:30 37.2 C 96 H 18 173/107 H 95 Room Air Laboratory Results Abnormal lab results 04/04/23 04/04/23 04/04/23 Range/Units 14:00 14:11 14:12 WBC (4.8-10.8) K/ul Hct (42.0-52.0) % MCHC 36.5 H (32.0-36.0) g/dL MPV 8.3 L (9.4-12.4) fL Neut # (Auto) (1.40-6.50) K/uL [place] # (Auto) 0.96 H (0.11-0.59) K/uL ESR (0-20) mm/hr POC Total CO2 23 L (24-31) mmol/L POC BUN 22 H (7-18) mg/dl Glucose 102 H (70-99(Fasting)) mg/dl POC Glucose 118 H (70-99) mg/dl POC Glucose (other) 106 H (70-99) mg/dl POC Ioniz Calcium Heidi 1.03 L (1.12-1.32) mmol/l Total Bilirubin 1.3 H (0.2-1.0) mg/dl C-Reactive Protein (0-0.5) mg/dl Urine Appearance (Clear) Ur Specific [place] (1.000-1.030) Urine Protein (Negative) Urine Ketones (Negative) U Epithel Cells (Auto) (0-5) /lpf 04/04/23 04/05/23 04/05/23 Range/Units 23:31 06:38 Unknown WBC 10.88 H (4.8-10.8) K/ul Hct 41.2 L (42.0-52.0) % MCHC 36.4 H (32.0-36.0) g/dL MPV 8.7 L (9.4-12.4) fL Neut # (Auto) 8.05 H (1.40-6.50) K/uL [place] # (Auto) 1.28 H (0.11-0.59) K/uL ESR 26 H (0-20) mm/hr POC Total CO2 (24-31) mmol/L POC BUN (7-18) mg/dl Glucose 128 H (70-99(Fasting)) mg/dl POC Glucose 121 H (70-99) mg/dl POC Glucose (other) (70-99) mg/dl POC Ioniz Calcium Heidi (1.12-1.32) mmol/l Total Bilirubin (0.2-1.0) mg/dl C-Reactive Protein 2.06 H (0-0.5) mg/dl Urine Appearance Cloudy A (Clear) Ur Specific [place] 1.045 H (1.000-1.030) Urine Protein 1+ H (Negative) Urine Ketones 3+ H (Negative) U Epithel Cells (Auto) >30 H (0-5) /lpf Diagnostic Findings MRI brain - extension of previously seen borderzone infarcts
[2023-04-05] MEDS: ASPIRIN 300 MG SUPP PR SCH ×3 (12:31→17:59)
--- NOTE | 2023-04-05 14:14 | Hospitalist Progress Note ---
Date of Service April 05, 2023 Assessment & Plan (1) Acute CVA (cerebrovascular accident): (2) Aphasia: Plan: Admit to telemetry Patient presenting from [facility] for evaluation of garbled speech and altered mental status. Recently admitted to [facility] 03/29 through 04/03 for acute CVA and patient was discharged to [facility] for rehab. Case discussed with neurology Dr. Chris via tigertext on admission Repeat brain MRI obtained - 1. There are numerous foci of acute to subacute ischemia seen bilaterally across vascular territories, with the largest foci seen in the left parietal and occipital lobes. The appearance favors an embolic phenomenon. 2. There is no hemorrhage or mass effect. Continue ASA (will give rectally until able to take p.o.), no indication for DAPT or permissive hypertension at this time Resume statin once taking p.o. Cardiology consult due to concerns of cardioembolic CVA 04/05 Per neurology - Patient presents back with worsening of his stroke deficits secondary to extension of his prior infarcts. Reviewing the initial history, patient was found down at home and stroke burden localized to the borderzone/watershed territory. This region is also typical for cardioembolism and therefore we recommended zio patch despite normal echo (TTE). Now, the MRI shows extension of the prior strokes, with much larger burden in the L hemisphere but again localized to the borderzone. While cardioembolism with a second shower of emboli is possible, I personally feel that it is less likely as there are no strokes throughout the posterior circulation. However, unclear why patient would have extended his strokes despite no hypotension at rehab. Appreciate cardiology opinion on the need and risk/benefit of DAILY in this context. Empiric anticoagulation is otherwise not indicated, patient can remain on aspirin. I am otherwise concerned about his overall prognosis given his age and severity of his stroke deficits. -- Cardiology input appreciated re: DAILY/cardioembolism -- Continue aspirin and statin -- Continue therapy evals 04/05 Per cardiology - -Patient with presentation for change in mental status, confusion, somnolence, unable to articulate. 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 They were in both cerebral hemispheres. Telemetry reviewed and reveals sinus rhythm without evidence of atrial fibrillation. Previous echocardiogram performed 03/30/2023 reviewed and the images were reviewed independently revealing sinus rhythm with subtle hypokinesis of the basal inferior/posterior segments and otherwise normal wall motion, with LVEF in the range of 50-55%. Mild aortic valve sclerosis without stenosis. Aortic regurgitation. Obtaining blood cultures to exclude occult infection subacute bacterial endocarditis could present with embolic phenomenon. Patient was reportedly on aspirin at the time of his initial presentation over a week ago, and has been maintained on aspirin therapy in the meantime and now. He received aspirin per rectum most recently due to inability to take oral medication. Cardiology input requested with regards evaluation with transesophageal echocardiogram for further evaluation of possible cause of embolic strokes. At present, it is felt that the risk of sedation in this particular case would outweigh the benefits obtained from obtaining the information, but this will be reassessed this hospitalization develops. Continue telemetry monitoring to evaluate for occult atrial fibrillation. Blood cultx obtained - pending (3) Hypertension: Plan: BP elevated, received labetalol, hydralazine, now can take PO - resume amlodipine Labetalol PRN DVT PROPHYLAXIS SCDs for now (4) CKD (chronic kidney disease), stage III: (5) Acute metabolic encephalopathy: Admission and Anticipated Discharge Date Admission Date: April 04, 2023 Subjective Pt seen in follow up of CVA Recently admitted with CVA and discharged to rehab. in rehab unfortunately he had significant change in status, and currently restless, not answering questions. Son present at the bedside. Neurology (Dr. Chris) consulted. cardiology also consulted. Review of Systems Review of Systems: All systems reviewed & are unremarkable except as noted in Subjective Physical Exam Physical Exam: Constitutional: WD/WN, elderly M r estless, on RA Eyes: conjunctivae rodrick l, anicteric scler ae ENMT: Ears: no external ear abnormality N ose: no external n ose abnormality Respiratory: normal respiratory effort, lungs travis ar to auscultation Cardiovascular: Rate/Rhythm: regul ar rhythm and + ta chycardic Vessels : normal periphera l pulses Extremit ies: no edema Gastrointestinal ( Abdomen): normal bowel sound s, soft, nontender Skin: no rashes, warm an d dry Neurologic: Patient moves all extremities howev er without purpose and does not foll ow commands, speec h is garbled, inte rmittent left-side d gaze Results & Data Results & Data Vital Signs (Past 12 Hours) Vital Signs Temp Pulse Pulse Resp BP Pulse Ox O2 Del Method 04/05/23 12:36 36.8 C 94 H 22 165/101 H 95 Room Air 04/05/23 10:09 172/111 H 04/05/23 08:54 36.9 C 82 20 181/100 H 95 Room Air 04/05/23 07:41 82 04/05/23 03:30 37.2 C 96 H 18 173/107 H 95 Room Air Laboratory Results 04/05/23 04/05/23 04/05/23 Range/Units Unknown 12:33 06:38 WBC 10.88 H (4.8-10.8) K/ul RBC 4.89 (4.70-6.10) M/uL Hgb 15.0 (14.0-18.0) g/dl POC Hgb (14.0-18.0) g/dl Hct 41.2 L (42.0-52.0) % POC Hct (42-52) % MCV 84.3 (80.0-100.0) fL MCH 30.7 (25.0-34.0) pg MCHC 36.4 H (32.0-36.0) g/dL RDW Std Deviation 42.0 (36.4-46.3) fL RDW Coeff of Dorothy 13.8 (11.5-14.5) % Plt Count 259 (130-400) K/uL MPV 8.7 L (9.4-12.4) fL Immature Gran % (Auto) 0.6 % Neut % (Auto) 73.8 % Lymph % (Auto) 13.1 % [place] % (Auto) 11.8 % Eos % (Auto) 0.2 % Baso % (Auto) 0.5 % Neut # (Auto) 8.05 H (1.40-6.50) K/uL Lymph # (Auto) 1.42 (1.20-3.40) K/uL [place] # (Auto) 1.28 H (0.11-0.59) K/uL Eos # (Auto) 0.02 (0.00-0.50) K/uL Baso # (Auto) 0.05 (0.00-0.20) K/uL Immature Gran # (Auto) 0.06 (0.01-0.20) K/uL ESR 26 H (0-20) mm/hr PT (9.0-12.0) Seconds INR (0.9-1.1) APTT (21-31) Seconds PTT Ratio POC Sodium (135-144) mmol/L Sodium 136 (136-145) mmol/L POC Potassium (3.3-5.0) mmol/L Potassium 4.1 (3.5-5.1) mmol/L POC Chloride (101-112) mmol/L Chloride 106 (98-107) mmol/L Carbon Dioxide 22 (21-32) mmol/L POC Total CO2 (24-31) mmol/L Anion Gap 8 (3-11) POC Anion Gap (16-25) mmol/L POC BUN (7-18) mg/dl BUN 18 (6-23) mg/dl Creatinine 1.06 (0.6-1.4) mg/dl POC Creatinine (0.6-1.3) mg/dl Est Cr Clr Drug Dosing 47.1 ml/min Est GFR ( Amer) 73.3 ml/min Est GFR (Non-Af Amer) 63.2 ml/min BUN/Creatinine Ratio 17.0 (10-20) Glucose 128 H (70-99(Fasting)) mg/dl POC Glucose 155 H (70-99) mg/dl POC Glucose (other) (70-99) mg/dl Estimat Average Glucose 94 mg/dl Hemoglobin A1c 4.9 (4.5-5.6) % Calcium 8.6 (8.6-10.3) mg/dl POC Ioniz Calcium Heidi (1.12-1.32) mmol/l Magnesium (1.7-2.4) mg/dl Total Bilirubin (0.2-1.0) mg/dl AST (13-39) U/L ALT (7-52) U/L Alkaline Phosphatase (34-104) U/L Troponin I High Sens (0-20) pg/ml C-Reactive Protein 2.06 H (0-0.5) mg/dl Total Protein (6.0-8.3) gm/dl Albumin (3.4-5.0) gm/dl Globulin (2.5-4.0) gm/dl Albumin/Globulin Ratio (0.9-2) Triglycerides 66 (0-150) mg/dl Cholesterol 152 (0-200) mg/dl LDL Cholesterol, Calc 93 mg/dl VLDL Cholesterol, Calc 13 (0-30) mg/dl HDL Cholesterol 46 mg/dl Cholesterol/HDL Ratio 3.3 (0-5) Urine Color Yellow Urine Appearance Cloudy A (Clear) Urine pH 5.0 (4.5-7.5) Ur Specific [place] 1.045 H (1.000-1.030) Urine Protein 1+ H (Negative) Urine Glucose (UA) Negative (Negative) Urine Ketones 3+ H (Negative) Urine Blood Negative (Negative) Urine Nitrite Negative (Negative) Urine Bilirubin Negative (Negative) Urine Urobilinogen Negative (Negative) Ur Leukocyte Esterase Negative (Negative) Urine WBC (Auto) 1-5 (0-5) /hpf Urine RBC (Auto) 0-4 (0-4) /hpf U Hyaline Cast (Auto) 1-5 (0-5) /lpf U Epithel Cells (Auto) >30 H (0-5) /lpf Urine Bacteria (Auto) Negative (Negative) SARS-CoV-2, RNA, NAAT (NEGATIVE) 04/04/23 04/04/23 04/04/23 Range/Units 23:31 14:41 14:12 WBC (4.8-10.8) K/ul RBC (4.70-6.10) M/uL Hgb (14.0-18.0) g/dl POC Hgb 16.3 (14.0-18.0) g/dl Hct (42.0-52.0) % POC Hct 48 (42-52) % MCV (80.0-100.0) fL MCH (25.0-34.0) pg MCHC (32.0-36.0) g/dL RDW Std Deviation (36.4-46.3) fL RDW Coeff of Dorothy (11.5-14.5) % Plt Count (130-400) K/uL MPV (9.4-12.4) fL Immature Gran % (Auto) % Neut % (Auto) % Lymph % (Auto) % [place] % (Auto) % Eos % (Auto) % Baso % (Auto) % Neut # (Auto) (1.40-6.50) K/uL Lymph # (Auto) (1.20-3.40) K/uL [place] # (Auto) (0.11-0.59) K/uL Eos # (Auto) (0.00-0.50) K/uL Baso # (Auto) (0.00-0.20) K/uL Immature Gran # (Auto) (0.01-0.20) K/uL ESR (0-20) mm/hr PT (9.0-12.0) Seconds INR (0.9-1.1) APTT (21-31) Seconds PTT Ratio POC Sodium 137 (135-144) mmol/L Sodium (136-145) mmol/L POC Potassium 5.0 (3.3-5.0) mmol/L Potassium (3.5-5.1) mmol/L POC Chloride 103 (101-112) mmol/L Chloride (98-107) mmol/L Carbon Dioxide (21-32) mmol/L POC Total CO2 23 L (24-31) mmol/L Anion Gap (3-11) POC Anion Gap 17.0 (16-25) mmol/L POC BUN 22 H (7-18) mg/dl BUN (6-23) mg/dl Creatinine (0.6-1.4) mg/dl POC Creatinine 1.1 (0.6-1.3) mg/dl Est Cr Clr Drug Dosing ml/min Est GFR ( Amer) ml/min Est GFR (Non-Af Amer) ml/min BUN/Creatinine Ratio (10-20) Glucose (70-99(Fasting)) mg/dl POC Glucose 121 H (70-99) mg/dl POC Glucose (other) 106 H (70-99) mg/dl Estimat Average Glucose mg/dl Hemoglobin A1c (4.5-5.6) % Calcium (8.6-10.3) mg/dl POC Ioniz Calcium [place]idi 1.03 L (1.12-1.32) mmol/l Magnesium (1.7-2.4) mg/dl Total Bilirubin (0.2-1.0) mg/dl AST (13-39) U/L ALT (7-52) U/L Alkaline Phosphatase (34-104) U/L Troponin I High Sens (0-20) pg/ml C-Reactive Protein (0-0.5) mg/dl Total Protein (6.0-8.3) gm/dl Albumin (3.4-5.0) gm/dl Globulin (2.5-4.0) gm/dl Albumin/Globulin Ratio (0.9-2) Triglycerides (0-150) mg/dl Cholesterol (0-200) mg/dl LDL Cholesterol, Calc mg/dl VLDL Cholesterol, Calc (0-30) mg/dl HDL Cholesterol mg/dl Cholesterol/HDL Ratio (0-5) Urine Color Urine Appearance (Clear) Urine pH (4.5-7.5) Ur Specific [place] (1.000-1.030) Urine Protein (Negative) Urine Glucose (UA) (Negative) Urine Ketones (Negative) Urine Blood (Negative) Urine Nitrite (Negative) Urine Bilirubin (Negative) Urine Urobilinogen (Negative) Ur Leukocyte Esterase (Negative) Urine WBC (Auto) (0-5) /hpf Urine RBC (Auto) (0-4) /hpf U Hyaline Cast (Auto) (0-5) /lpf U Epithel Cells (Auto) (0-5) /lpf Urine Bacteria (Auto) (Negative) SARS-CoV-2, RNA, NAAT NEGATIVE (NEGATIVE) 04/04/23 Range/Units 14:11 WBC 8.97 (4.8-10.8) K/ul RBC 5.46 (4.70-6.10) M/uL Hgb 16.7 (14.0-18.0) g/dl POC Hgb (14.0-18.0) g/dl Hct 45.8 (42.0-52.0) % POC Hct (42-52) % MCV 83.9 (80.0-100.0) fL MCH 30.6 (25.0-34.0) pg MCHC 36.5 H (32.0-36.0) g/dL RDW Std Deviation 41.8 (36.4-46.3) fL RDW Coeff of [place] 13.9 (11.5-14.5) % Plt Count 277 (130-400) K/uL MPV 8.3 L (9.4-12.4) fL Immature Gran % (Auto) 0.3 % Neut % (Auto) 71.4 % Lymph % (Auto) 16.4 % [place] % (Auto) 10.7 % Eos % (Auto) 0.6 % Baso % (Auto) 0.6 % Neut # (Auto) 6.41 (1.40-6.50) K/uL Lymph # (Auto) 1.47 (1.20-3.40) K/uL [place] # (Auto) 0.96 H (0.11-0.59) K/uL Eos # (Auto) 0.05 (0.00-0.50) K/uL Baso # (Auto) 0.05 (0.00-0.20) K/uL Immature Gran # (Auto) 0.03 (0.01-0.20) K/uL ESR (0-20) mm/hr PT 10.9 (9.0-12.0) Seconds INR 1.0 (0.9-1.1) APTT 29 (21-31) Seconds PTT Ratio 1.0 POC Sodium (135-144) mmol/L Sodium 136 (136-145) mmol/L POC Potassium (3.3-5.0) mmol/L Potassium 4.1 (3.5-5.1) mmol/L POC Chloride (101-112) mmol/L Chloride 104 (98-107) mmol/L Carbon Dioxide 21 (21-32) mmol/L POC Total CO2 (24-31) mmol/L Anion Gap 11 (3-11) POC Anion Gap (16-25) mmol/L POC BUN (7-18) mg/dl BUN 18 (6-23) mg/dl Creatinine 1.06 (0.6-1.4) mg/dl POC Creatinine (0.6-1.3) mg/dl Est Cr Clr Drug Dosing 49.0 ml/min Est GFR ( Amer) 73.3 ml/min Est GFR (Non-Af Amer) 63.2 ml/min BUN/Creatinine Ratio 17.0 (10-20) Glucose 102 H (70-99(Fasting)) mg/dl POC Glucose (70-99) mg/dl POC Glucose (other) (70-99) mg/dl Estimat Average Glucose mg/dl Hemoglobin A1c (4.5-5.6) % Calcium 9.5 (8.6-10.3) mg/dl POC Ioniz Calcium Heidi (1.12-1.32) mmol/l Magnesium 2.2 (1.7-2.4) mg/dl Total Bilirubin 1.3 H (0.2-1.0) mg/dl AST 33 (13-39) U/L ALT 32 (7-52) U/L Alkaline Phosphatase 88 (34-104) U/L Troponin I High Sens 6.6 (0-20) pg/ml C-Reactive Protein (0-0.5) mg/dl Total Protein 7.4 (6.0-8.3) gm/dl Albumin 4.2 (3.4-5.0) gm/dl Globulin 3.2 (2.5-4.0) gm/dl Albumin/Globulin Ratio 1.3 (0.9-2) Triglycerides (0-150) mg/dl Cholesterol (0-200) mg/dl LDL Cholesterol, Calc mg/dl VLDL Cholesterol, Calc (0-30) mg/dl HDL Cholesterol mg/dl Cholesterol/HDL Ratio (0-5) Urine Color Urine Appearance (Clear) Urine pH (4.5-7.5) Ur Specific [place] (1.000-1.030) Urine Protein (Negative) Urine Glucose (UA) (Negative) Urine Ketones (Negative) Urine Blood (Negative) Urine Nitrite (Negative) Urine Bilirubin (Negative) Urine Urobilinogen (Negative) Ur Leukocyte Esterase (Negative) Urine WBC (Auto) (0-5) /hpf Urine RBC (Auto) (0-4) /hpf U Hyaline Cast (Auto) (0-5) /lpf U Epithel Cells (Auto) (0-5) /lpf Urine Bacteria (Auto) (Negative) SARS-CoV-2, RNA, NAAT (NEGATIVE) Medications Administered Current Inpatient Medications Aspirin (Aspirin 300 Mg Supp) 300 mg GA DAILY STANLEY Stop: 05/05/23 08:59 Last Admin: 04/05/23 12:31 Dose: Not Given Potassium Chloride/Dextrose/Sod Cl (D5nss + 20meq Kcl) 20 meq in 1,000 mls @ 100 mls/hr IV .Q10H STANLEY; Protocol Stop: 05/04/23 20:29 Last Admin: 04/05/23 09:07 Dose: 100 mls/hr Acetaminophen (Ofirmev) 1,000 mg in 100 mls @ 400 mls/hr IV Q8H PRN PRN Reason: Pain Stop: 04/08/23 10:33 Last Infusion: 04/05/23 11:27 Dose: Infused Miscellaneous Information (Pharmacist Discharge Med Rec Consult) 1 each N/A UD PRN PRN Reason: Consult Stop: 05/04/23 19:21 (3) Hypertension Hypertension type: unspecified Qualified Code(s): I10 - Essential (primary) hypertension (4) CKD (chronic kidney disease), stage III Chronic kidney disease stage 3 subtype: unspecified whether 3a or 3b Qualified Code(s): N18.30 - Chronic kidney disease, stage 3 unspecified
--- NOTE | 2023-04-05 15:55 | Cardiology Consultation ---
Date of Consultation April 05, 2023 Assessment & Plan (1) Acute CVA (cerebrovascular accident): -Patient with presentation for change in mental status, confusion, somnolence, unable to articulate. 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 They were in both cerebral hemispheres. Telemetry reviewed and reveals sinus rhythm without evidence of atrial fibrillation. Previous echocardiogram performed 03/30/2023 reviewed and the images were reviewed independently revealing sinus rhythm with subtle hypokinesis of the basal inferior/posterior segments and otherwise normal wall motion, with LVEF in the range of 50-55%. Mild aortic valve sclerosis without stenosis. Aortic regurgitation. Obtaining blood cultures to exclude occult infection subacute bacterial endocarditis could present with embolic phenomenon. Patient was reportedly on aspirin at the time of his initial presentation over a week ago, and has been maintained on aspirin therapy in the meantime and now. He received aspirin per rectum most recently due to inability to take oral medication. Cardiology input requested with regards evaluation with transesophageal echocardiogram for further evaluation of possible cause of embolic strokes. At present, it is felt that the risk of sedation in this particular case would outweigh the benefits obtained from obtaining the information, but this will be reassessed this hospitalization develops. Continue telemetry monitoring to evaluate for occult atrial fibrillation. History of Present Illness Attending Physician: Nate Kenny MD History of Present Illness Mr Everett is an 87 year old male seen in cardiology consultation per the request of SANTOS Vann for evaluation of suspected embolic stroke event. Patient's history is obtained per review of his record. He is currently unable to provide subjective history due to his current mental status. The patient had recently been hospitalized and was seen by Dr. Maldonado of our practice with initial cardiology consultation on 03/30/2023 with patient having presented for syncopal episode. Is noted to have historically had good health, hence the time of his p resentation last hospital stay, his only 3 medications had been aspirin 81 mg daily, vitamin D3, and a multivitamin. MRI of the brain performed 04/01/2023 revealed scattered subcentimeter acute to subacute appearing infarcts within the cerebral hemispheres, most pronounced within the bilateral centrum semiovale and superior frontal lobe cortices with a few additional punctate foci noted within the left parietal occipital distribution. The patient had ultimately been transferred to [facility] rehabilitation on 04/03/23. He presented again however day later on 04/04/2023 having been found to have worsening difficulty with speech and altered mental status. Repeat MRI of the brain reveals numerous foci of acute to subacute ischemia in the bilateral cerebral hemispheres, across vascular territories with the largest foci seen in the left parietal and occipital lobes. The radiology report describes that the etiology suggest embolic phenomenon. CT angiogram of the head and neck revealed atherosclerotic plaque of the left carotid bulb and proximal left internal carotid artery resulting in a 50% stenosis. Although the report of the CT angiogram of the brain suggested findings consist ent with possible vasculitis, the patient's ESR and CRP are only minimally elevated. Allergies Allergy/AdvReac Type Severity Reaction Status Date / Time No Known Allergies Allergy Unverified 03/29/23 20:25 Home Medications Medication Instructions Recorded Confirmed Type aspirin 81 mg tablet,delayed 81 mg PO DAILY 03/29/23 04/04/23 History release cholecalciferol (vitamin D3) 25 25 mcg PO DAILY 03/29/23 04/04/23 History mcg (1,000 unit) capsule multivitamin with minerals 1 tab PO DAILY 03/29/23 04/04/23 History (Multiple Vitamin-Minerals tablet) amlodipine 5 mg tablet (Norvasc) 5 mg PO QPM #30 tabs 03/31/23 04/04/23 Rx atorvastatin 40 mg tablet 40 mg PO HS #30 tabs 04/03/23 04/04/23 Rx Patient History Medical History HLD (hyperlipidemia) CVA (cerebral vascular accident) CKD (chronic kidney disease), stage III Social History Smoking Status: Never smoker Hx Alcohol Use: No Hx Substance Use: No Preferred Language: Icelandic Communication Ability: Effective Psychological Stress Evaluator Required: Yes Beliefs That Will Affect Care: None Current Living Situation: Alone Feels Safe at Home: Yes Assistive Devices: None Review of Systems Review of Systems: Unobtainable due to reduced consciousness Physical Exam Constitutional: + ill appearing Respiratory: normal respiratory effort, lungs clear to auscultation Cardiovascular: RRR, no murmur, no edema Gastrointestinal (Abdomen): normal bowel sounds, soft, nontender, no hepatosplenomegaly Neurologic: Lethargic, somnolent, unable to provide subjective input on exam, appears to move all 4 extremities spontaneously but does not follow commands. Results & Data Vital Signs (Past 12 Hours) Vital Signs Temp Pulse Pulse Resp BP Pulse Ox O2 Del Method 04/05/23 15:10 37.2 C 96 H 18 123/73 95 Room Air 04/05/23 12:36 36.8 C 94 H 22 165/101 H 95 Room Air 04/05/23 10:09 172/111 H 04/05/23 08:54 36.9 C 82 20 181/100 H 95 Room Air 04/05/23 07:41 82 Laboratory Results Lipids 04/05/23 Range/Units 06:38 Triglycerides 66 (0-150) mg/dl Cholesterol 152 (0-200) mg/dl HDL Cholesterol 46 mg/dl Cholesterol/HDL Ratio 3.3 (0-5) CBC 04/05/23 Range/Units 06:38 WBC 10.88 H (4.8-10.8) K/ul RBC 4.89 (4.70-6.10) M/uL Hgb 15.0 (14.0-18.0) g/dl Hct 41.2 L (42.0-52.0) % Plt Count 259 (130-400) K/uL Neut # (Auto) 8.05 H (1.40-6.50) K/uL Lymph # (Auto) 1.42 (1.20-3.40) K/uL [place] # (Auto) 1.28 H (0.11-0.59) K/uL Eos # (Auto) 0.02 (0.00-0.50) K/uL Baso # (Auto) 0.05 (0.00-0.20) K/uL Comprehensive Metabolic Panel 04/05/23 Range/Units 06:38 Sodium 136 (136-145) mmol/L Potassium 4.1 (3.5-5.1) mmol/L Chloride 106 (98-107) mmol/L Carbon Dioxide 22 (21-32) mmol/L BUN 18 (6-23) mg/dl Creatinine 1.06 (0.6-1.4) mg/dl Glucose 128 H (70-99(Fasting)) mg/dl Calcium 8.6 (8.6-10.3) mg/dl Intake and Output 04/05/23 04/05/23 04/05/23 06:59 14:59 22:59 Intake Total 236.667 / 1236.667 863.333 / 863.333 Output Total 251 / 251 Balance -14.333 / 985.667 863.333 / 863.333 Intake: IV 236.667 / 1236.667 863.333 / 863.333 Acetaminophen 1,000 mg In 100 100 / 100 ml @ 400 mls/hr IV Q8H PRN Rx#: [id number] D5nss + 20Meq KCl 20 meq In 1, 236.667 / 236.667 763.333 / 763.333 000 ml @ 100 mls/hr IV .Q10H [facility] Rx#:[id number] Output: Urine Amount (Catheter) 250 / 250 Swan/Indwelling 250 / 250 # Bowel Movements Other: # Unmeasured Voids 1 Weight 77.5 kg Weight Measurement Method Built in [facility] Diagnostic Findings EKG performed 04/05/2023 at 5:47 AM sinus rhythm with first-degree AV block, no significant repolarization changes. -Additional prior EKG tracings reviewed all of which revealed sinus rhythm
[2023-04-05] MEDS ORDERED: KETOROLAC TROMETHAMINE 15 MG/ML VIAL IV PRN (17:40)
[2023-04-05] MEDS: ACETAMINOPHEN 1,000 MG/100 ML VIAL IV SCH (18:02)
[2023-04-05] MEDS: ATORVASTATIN 40 MG TAB PO SCH (20:12)
[2023-04-06] MEDS: ACETAMINOPHEN 1,000 MG/100 ML VIAL IV SCH ×3 (02:13→18:10)
[2023-04-06] MEDS: D5NSS + 20MEQ KCL 20 MEQ/1,000 ML BAG IV SCH ×2 (05:06→16:41)
[2023-04-06 07:19] LABS: Basophils # (auto) 0.04 K/uL (0.00-0.20); Basophils % (auto) 0.4 %; Eosinophils # (auto) 0.14 K/uL (0.00-0.50); Eosinophils % (auto) 1.5 %; Hematocrit (blood only) 42.5 % (42.0-52.0); Hemoglobin 14.6 g/dl (14.0-18.0); Immature Granulocytes # (auto) 0.04 K/uL (0.01-0.20); Immature Granulocytes % (auto) 0.4 %; Lymphocytes # (auto) 1.42 K/uL (1.20-3.40); Lymphocytes % (auto) 15.2 %; Mean Corpuscular Hgb Conc 34.4 g/dL (32.0-36.0); Mean Corpuscular Volume 87.3 fL (80.0-100.0); Mean Platelet Volume 8.4 fL (9.4-12.4); Monocytes # (auto) 1.11 K/uL (0.11-0.59); Monocytes % (auto) 11.9 %; Neutrophils # (auto) 6.59 K/uL (1.40-6.50); Neutrophils % (auto) 70.6 %; Platelet Count 240 K/uL (130-400); RDW Standard Deviation 44.1 fL (36.4-46.3); Red Blood Count 4.87 M/uL (4.70-6.10); White Blood Count 9.34 K/ul (4.8-10.8)
[2023-04-06 07:33] LABS: BUN Creatinine Ratio 15.4 (10-20); Calcium 8.6 mg/dl (8.6-10.3); Creatinine Clr Calc Pharmacy 49.1 ml/min; Est GFR (Non-African American) 64.7 ml/min; Magnesium 1.9 mg/dl (1.7-2.4); Phosphorus 2.8 mg/dl (2.5-4.9); Potassium 3.9 mmol/L (3.5-5.1)
[2023-04-06] MEDS: amLODIPine BESYLATE 5 MG TAB PO SCH (09:26)
[2023-04-06] MEDS: ASPIRIN 81 MG ECTAB PO SCH (10:54)
--- NOTE | 2023-04-06 13:14 | Cardiology Progress Note ---
Date of Service April 06, 2023 Assessment & Plan (1) Acute CVA (cerebrovascular accident): Plan: -Patient with presentation for change in mental status, confusion, somnolence, unable to articulate. 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 They were in both cerebral hemispheres. Telemetry reviewed and reveals sinus rhythm without evidence of atrial fibrillation. Previous echocardiogram performed 03/30/2023 reviewed and the images were reviewed independently revealing sinus rhythm with subtle hypokinesis of the basal inferior/posterior segments and otherwise normal wall motion, with LVEF in the range of 50-55%. Mild aortic valve sclerosis without stenosis. Aortic regurgitation. Blood cultures obtained on 04/05/2023, no growth thus far. Patient is back on oral aspirin, agree with amlodipine, atorvastatin. Cardiology input requested with regards evaluation with transesophageal echocardiogram for further evaluation of possible cause of embolic strokes. At present, it is felt that the risk of sedation in this particular case would outweigh the benefits obtained from obtaining the information, but this will be reassessed this hospitalization develops. Continue telemetry monitoring to evaluate for occult atrial fibrillation. Admission and Anticipated Discharge Date Admission Date: April 04, 2023 Subjective Patient a bit more alert today, but not conversant. He seems to be neglectful of his right side. Telemetry reveals sinus rhythm in the 60s. Physical Exam Constitutional: + ill appearing Respiratory: normal respiratory effort, lungs clear to auscultation Cardiovascular: RRR, no murmur, no edema Gastrointestinal (Abdomen): normal bowel sounds, soft, nontender, no hepatosplenomegaly Neurologic: Depressed cognitive status noted Neglectful of right side Results & Data Vital Signs (Past 12 Hours) Vital Signs Temp Pulse Pulse Resp BP Pulse Ox O2 Del Method 04/06/23 12:34 36.8 C 71 20 171/87 H 97 Room Air 04/06/23 07:27 36.4 C L 73 22 177/95 H 95 Room Air 04/06/23 07:21 81 04/06/23 04:39 36.6 C 72 22 163/88 H 97 Room Air Laboratory Results CBC 04/06/23 Range/Units 06:51 WBC 9.34 (4.8-10.8) K/ul RBC 4.87 (4.70-6.10) M/uL Hgb 14.6 (14.0-18.0) g/dl Hct 42.5 (42.0-52.0) % Plt Count 240 (130-400) K/uL Neut # (Auto) 6.59 H (1.40-6.50) K/uL Lymph # (Auto) 1.42 (1.20-3.40) K/uL [place] # (Auto) 1.11 H (0.11-0.59) K/uL Eos # (Auto) 0.14 (0.00-0.50) K/uL Baso # (Auto) 0.04 (0.00-0.20) K/uL Comprehensive Metabolic Panel 04/06/23 Range/Units 06:51 Sodium 139 (136-145) mmol/L Potassium 3.9 (3.5-5.1) mmol/L Chloride 109 H (98-107) mmol/L Carbon Dioxide 24 (21-32) mmol/L BUN 16 (6-23) mg/dl Creatinine 1.04 (0.6-1.4) mg/dl Glucose 109 H (70-99(Fasting)) mg/dl Calcium 8.6 (8.6-10.3) mg/dl
--- NOTE | 2023-04-06 17:39 | Hospitalist Progress Note ---
Date of Service April 06, 2023 Assessment & Plan (1) Acute CVA (cerebrovascular accident): (2) Aphasia: Plan: Admitted to telemetry Patient presenting from [facility] for evaluation of garbled speech and altered mental status. Recently admitted to [facility] 03/29 through 04/03 for acute CVA and patient was discharged to [facility] for rehab. Case discussed with neurology Dr. Chris via tigertext on admission Repeat brain MRI obtained - 1. There are numerous foci of acute to subacute ischemia seen bilaterally across vascular territories, with the largest foci seen in the left parietal and occipital lobes. The appearance favors an embolic phenomenon. 2. There is no hemorrhage or mass effect. Continue ASA (will give rectally until able to take p.o.), no indication for DAPT or permissive hypertension at this time Resume statin once taking p.o. Cardiology consult due to concerns of cardioembolic CVA 04/05 Per neurology - Patient presents back with worsening of his stroke deficits secondary to extension of his prior infarcts. Reviewing the initial history, patient was found down at home and stroke burden localized to the borderzone/watershed territory. This region is also typical for cardioembolism and therefore we recommended zio patch despite normal echo (TTE). Now, the MRI shows extension of the prior strokes, with much larger burden in the L hemisphere but again localized to the borderzone. While cardioembolism with a second shower of emboli is possible, I personally feel that it is less likely as there are no strokes throughout the posterior circulation. However, unclear why patient would have extended his strokes despite no hypotension at rehab. Appreciate cardiology opinion on the need and risk/benefit of DAILY in this context. Empiric anticoagulation is otherwise not indicated, patient can remain on aspirin. I am otherwise concerned about his overall prognosis given his age and severity of his stroke deficits. -- Cardiology input appreciated re: DAILY/cardioembolism -- Continue aspirin and statin -- Continue therapy evals 04/05 Per cardiology - -Patient with presentation for change in mental status, confusion, somnolence, unable to articulate. 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 They were in both cerebral hemispheres. Telemetry reviewed and reveals sinus rhythm without evidence of atrial fibrillation. Previous echocardiogram performed 03/30/2023 reviewed and the images were reviewed independently revealing sinus rhythm with subtle hypokinesis of the basal inferior/posterior segments and otherwise normal wall motion, with LVEF in the range of 50-55%. Mild aortic valve sclerosis without stenosis. Aortic regurgitation. Obtaining blood cultures to exclude occult infection subacute bacterial endocarditis could present with embolic phenomenon. Patient was reportedly on aspirin at the time of his initial presentation over a week ago, and has been maintained on aspirin therapy in the meantime and now. He received aspirin per rectum most recently due to inability to take oral medication. Cardiology input requested with regards evaluation with transesophageal echocardiogram for further evaluation of possible cause of embolic strokes. At present, it is felt that the risk of sedation in this particular case would outweigh the benefits obtained from obtaining the information, but this will be reassessed this hospitalization develops. Continue telemetry monitoring to evaluate for occult atrial fibrillation. Blood cultx obtained - pending 04/06/2023 - Pt not moving R arm or R leg. Looks at me when I talk to him. Difficulty taking meds today. Discussed w/ neurology and pt's family. CT head repeated - 1. No acute intracranial hemorrhage. No significant mass effect. 2. Redemonstration of the acute infarcts shown on prior CT and MRI. These are most evident within the left parietal occipital lobes. 3. Hypodensity within the posterior bilateral frontal lobes which is more conspicuous than on prior CT. 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 Neurology reviewed images - expected evolution of CVA Palliative medicine also consulted (3) Hypertension: Plan: BP elevated, received labetalol, hydralazine - resumed amlodipine but now pt has difficulty swallowing Labetalol PRN DVT PROPHYLAXIS SCDs for now (4) CKD (chronic kidney disease), stage III: (5) Acute metabolic encephalopathy: Admission and Anticipated Discharge Date Admission Date: April 04, 2023 Subjective Pt seen in follow up of CVA Recently admitted with CVA and discharged to rehab. in rehab unfortunately he had significant change in status. Yesterday he was restless, not answering questions. Today calm, not moving R arm or R leg, looks at me when talking to him. Repeated CT scan of his head Neurology (Dr. Chris) consulted. cardiology also consulted. Review of Systems Review of Systems: Unobtainable due to cognitive status Physical Exam Physical Exam: Constitutional: WD/WN, in NAD Eyes: conjunctivae rodrick l, anicteric scler ae ENMT: Ears: no external ear abnormality N ose: no external n ose abnormality Respiratory: normal respiratory effort, lungs travis ar to auscultation Cardiovascular: Rate/Rhythm: regul ar rhythm Vessels : normal periphera l pulses Extremit ies: no edema Gastrointestinal ( Abdomen): normal bowel sound s, soft, nontender Skin: no rashes, warm an d dry Neurologic: Patient looks at me when I talk to him. + not moving R arm or R leg Results & Data Results & Data Vital Signs (Past 12 Hours) Vital Signs Temp Pulse Pulse Resp BP Pulse Ox O2 Del Method 04/06/23 16:28 36.4 C L 71 18 162/90 H 95 Room Air 04/06/23 12:34 36.8 C 71 20 171/87 H 97 Room Air 04/06/23 07:27 36.4 C L 73 22 177/95 H 95 Room Air 04/06/23 07:21 81 Laboratory Results 04/06/23 Range/Units 06:51 WBC 9.34 (4.8-10.8) K/ul RBC 4.87 (4.70-6.10) M/uL Hgb 14.6 (14.0-18.0) g/dl Hct 42.5 (42.0-52.0) % MCV 87.3 (80.0-100.0) fL MCH 30.0 (25.0-34.0) pg MCHC 34.4 (32.0-36.0) g/dL RDW Std Deviation 44.1 (36.4-46.3) fL RDW Coeff of Dorothy 14.0 (11.5-14.5) % Plt Count 240 (130-400) K/uL MPV 8.4 L (9.4-12.4) fL Immature Gran % (Auto) 0.4 % Neut % (Auto) 70.6 % Lymph % (Auto) 15.2 % [place] % (Auto) 11.9 % Eos % (Auto) 1.5 % Baso % (Auto) 0.4 % Neut # (Auto) 6.59 H (1.40-6.50) K/uL Lymph # (Auto) 1.42 (1.20-3.40) K/uL [place] # (Auto) 1.11 H (0.11-0.59) K/uL Eos # (Auto) 0.14 (0.00-0.50) K/uL Baso # (Auto) 0.04 (0.00-0.20) K/uL Immature Gran # (Auto) 0.04 (0.01-0.20) K/uL Sodium 139 (136-145) mmol/L Potassium 3.9 (3.5-5.1) mmol/L Chloride 109 H (98-107) mmol/L Carbon Dioxide 24 (21-32) mmol/L Anion Gap 6 (3-11) BUN 16 (6-23) mg/dl Creatinine 1.04 (0.6-1.4) mg/dl Est Cr Clr Drug Dosing 49.1 ml/min Est GFR ( Amer) 75.0 ml/min Est GFR (Non-Af Amer) 64.7 ml/min BUN/Creatinine Ratio 15.4 (10-20) Glucose 109 H (70-99(Fasting)) mg/dl Calcium 8.6 (8.6-10.3) mg/dl Phosphorus 2.8 (2.5-4.9) mg/dl Magnesium 1.9 (1.7-2.4) mg/dl Medications Administered Current Inpatient Medications Amlodipine Besylate (Amlodipine Besylate 5 Mg Tab) 5 mg PO QAM [facility] Stop: 05/06/23 08:59 Last Admin: 04/06/23 09:26 Dose: 5 mg Aspirin (Aspirin 81 Mg Ectab) 81 mg PO DAILY [facility] Stop: 05/06/23 08:59 Last Admin: 04/06/23 10:54 Dose: 81 mg Atorvastatin Calcium (Atorvastatin 40 Mg Tab) 40 mg PO HS [facility] Stop: 05/05/23 20:59 Last Admin: 04/05/23 20:12 Dose: 40 mg Ciprofloxacin (Ciprofloxacin Hcl 0.3% Op Soln 2.5 Ml Btl) 1 drops OP BID [facility] Stop: 04/16/23 20:59 Potassium Chloride/Dextrose/Sod Cl (D5nss + 20meq Kcl) 20 meq in 1,000 mls @ 80 mls/hr IV .[id number] [facility]; Protocol Stop: 05/04/23 20:29 Last Admin: 04/06/23 16:41 Dose: 100 mls/hr Acetaminophen (Ofirmev) 1,000 mg in 100 mls @ 400 mls/hr IV Q8H [facility] Stop: 04/08/23 17:59 Last Infusion: 04/06/23 10:01 Dose: Infused Miscellaneous Information (Pharmacist Discharge Med Rec Consult) 1 each N/A UD PRN PRN Reason: Consult Stop: 05/04/23 19:21 (3) Hypertension Hypertension type: unspecified Qualified Code(s): I10 - Essential (primary) hypertension (4) CKD (chronic kidney disease), stage III Chronic kidney disease stage 3 subtype: unspecified whether 3a or 3b Qualified Code(s): N18.30 - Chronic kidney disease, stage 3 unspecified
--- NOTE | 2023-04-06 19:19 | CT Scan Report ---
CT OF THE HEAD WITHOUT CONTRAST CLINICAL HISTORY: CVA, now not moving R leg COMPARISON STUDY: Head CT, CTA of the head and MRI of the brain April 04, 2023. CT DOSE: 625.8 mGy.cm TECHNIQUE: Helical axial images of the head were obtained without IV contrast. Automated exposure con trol was utilized for the study. A dose lowering technique was utilized adhering to the principles o f ALARA. FINDINGS: No acute intracranial hemorrhage, midline shift or mass effect is present. Ventricular syst em is stable. Basal cisterns are patent. There are no extra-axial collections. Exam is mildly comprom ised by motion artifact. Described acute infarcts on prior CT and MRI are noted with expected evoluti on. These are most evident within the left parietal and occipital lobes. Hypodensity within the poste rior bilateral frontal lobes is more conspicuous than on prior CT and MRI. Although this could be art ifactual, the findings raise the possibility of increase in extent of the acute infarcts shown on pre vious MRI. IMPRESSION: 1. No acute intracranial hemorrhage. No significant mass effect. 2. Redemonstration of the acute infarcts shown on prior CT and MRI. These are most evident within the left parietal occipital lobes. 3. Hypodensity within the posterior bilateral frontal lobes which is more conspicuous than on prior C T. Although this could be artifactual, the findings raise the possibility of increase in extent of th e acute infarcts since previous MRI. ACT 112: Negative or not required by law. Electronically signed by: Farhat Pavon M.D. 04/06/2023 7:16 PM
[2023-04-06] MEDS: ATORVASTATIN 40 MG TAB PO SCH (20:19)
[2023-04-06] MEDS: CIPROFLOXACIN HCL 0.3% OP SOLN 2.5 ML BTL OP SCH (21:14)
--- NOTE | 2023-04-06 22:00 | Electrocardiogram Report ---
Test Reason : Blood Pressure : / mmHG Vent. Rate : 093 BPM Atrial Rate : 093 BPM P-R Int : 242 ms QRS Dur : 082 ms QT Int : 364 ms P-R-T Axes : 053 033 041 degrees QTc Int : 452 ms Sinus rhythm with 1st degree A-V block Low voltage QRS Nonspecific T wave abnormality When compared with ECG of 04-APR-2023 14:29, Premature atrial complexes are no longer Present Confirmed by Librado Velarde ([id number]) on 04/06/2023 10:00:27 PM Referred By: Michi Navarrete Confirmed By:Librado Velarde
--- NOTE | 2023-04-06 22:01 | Electrocardiogram Report ---
Test Reason : Blood Pressure : / mmHG Vent. Rate : 077 BPM Atrial Rate : 077 BPM P-R Int : 238 ms QRS Dur : 084 ms QT Int : 394 ms P-R-T Axes : 051 028 038 degrees QTc Int : 445 ms Sinus rhythm with 1st degree A-V block Low voltage QRS Nonspecific T wave abnormality When compared with ECG of 05-APR-2023 05:47, No significant change was found Confirmed by Librado Velarde ([id number]) on 04/06/2023 10:00:49 PM Referred By: Michi Navarrete Confirmed By:Librado Velarde
--- NOTE | 2023-04-06 23:22 | Palliative Care Consultation ---
Date of Consultation April 06, 2023 Assessment & Plan (1) Altered mental status: +extension of prior strokes, with significantly larger burden in the L hemisphere but again localized to the borderzone. Severe progression, rapid decline, this is not a curable or improvable situation Altered mental status type: stupor Qualified Code(s): R40.1 - Stupor (2) Weakness generalized: due to progression of strokes (3) Palliative care by specialist: Met with family at bedside: son Angel Fox and daughter in law Sloane. Both are nurses in [place]. I provided overview of Palliative Medicine, a subspecialty that provides specialized medical care for people living with a serious illness by offering a focus on quality of life. Palliative Medicine is often conflated with hospice: I advised patient/family that Palliative and hospice can be partners but we are not the same. It is important to understand the difference so that we may be informed, and not afraid. Palliative Medicine works to improve QOL through reduction of symptom burden/more control over their illness, for both the patient and family. Palliative medicine clinicians are board certified, specially-trained and another member of the patient's medical care team. We often provide an extra layer of support because our care is based on the needs of the patient, not the prognosis; as such, it's appropriate at any age/advancing stage of a serious illness and can be provided along with curative treatment. Palliative Medicine clinicians are also trained in advanced communication methodologies, to facilitate complex discussions about advanced illness planning, which are needed to help assure that the treatment choices match the patient's goals, aka delivering Goal Concordant care. Finally, we discussed that hospice is a visiting nurse service that focuses on care delivered at the very end of life for patients with terminal illness, with life expectancy less than 6 month. (4) Discussion about advance care planning held with family member: I met face to face with Angel Fox (son) and Sloane (dtr in law) at bedside for 60min, with their consent we reviewed pt medical issues since 03/29 admission for scattered subcentimeter casht-ek-hskefyfo-appearing infarcts within the cerebral hemispheres, within the bilateral centrum semiovale and superior frontal lobe cortices with a few additional punctate foci noted within the left parieto-occipital distribution. Current finding of +extension of prior strokes, with significantly larger burden in the L hemisphere but again localized to the borderzone.They have a great understanding of his issues, both are RNs in [place]. When they visited at [place], plan had been for pt to relocate to [place] with them, and be closer to his remaining sibling who resides in [facility]. Unfortunately he had a signif stroke which has now progressed. He is now non verbal and aphasic, unable to follow commands, agitated, severe aphasia, ++ overt aspiration Family would like to move to [facility]. They are aware these are no longer fixable or improvable situations. They tell me they are pursuing POA appointment and have consulted a hoarding clean up [place] for pt apartment which is unfortunately become a hoarding situation. Additionally pt has a large storage unit in an as yet unknown location which also needs clearing out. His descent into hoarding has become more pronounced in past few years, perhaps from mood/depression/loneliness and perhaps from declining cognitive health per son. Discussed changes pt may move through in the dying process including but not limited to sleeping more, disorientation when awake, restlessness, diminished senses/inability to respond to stimulus although ability to be aware of them remains intact longer, changes in body temperatures, skin changes/mottling/cyanosis, respiratory pattern changes, oral secretions. Family verbalized understanding. The goal is to assure a peaceful . They inquired about hospice. I provided education about the hospice benefit: an interdisciplinary program offered by nurses, nurses aides, social workers, chaplains and a medical technologist chemistry for patients with a terminal condition and a life expectancy of less than 6 months. This is covered by Medicare at 100%/no out of pocket expense to patient and all meds/supplies needed by patient for the reason they are on hospice are paid for/covered by hospice. The goal is assure quality of life of the patient in their home setting (home, jail, inpatient hospice setting) by providing symptoms management, psychosocial and spiritual support. However, they cannot offer 24 hours care and if the family is unable to provide that care, they will have to consider personal care with out of pocket cost vs. jail placement. We discussed the goals of hospice as a patient service and the goals of care; we discussed EOL trajectories and transitions alexis the emotional impact of realizing mortality as a concrete reality from prior abstract considerations. Pt was reassured that no matter where they are along this trajectory, they are not alone - their medical team will remain by their side through their journey. Discussed the pros/cons of accepting help when especially weakened and distressed by pain-which would also help provide relief/decrease caregiver burden/strain. We discussed the goals of hospice as a patient service and the goals of care; we discussed EOL trajectories and transitions alexis the emotional impact of realizing mortality as a concrete reality from prior abstract considerations. Pt was reassured that no matter where they are along this trajectory, they are not alone - their medical team will remain by their side through their journey. Discussed the pros/cons of accepting help when especially weakened and distressed by pain-which would also help provide relief/decrease caregiver burden/strain. We discussed there are no hospice inpatient units in this region. Plan would be SNF with LTC for comfort. They verbalized understanding and are in agreement. Care mgt notified/she will follow. Plan * Family meeting son/dtr in law, see ACP above * Patient is now [employer], orders written * Family would like DC to SNF for comfort care only. NO REHAB trial. Care mgt notified. * MDM: High Complexity - discussion of end of life and hospice care, management of air hunger and agitation, post stroke sequela and decline. * total time 135min Thank you for allowing us to participate in the ongoing care of this patient. Please don't hesitate to call or page with any additional concerns. Dr. Raeann Viveros DNP Director, Palliative Care History of Present Illness Reason for Consultation: "GOC, symptom mgt" Requesting Physician: Nate Kenny Attending Physician: Nate Kenny MD History of Present Illness Chart review indicates Angel Everett is an 87 yo M readmitted to [facility] from [facility] rehab on 04/04/23 with R sided weakness, aphasia and neglect. HIs prior admission was 03/29/23 thru 04/03/23. JACK SPINNER update today: " I saw him Sat with son present, he was able to swallow with no overt s/s of aspiration but very agitated and not interested in p.o. intake. Saw again Friday with significant change, overt s/s of aspiration on thins with refusal to accept puree. Talked to Dr. Courtney and decided to make NPO until family decides plan. I plan to see again today but unless he has increased alertness and decreased agitation he is not appropriate for video swallow study. Recommending permissive aspiration." Imaging during the 03/29/23 admission revealed the followin04/01/23, MR brain wo con: Scattered subcentimeter foci of restricted diffusion is noted within the centrum semiovale of the bilateral frontoparietal lobes and also within the superior frontal lobe cortices. There are additional subcentimeter foci noted within the left parieto-occipital distribution. These foci demonstrate intermediate signal on the ADC map. No acute intracranial hemorrhage, midline shift, intracranial mass, hydrocephalus, acute territorial infarct or abnormal extra-axial collection. Involutional changes with moderate white matter T2/FLAIR hyperintense foci suggestive of chronic microvascular ischemic disease. Midline structures are unremarkable and degenerative changes of the cervical spine. Partially empty sella. The calvarium is intact. Mastoid air cells are clear. Yxau-tm-bgjzfvah mucosal thickening of the paranasal sinuses appears chronic. Cerebral venous sinuses and major arterial flow voids appear patent. IMPRESSION: 1. Scattered subcentimeter edpjn-zg-smrfbiyt-appearing infarcts within the cerebral hemispheres, most pronounced within the bilateral centrum semiovale and superior frontal lobe cortices with a few additional punctate foci noted within the left parieto-occipital distribution. 2. No acute or subacute territorial infarct, midline shift, abnormal extra-axial collection, hydrocephalus or intracranial mass. 3. Involutional changes with moderate chronic microvascular ischemic disease. 04/01/23, CTA head wo/w [CT angio head wo/w]: FINDINGS: Right internal carotid artery: Mild calcified plaque at the cavernous internal carotid artery with intact distal runoff. 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 3 mm aneurysmal dilatation of the at the level of the origin of the posterior communicating artery which is otherwise not identified. Right anterior cerebral artery: Severe stenosis of proximal A2 segment with intact distal runoff. Multifocal additional stenoses without occlusion. No occlusion or significant stenosis. No aneurysm. Right middle cerebral artery: Multifocal stenoses without occlusion. No occlusion or significant stenosis. No aneurysm. Right posterior cerebral artery: Severe stenosis of the proximal segment without a significant patent posterior communicating artery present. Multifocal more distal stenoses without occlusion. No occlusion or significant stenosis. No aneurysm. Right vertebral artery: Mild irregularity without occlusion. Left internal carotid artery: No Mild calcified plaque at the cavernous internal carotid artery with intact distal runoff. No aneurysm. Left anterior cerebral artery: Multifocal stenoses without occlusion. No occlusion or significant stenosis. No aneurysm. Left middle cerebral artery: Multifocal stenoses without occlusion. No occlusion or significant stenosis. No aneurysm. Left posterior cerebral artery: Multifocal stenoses without occlusion. No occlusion or significant stenosis. No aneurysm. Left vertebral artery: Unremarkable as visualized. Basilar artery: Unremarkable. No occlusion or significant stenosis. No aneurysm. IMPRESSION: No large vessel occlusion. Multifocal stenoses without occlusion involving the bilateral internal carotid arteries, bilateral middle and anterior cerebral arteries and bilateral posterior cerebral arteries. 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 High-grade stenoses of the proximal P1 segment of the right posterior cerebral artery and mid right anterior cerebral artery with intact distal runoff. Considerations include vasospasm or vasculitis as well as noncalcified plaque. CTA neck with con [CT angio neck with con: VASCULATURE: Right common carotid artery: Unremarkable. No occlusion or significant stenosis. No dissection. Right internal carotid artery:Mild calcified plaque at the right carotid bulb without a hemodynamically significant stenosis. Tortuous. No dissection. Right external carotid artery: Unremarkable. No occlusion. Right vertebral artery: Unremarkable. No occlusion or significant stenosis. No dissection. Left common carotid artery: Unremarkable. No occlusion or significant s tenosis. No dissection. Left internal carotid artery: Moderate proximately 50% diameter calcified plaque at the left carotid bulb without a hemodynamically significant stenosis. Tortuous. No dissection. Left external carotid artery: Unremarkable. No occlusion. Left vertebral artery: Unremarkable. No occlusion or significant stenosis. No dissection. NECK: Bones/joints: Degenerative changes of the spine. No acute fracture. Soft tissues: Unremarkable. Lung apices: Clear. CAROTID STENOSIS REFERENCE USING NASCET CRITERIA: % ICA stenosis = (1 - narrowest ICA diameter/diameter of distalcervical ICA) x 100. Mild - <50% stenosis. Moderate - 50-69% stenosis. Severe - 70-94% stenosis. Near occlusion - 95-99% stenosis. Occluded - 100% stenosis. IMPRESSION: Left greater than right calcified plaque at the bilateral carotid bulbs. without a hemodynamically significant stenosis. MRI brain: 1. Scattered subcentimeter jfmoj-xs-gnczuhrx-appearing infarcts within the cerebral hemispheres, most pronounced within the bilateral centrum semiovale and superior frontal lobe cortices with a few additional punctate foci noted within the left parieto-occipital distribution. 2. No acute or subacute territorial infarct, midline shift, abnormal extra-axial collection, hydrocephalus or intracranial mass. 3. Involutional changes with moderate chronic microvascular ischemic disease. At time of [facility] dc, pt was noted to be alert and interactive. Son reported to neuro "after he got to rehab he had an acute change which has been persistent" At time of admission, Mr Everett was noted to be restless and difficult to arouse/lethargic. This has improved per today's noted a little bit. It is noted he had no reported hypotension or syncope while at rehab. This admission, Brain MRI shows +extension of prior strokes, with significantly larger burden in the L hemisphere but again localized to the borderzone. Neuro noted that "While cardioembolism with a second shower of emboli is possible, I personally feel that it is less likely as there are no strokes throughout the posterior circulation. However, unclear why patient would have extended his strokes despite no hypotension at rehab." Dr. Chris's neurology consult states:"Patient presents back with worsening of his stroke deficits secondary to extension of his prior infarcts. Reviewing the initial history, patient was found down at home and stroke burden localized to the borderzone/watershed territory. This region is also typical for cardioembolism and therefore we recommended zio patch despite normal echo (TTE). Now, the MRI shows extension of the prior strokes, with much larger burden in the L hemisphere but again localized to the borderzone. While cardioembolism with a second shower of emboli is possible, I personally feel that it is less likely as there are no strokes throughout the posterior circulation. However, unclear why patient would have extended his strokes despite no hypotension at rehab. Appreciate cardiology opinion on the need and risk/benefit of DAILY in this context. Empiric anticoagulation is otherwise not indicated, patient can remain on aspirin. I am otherwise concerned about his overall prognosis given his age and severity of his stroke deficits." Palliative Medicine has been consulted for "goals of care and symptom mgt." Patient is not decisional. Allergies Allergy/AdvReac Type Severity Reaction Status Date / Time No Known Allergies Allergy Unverified 03/29/23 20:25 Home Medications Medication Instructions Recorded Confirmed Type aspirin 81 mg tablet,delayed 81 mg PO DAILY 03/29/23 04/04/23 History release cholecalciferol (vitamin D3) 25 25 mcg PO DAILY 03/29/23 04/04/23 History mcg (1,000 unit) capsule multivitamin with minerals 1 tab PO DAILY 03/29/23 04/04/23 History (Multiple Vitamin-Minerals tablet) amlodipine 5 mg tablet (Norvasc) 5 mg PO QPM #30 tabs 03/31/23 04/04/23 Rx atorvastatin 40 mg tablet 40 mg PO HS #30 tabs 04/03/23 04/04/23 Rx Patient History Medical History HLD (hyperlipidemia) CVA (cerebral vascular accident) CKD (chronic kidney disease), stage III Social History Smoking Status: Never smoker Hx Alcohol Use: No Hx Substance Use: No Preferred Language: Hebrew Communication Ability: Effective Film Processor Required: Yes Beliefs That Will Affect Care: None Current Living Situation: Alone Feels Safe at Home: Yes Assistive Devices: None Review of Systems Review of Systems: Unobtainable due to cognitive status and Unobtainable due to reduced consciousness Physical Exam Constitutional: + ill appearing, average body habitus, + altered mental status, + frail appearing, + disheveled, + in distress, + diaphoretic and + lethargic Eyes: + eyes dysmorphic ENMT: Mouth: + dry oral mucous membranes and + poor dentition Neck: normal visual inspection and trachea midline Respiratory: + labored breathing and + uses accessory muscles Cardiovascular: Rate/Rhythm: + tachycardic Gastrointestinal (Abdomen): Inspection/Auscultation: + abdomen distended and normal bowel sounds Musculoskeletal: GEN WEAKNESS Skin: diaphoretic, pale Neurologic: lethargic, non verbal with me unable to follow commands Results & Data Vital Signs (Past 12 Hours) Vital Signs Temp Pulse Pulse Resp BP Pulse Ox O2 Del Method 04/06/23 18:58 36.3 C L 69 18 169/92 H 95 Room Air 04/06/23 18:50 76 04/06/23 16:28 36.4 C L 71 18 162/90 H 95 Room Air 04/06/23 12:34 36.8 C 71 20 171/87 H 97 Room Air Laboratory Results see HPI, data reviewed Diagnostic Findings See HPI, data reviewed PG Care Time/CCT Total # of Minutes Spent Total Time Spent: 135 Total Time Spent with Patient: Total time spent is greater than 50% in coordination of care (as documented) at patient's floor/unit and/or counseling patient: I spent 135 minutes overall addressing this case: 20 min in medical data review/discussion with referring provider(s) and/or preparation for the visit 20 min in direct interaction with the patient/exam 60 min in Advance Care Planning/Goals of Care discussions as detailed above in note (must be >16min) 15 min in subsequent review and synthesis of assessment and plan 20 min communicating with other providers regarding the patient's case: nursing, care mgt, primary team, speech Advanced Care Planning 70663 Advanced Care Planning 30 Min 13053 Advanced Care Planning Additional 30 [place] [address] IN/OBS CONSULT LVL 5,80M Patient Type New History Comprehensive Exam Comprehensive Medical Decision Making High Complexity Diagnoses Stupor R40.1 Altered mental status type: stupor Weakness generalized R53.1 Palliative care by specialist Z51.5 Discussion about advance care planning held with family member Z71.0 Additional Codes Advanced Care Planning - 85030 Advanced Care Planning 30 Min: 02735 Advanced Care Planning 30 Min ([id number]) Advanced Care Planning - 46051 Advanced Care Planning Additional 30 Min: 69654 Advanced Care Planning Additional 30 Min ([id number])
[2023-04-07] MEDS: ACETAMINOPHEN 1,000 MG/100 ML VIAL IV SCH ×2 (01:17→10:52)
[2023-04-07] MEDS: D5NSS + 20MEQ KCL 20 MEQ/1,000 ML BAG IV SCH (03:53)
--- NOTE | 2023-04-07 07:56 | Pharmacy Report ---
- Date of Service April 07, 2023 - Pharmacy CVA/TIA Medication Review Medications to Prevent Stroke handout has been added to the patients discharge packet. Antiplatelet(s) * Aspirin 81 mg PO daily Cholesterol * High intensity statin: atorvastatin 40 mg daily DVT Prophylaxis * SCD knee Therapeutic Anticoagulation * No history of Afib/Aflutter noted Type 2 Diabetes * Patient does not have T2DM
[2023-04-07] MEDS ORDERED: ASPIRIN 300 MG SUPP PR ONE (08:30)
[2023-04-07 08:37] LABS: Basophils # (auto) 0.06 K/uL (0.00-0.20); Basophils % (auto) 0.7 %; Eosinophils # (auto) 0.21 K/uL (0.00-0.50); Eosinophils % (auto) 2.5 %; Hematocrit (blood only) 39.3 % (42.0-52.0); Hemoglobin 13.8 g/dl (14.0-18.0); Immature Granulocytes % (auto) 1.2 %; Lymphocytes # (auto) 1.64 K/uL (1.20-3.40); Lymphocytes % (auto) 19.8 %; Mean Corpuscular Hemoglobin 30.1 pg (25.0-34.0); Mean Corpuscular Hgb Conc 35.1 g/dL (32.0-36.0); Mean Corpuscular Volume 85.8 fL (80.0-100.0); Mean Platelet Volume 8.8 fL (9.4-12.4); Monocytes # (auto) 0.82 K/uL (0.11-0.59); Monocytes % (auto) 9.9 %; Neutrophils # (auto) 5.45 K/uL (1.40-6.50); Neutrophils % (auto) 65.9 %; Platelet Count 233 K/uL (130-400); RDW Coefficient of Variation 14.1 % (11.5-14.5); RDW Standard Deviation 43.8 fL (36.4-46.3); Red Blood Count 4.58 M/uL (4.70-6.10); White Blood Count 8.28 K/ul (4.8-10.8)
[2023-04-07 08:49] LABS: BUN Creatinine Ratio 13.8 (10-20); Calcium 8.2 mg/dl (8.6-10.3); Creatinine Clr Calc Pharmacy 53.8 ml/min; Est GFR (African American) 84.7 ml/min; Est GFR (Non-African American) 73.1 ml/min; Magnesium 1.8 mg/dl (1.7-2.4); Phosphorus 2.8 mg/dl (2.5-4.9); Potassium 3.8 mmol/L (3.5-5.1)
[2023-04-07] MEDS: ASPIRIN 81 MG ECTAB PO SCH (09:41)
[2023-04-07] MEDS: amLODIPine BESYLATE 5 MG TAB PO SCH (09:41)
[2023-04-07] MEDS: CIPROFLOXACIN HCL 0.3% OP SOLN 2.5 ML BTL OP SCH ×2 (09:42→20:09)
[2023-04-07] MEDS ORDERED: GLYCOPYRROLATE 0.2 MG/ML VIAL IV PRN (13:13)
[2023-04-07] MEDS ORDERED: LORazepam 1 MG in SYRINGE 0.5 ML IV PRN (13:13)
[2023-04-07] MEDS ORDERED: HYDROmorphone INJ 0.5 MG/0.5 ML SYR IV PRN (13:13)
[2023-04-07] MEDS: OLANZapine ZYDIS 5 MG ORALLY DIS. TAB PO SCH (20:09)
[2023-04-08] MEDS: CIPROFLOXACIN HCL 0.3% OP SOLN 2.5 ML BTL OP SCH ×2 (08:26→19:46)
[2023-04-08] MEDS: OLANZapine ZYDIS 5 MG ORALLY DIS. TAB PO SCH ×2 (08:26→19:46)
--- NOTE | 2023-04-08 12:51 | Hospitalist Progress Note ---
Date of Service April 07, 2023 (late entry) Assessment & Plan (1) Acute CVA (cerebrovascular accident): (2) Aphasia: Plan: Admitted to telemetry Patient presenting from [facility] for evaluation of garbled speech and altered mental status. Recently admitted to [facility] 03/29 through 04/03 for acute CVA and patient was discharged to [facility] for rehab. Case discussed with neurology Dr. Chris via tigertext on admission Repeat brain MRI obtained - 1. There are numerous foci of acute to subacute ischemia seen bilaterally across vascular territories, with the largest foci seen in the left parietal and occipital lobes. The appearance favors an embolic phenomenon. 2. There is no hemorrhage or mass effect. Continue ASA (will give rectally until able to take p.o.), no indication for DAPT or permissive hypertension at this time Resume statin once taking p.o. Cardiology consult due to concerns of cardioembolic CVA 04/05 Per neurology - Patient presents back with worsening of his stroke deficits secondary to ext ension of his prior infarcts. Reviewing the initial history, patient was found down at home and stroke burden localized to the borderzone/watershed territory. This region is also typical for cardioembolism and therefore we recommended zio patch despite normal echo (TTE). Now, the MRI shows extension of the prior strokes, with much larger burden in the L hemisphere but again localized to the borderzone. While cardioembolism with a second shower of emboli is possible, I personally feel that it is less likely as there are no strokes throughout the posterior circulation. However, unclear why patient would have extended his strokes despite no hypotension at rehab. Appreciate cardiology opinion on the need and risk/benefit of DAILY in this context. Empiric anticoagulation is otherwise not indicated, patient can remain on aspirin. I am otherwise concerned about his overall prognosis given his age and severity of his stroke deficits. -- Cardiology input appreciated re: DAILY/cardioembolism -- Continue aspirin and statin -- Continue therapy evals 04/05 Per cardiology - -Patient with presentation for change in mental status, confusion, somnolence, unable to articulate. 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 They were in both cerebral hemispheres. Telemetry reviewed and reveals sinus rhythm without evidence of atrial fibri llation. Previous echocardiogram performed 03/30/2023 reviewed and the images were reviewed independently revealing sinus rhythm with subtle hypokinesis of the basal inferior/posterior segments and otherwise normal wall motion, with LVEF in the range of 50-55%. Mild aortic valve sclerosis without stenosis. Aortic regurgitation. Obtaining blood cultures to exclude occult infection subacute bacterial endocarditis could present with embolic phenomenon. Patient was reportedly on aspirin at the time of his initial presentation over a week ago, and has been maintained on aspirin therapy in the meantime and now. He received aspirin per rectum most recently due to inability to take oral medication. Cardiology input requested with regards evaluation with transesophageal echocardiogram for further evaluation of possible cause of embolic strokes. At present, it is felt that the risk of sedation in this particular case would outweigh the benefits obtained from obtaining the information, but this will be reassessed this hospitalization develops. Continue telemetry monitoring to evaluate for occult atrial fibrillation. Blood cultx obtained - pending 04/06/2023 - Pt not moving R arm or R leg. Looks at me when I talk to him. Difficulty taking meds today. Discussed w/ neurology and pt's family. CT head repeated - 1. No acute intracranial hemorrhage. No significant mass effect. 2. Re-demonstration of the acute infarcts shown on prior CT and MRI. These are most evident within the left parietal occipital lobes. 3. Hypodensity within the posterior bilateral frontal lobes which is more conspicuous than on prior CT. 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 Neurology reviewed images - expected evolution of CVA Palliative medicine also consulted 04/07/2023 - Family meeting with palliative medicine today. Decided for comfort care measures. Orders adjusted. (3) Hypertension: Plan: BP elevated, received labetalol, hydralazine - resumed amlodipine but now pt has difficulty swallowing Pt made comfort care (4) CKD (chronic kidney disease), stage III: (5) Acute metabolic encephalopathy: Admission and Anticipated Discharge Date Admission Date: April 04, 2023 Subjective Pt seen in follow up of CVA Recently admitted with CVA and discharged to rehab. in rehab unfortunately he had significant change in status. Now having difficulty swallowing, not moving R arm or R leg, looks at me when talking to him. Neurology (Dr. Chris) and cardiology initially consulted. Today met w/ pt's son his and palliative med - Steven Viveros at the bedside. They were updated and discussed the clinical scenario in detail. They wish to change to comfort care measures. Review of Systems Review of Systems: Unobtainable due to cognitive status Physical Exam Physical Exam: Constitutional: WD/WN, in NAD Eyes: anicteric sclerae ENMT: Ears: no external ear abnormality N ose: no external n ose abnormality Respiratory: normal respiratory effort, lungs travis ar to auscultation Cardiovascular: Rate/Rhythm: regul ar rhythm Vessels : normal periphera l pulses Extremit ies: no edema Gastrointestinal ( Abdomen): normal bowel sound s, soft, nontender Skin: no rashes, warm an d dry Neurologic: Patient looks at me when I talk to him. + not moving R arm or R leg Results & Data Results & Data Vital Signs (Past 12 Hours) Vital Signs O2 Del Method 04/08/23 10:17 Room Air (3) Hypertension Hypertension type: unspecified Qualified Code(s): I10 - Essential (primary) hypertension (4) CKD (chronic kidney disease), stage III Chronic kidney disease stage 3 subtype: unspecified whether 3a or 3b Qualified Code(s): N18.30 - Chronic kidney disease, stage 3 unspecified
[2023-04-09] MEDS: OLANZapine ZYDIS 5 MG ORALLY DIS. TAB PO SCH ×2 (08:46→21:38)
[2023-04-09] MEDS: CIPROFLOXACIN HCL 0.3% OP SOLN 2.5 ML BTL OP SCH ×2 (08:46→21:38)
--- NOTE | 2023-04-09 11:59 | Hospitalist Progress Note ---
Date of Service April 08, 2023 Assessment & Plan (1) Acute CVA (cerebrovascular accident): (2) Aphasia: Plan: Admitted to telemetry Patient presenting from [facility] for evaluation of garbled speech and altered mental status. Recently admitted to [facility] 03/29 through 04/03 for acute CVA and patient was discharged to [facility] for rehab. Case discussed with neurology Dr. Chris via tigertext on admission Repeat brain MRI obtained - 1. There are numerous foci of acute to subacute ischemia seen bilaterally across vascular territories, with the largest foci seen in the left parietal and occipital lobes. The appearance favors an embolic phenomenon. 2. There is no hemorrhage or mass effect. Continue ASA (will give rectally until able to take p.o.), no indication for DAPT or permissive hypertension at this time Resume statin once taking p.o. Cardiology consult due to concerns of cardioembolic CVA 04/05 Per neurology - Patient presents back with worsening of his stroke deficits secondary to extension of his prior infarcts. Reviewing the initial history, patient was found down at home and stroke burden localized to the borderzone/watershed territory. This region is also typical for cardioembolism and therefore we recommended zio patch despite normal echo (TTE). Now, the MRI shows extension of the prior strokes, with much larger burden in the L hemisphere but again localized to the borderzone. While cardioembolism with a second shower of emboli is possible, I personally feel that it is less likely as there are no strokes throughout the posterior circulation. However, unclear why patient would have extended his strokes despite no hypotension at rehab. Appreciate cardiology opinion on the need and risk/benefit of DAILY in this context. Empiric anticoagulation is otherwise not indicated, patient can remain on aspirin. I am otherwise concerned about his overall prognosis given his age and severity of his stroke deficits. -- Cardiology input appreciated re: DAILY/cardioembolism -- Continue aspirin and statin -- Continue therapy evals 04/05 Per cardiology - -Patient with presentation for change in mental status, confusion, somnolence, unable to articulate. 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 They were in both cerebral hemispheres. Telemetry reviewed and reveals sinus rhythm without evidence of atrial fibrillation. Previous echocardiogram performed 03/30/2023 reviewed and the images were reviewed independently revealing sinus rhythm with subtle hypokinesis of the basal inferior/posterior segments and otherwise normal wall motion, with LVEF in the range of 50-55%. Mild aortic valve sclerosis without stenosis. Aortic regurgitation. Obtaining blood cultures to exclude occult infection subacute bacterial endocarditis could present with embolic phenomenon. Patient was reportedly on aspirin at the time of his initial presentation over a week ago, and has been maintained on aspirin therapy in the meantime and now. He received aspirin per rectum most recently due to inability to take oral medication. Cardiology input requested with regards evaluation with transesophageal echocard iogram for further evaluation of possible cause of embolic strokes. At present, it is felt that the risk of sedation in this particular case would outweigh the benefits obtained from obtaining the information, but this will be reassessed this hospitalization develops. Continue telemetry monitoring to evaluate for occult atrial fibrillation. Blood cultx obtained - pending 04/06/2023 - Pt not moving R arm or R leg. Looks at me when I talk to him. Difficulty taking meds today. Discussed w/ neurology and pt's family. CT head repeated - 1. No acute intracranial hemorrhage. No significant mass effect. 2. Re-demonstration of the acute infarcts shown on prior CT and MRI. These are most evident within the left parietal occipital lobes. 3. Hypodensity within the posterior bilateral frontal lobes which is more conspicuous than on prior CT. 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 Neurology reviewed images - expected evolution of CVA Palliative medicine also consulted 04/07/2023 - Family meeting with palliative medicine today. Decided for comfort care measures. Orders adjusted. 04/08 Pt appears comfortable. Able to say "yes" and "no" when talking to him, otherwise unchanged from previous. (3) Hypertension: Plan: BP elevated, received labetalol, hydralazine - resumed amlodipine but now pt has difficulty swallowing Pt made comfort care (4) CKD (chronic kidney disease), stage III: (5) Acute metabolic encephalopathy: Admission and Anticipated Discharge Date Admission Date: April 04, 2023 Subjective Pt seen in follow up of CVA Recently admitted with CVA and discharged to rehab. in rehab unfortunately he had significant change in status. Now having difficulty swallowing, not moving R arm or R leg, looks at me when talking to him. Neurology (Dr. Chris) and cardiology initially consulted. Yesterday met w/ pt's son his and palliative med- pt status was changed to comfort care measures. Review of Systems Review of Systems: Unobtainable due to cognitive status Physical Exam Physical Exam: Constitutional: WD/WN, in NAD Eyes: anicteric sclerae ENMT: Ears: no external ear abnormality N ose: no external n ose abnormality Respiratory: normal respiratory effort, lungs travis ar to auscultation Cardiovascular: Rate/Rhythm: regul ar rhythm Vessels : normal periphera l pulses Extremit ies: no edema Gastrointestinal ( Abdomen): normal bowel sound s, soft, nontender Skin: no rashes, warm an d dry Neurologic: Patient looks at me when I talk to him. + not moving R arm or R leg (3) Hypertension Hypertension type: unspecified Qualified Code(s): I10 - Essential (primary) hypertension (4) CKD (chronic kidney disease), stage III Chronic kidney disease stage 3 subtype: unspecified whether 3a or 3b Qualified Code(s): N18.30 - Chronic kidney disease, stage 3 unspecified
--- NOTE | 2023-04-09 11:59 | Hospitalist Progress Note ---
Date of Service April 09, 2023 Assessment & Plan (1) Acute CVA (cerebrovascular accident): (2) Aphasia: Plan: Admitted to telemetry Patient presenting from [facility] for evaluation of garbled speech and altered mental status. Recently admitted to [facility] 03/29 through 04/03 for acute CVA and patient was discharged to [facility] for rehab. Case discussed with neurology Dr. Chris via tigertext on admission Repeat brain MRI obtained - 1. There are numerous foci of acute to subacute ischemia seen bilaterally across vascular territories, with the largest foci seen in the left parietal and occipital lobes. The appearance favors an embolic phenomenon. 2. There is no hemorrhage or mass effect. Continue ASA (will give rectally until able to take p.o.), no indication for DAPT or permissive hypertension at this time Resume statin once taking p.o. Cardiology consult due to concerns of cardioembolic CVA 04/05 Per neurology - Patient presents back with worsening of his stroke deficits secondary to extension of his prior infarcts. Reviewing the initial history, patient was found down at home and stroke burden localized to the borderzone/watershed territory. This region is also typical for cardioembolism and therefore we recommended zio patch despite normal echo (TTE). Now, the MRI shows extension of the prior strokes, with much larger burden in the L hemisphere but again localized to the borderzone. While cardioembolism with a second shower of emboli is possible, I personally feel that it is less likely as there are no strokes throughout the posterior circulation. However, unclear why patient would have extended his strokes despite no hypotension at rehab. Appreciate cardiology opinion on the need and risk/benefit of DAILY in this context. Empiric anticoagulation is otherwise not indicated, patient can remain on aspirin. I am otherwise concerned about his overall prognosis given his age and severity of his stroke deficits. -- Cardiology input appreciated re: DAILY/cardioembolism -- Continue aspirin and statin -- Continue therapy evals 04/05 Per cardiology - -Patient with presentation for change in mental status, confusion, somnolence, unable to articulate. 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 They were in both cerebral hemispheres. Telemetry reviewed and reveals sinus rhythm without evidence of atrial fibrillation. Previous echocardiogram performed 03/30/2023 reviewed and the images were reviewed independently revealing sinus rhythm with subtle hypokinesis of the basal inferior/posterior segments and otherwise normal wall motion, with LVEF in the range of 50-55%. Mild aortic valve sclerosis without stenosis. Aortic regurgitation. Obtaining blood cultures to exclude occult infection subacute bacterial endocarditis could present with embolic phenomenon. Patient was reportedly on aspirin at the time of his initial presentation over a week ago, and has been maintained on aspirin therapy in the meantime and now. He received aspirin per rectum most recently due to inability to take oral medication. Cardiology input requested with regards evaluation with transesophageal echocard iogram for further evaluation of possible cause of embolic strokes. At present, it is felt that the risk of sedation in this particular case would outweigh the benefits obtained from obtaining the information, but this will be reassessed this hospitalization develops. Continue telemetry monitoring to evaluate for occult atrial fibrillation. Blood cultx obtained - negat. for 48 hrs 04/06/2023 - Pt not moving R arm or R leg. Looks at me when I talk to him. Difficulty taking meds today. Discussed w/ neurology and pt's family. CT head repeated - 1. No acute intracranial hemorrhage. No significant mass effect. 2. Re-demonstration of the acute infarcts shown on prior CT and MRI. These are most evident within the left parietal occipital lobes. 3. Hypodensity within the posterior bilateral frontal lobes which is more conspicuous than on prior CT. 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 Neurology reviewed images - expected evolution of CVA Palliative medicine also consulted 04/07/2023 - Family meeting with palliative medicine today. Decided for comfort care measures. Orders adjusted. 04/08 Pt appears comfortable. Able to say "yes" and "no" when talking to him, otherwise unchanged from previous. 04/09 Today sleeping , appears comfortable, not responding to voice or touch. (3) Hypertension: Plan: BP elevated, received labetalol, hydralazine - resumed amlodipine but now pt has difficulty swallowing Pt made comfort care (4) CKD (chronic kidney disease), stage III: (5) Acute metabolic encephalopathy: Admission and Anticipated Discharge Date Admission Date: April 04, 2023 Subjective Pt seen in follow up of CVA Recently admitted with CVA and discharged to rehab. in rehab unfortunately he had significant change in status. Now having difficulty swallowing, not moving R arm or R leg. Neurology consulted. Palliative med consulted and pt's status was changed to comfort care measures. Today pt is sleeping soundly, appears comfortable. Not responding to voice or touch today for me. Review of Systems Review of Systems: Unobtainable due to cognitive status Physical Exam Physical Exam: Constitutional: WD/WN, in NAD Eyes: anicteric sclerae ENMT: Ears: no external ear abnormality N ose: no external n ose abnormality Respiratory: normal respiratory effort, lungs travis ar to auscultation Cardiovascular: Rate/Rhythm: regul ar rhythm Vessels : normal periphera l pulses Extremit ies: no edema Gastrointestinal ( Abdomen): normal bowel sound s, soft, nontender Skin: no rashes, warm an d dry Neurologic: sleeping, not res ponding to voice o r touch today, + n ot moving R arm or R leg (3) Hypertension Hypertension type: unspecified Qualified Code(s): I10 - Essential (primary) hypertension (4) CKD (chronic kidney disease), stage III Chronic kidney disease stage 3 subtype: unspecified whether 3a or 3b Qualified Code(s): N18.30 - Chronic kidney disease, stage 3 unspecified
--- NOTE | 2023-04-09 15:37 | Palliative Care Progress Note ---
Date of Service April 09, 2023 Assessment & Plan (1) Weakness generalized: (2) Altered mental status: (3) Aphasia: (4) Palliative care by specialist: Plan * Mr Everett is not decisional. He is occasionally alert to self but not place or time, cannot follow commands, cannot answer simple yes/no questions. He does not have decisional capacity and surrogate decision making is required. His son is his Designated SDM. * MDM: moderate complexity, determinations for decisional capacity Thank you for allowing us to participate in the ongoing care of this patient. Please don't hesitate to call or page with any additional concerns. Dr. Raeann Viveros DNP Director, Palliative Care Admission and Anticipated Discharge Date Admission Date: April 04, 2023 Subjective remains on [employer] awaiting placement family working on guardianship pt alert to self at times, otherwise cannot provide HIP, place or time unable to follow commands Review of Systems Review of Systems: Unobtainable due to cognitive status Physical Exam 2 Physical Exam: Stroke related confusion opens eyes to name does not track cannot answer simple yes/no questions for me unable to follow commands diaphoretic at times right hemiplegia and weakness PG Care Time/CCT Total # of Minutes Spent Total Time Spent: 55 Total Time Spent with Patient: Total time spent is greater than 50% in coordination of care (as documented) at patient's floor/unit and/or counseling patient: I spent 55 minutes overall addressing this case: 10 min in medical data review/discussion with referring provider(s) and/or preparation for the visit 15 min in direct interaction with the patient/exam 00 min in Advance Care Planning/Goals of Care discussions as detailed above in note (must be >16min) 15 min in subsequent review and synthesis of assessment and plan 15 min communicating with other providers regarding the patient's case: [place] [address] SUB INP/OBS CARE 3/50MIN Patient Type Established History Comprehensive Exam Detailed Medical Decision Making Moderate Complexity Diagnoses Weakness generalized R53.1 Stupor R40.1 Altered mental status type: stupor Aphasia R47.01 Palliative care by specialist Z51.5 (2) Altered mental status Altered mental status type: stupor Qualified Code(s): R40.1 - Stupor
--- NOTE | 2023-04-09 18:51 | Psychiatric Consultation ---
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 In terms of his capacity, whether he perhaps has a greater degree of understanding than he is able to express is moot because he can't make any such putative understanding known. Mr. Everett lacks the capacity to make rational and informed medical decisions and to express his wishes about them. Substituted judgment from a surrogate will need to be obtained and Mr. Everett prior to this extension of his CVA unambiguously expressed that he would want his son to fill that role. Overall I spent a total of 43 minutes on the floor for this consultation assessment including review of chart records, review of test results, direct evaluation of the patient [id number], risk assessment, discussion with the psychiatric liaison nurse, and documentation in the electronic health record. (1) Encounter for assessment of healthcare decision-making capacity: Psych History Identifying Data TONY EVERETT is a 87-year-old M with a history of CVA, admitted on 04/04/2023 for extension of CVA. Consult is by the hospitalist service for "capacity re-aval after CVA". Chief Complaint Does not speak during my exam History of Present Illness When I evaluated Mr. Everett on 04/02/2023, it was my opinion that at that time he had the capacity to make medical decision, if perhaps only barely. I also recommended that he execute a DPOAH right away because it seemed likely his capacity would diminish. He was discharged the following day, and readmitted the day after that. Currently he appears to have both receptive and expressive aphasia. I was not a ble to get him to express any sort of yes/no signals at all. He's not very alert and he doesn't respond to questions or directions. He does not respond when I say his name nor does he appear to be oriented to place or time. Allergies Allergy/AdvReac Type Severity Reaction Status Date / Time No Known Allergies Allergy Unverified 03/29/23 20:25 Home Medications Medication Instructions Recorded Confirmed Type aspirin 81 mg tablet,delayed 81 mg PO DAILY 03/29/23 04/04/23 History release cholecalciferol (vitamin D3) 25 25 mcg PO DAILY 03/29/23 04/04/23 History mcg (1,000 unit) capsule multivitamin with minerals 1 tab PO DAILY 03/29/23 04/04/23 History (Multiple Vitamin-Minerals tablet) amlodipine 5 mg tablet (Norvasc) 5 mg PO QPM #30 tabs 03/31/23 04/04/23 Rx atorvastatin 40 mg tablet 40 mg PO HS #30 tabs 04/03/23 04/04/23 Rx Patient History Medical History (Updated 04/09/23 @ 19:02 by Michi Hanna MD) Encounter for assessment of healthcare decision-making capacity HLD (hyperlipidemia) CVA (cerebral vascular accident) CKD (chronic kidney disease), stage III Social History Smoking Status: Never smoker Hx Alcohol Use: No Hx Substance Use: No Preferred Language: [place] Communication Ability: Unable Teletype Operator Required: Yes Beliefs That Will Affect Care: None Current Living Situation: Alone Feels Safe at Home: Yes Assistive Devices: None Physical Exam Psychiatric: Poorly responsive with no response to questions or directions, making it impossible to assess his thought content or processes Vital Signs (Past 24 Hours): Last Vital Signs Temp 36.4 C L 04/07/23 10:51 Pulse 68 04/07/23 13:13 Resp 19 04/07/23 10:51 BP 169/91 H 04/07/23 10:51 Pulse Ox 96 04/07/23 10:51 O2 Del Method Room Air 04/08/23 19:50 Results & Data (PSY) Medications Administered Ciprofloxacin (Ciprofloxacin Hcl 0.3% Op Soln 2.5 Ml Btl) 1 drops OP BID [facility] Stop: 04/16/23 20:59 Last Admin: 04/09/23 08:46 Dose: 1 drops Documented By: Admin: 04/08/23 19:46 Dose: 1 drops Documented By: Admin: 04/08/23 08:26 Dose: 1 drops Documented By: Admin: 04/07/23 20:09 Dose: 1 drops Documented By: Admin: 04/07/23 09:42 Dose: 1 drops Documented By: Admin: 04/06/23 21:14 Dose: 1 drops Documented By: CHERYL Glycopyrrolate (Glycopyrrolate 0.2 Mg/Ml Vial) 0.4 mg IV Q4H PRN PRN Reason: Secretions or Pulm Congestion Stop: 05/07/23 13:12 Last Admin: 04/08/23 16:50 Dose: 0.4 mg Documented By: ODILIA Olanzapine (Olanzapine Zydis 5 Mg Orally Dis. Tab) 5 mg PO BID [facility] Stop: 05/07/23 20:59 Last Admin: 04/09/23 08:46 Dose: 5 mg Documented By: Admin: 04/08/23 19:46 Dose: 5 mg Documented By: Admin: 04/08/23 08:26 Dose: 5 mg Documented By: Admin: 04/07/23 20:09 Dose: 5 mg Documented By: CHERYL Coding Level of Care Code 76126 U Intl Hosp Care Lvl 2 Diagnoses Encounter for assessment of healthcare decision-making capacity Z02.79 Time Spent (min) 43
[2023-04-09] MEDS ORDERED: SODIUM CHLORIDE 0.65% NA SOLN 45 ML (OCEAN) PRN (22:04)
[2023-04-09] MEDS ORDERED: SODIUM CHLORIDE 0.65% NA SOLN 45 ML (OCEAN) ONE (22:13)
[2023-04-10] MEDS: CIPROFLOXACIN HCL 0.3% OP SOLN 2.5 ML BTL OP SCH ×2 (08:46→21:22)
[2023-04-10] MEDS: OLANZapine ZYDIS 5 MG ORALLY DIS. TAB PO SCH ×2 (08:46→21:22)
--- NOTE | 2023-04-10 16:58 | Hospitalist Progress Note ---
Date of Service April 10, 2023 Assessment & Plan (1) Acute CVA (cerebrovascular accident): Plan: R Hemiplegia following CVA (2) Aphasia: Plan: Admitted to telemetry Patient presenting from [facility] for evaluation of garbled speech and altered mental status. Recently admitted to [facility] 03/29 through 04/03 for acute CVA and patient was discharged to [facility] for rehab. Case discussed with neurology Dr. Chris via tigertext on admission Repeat brain MRI obtained - 1. There are numerous foci of acute to subacute ischemia seen bilaterally across vascular territories, with the largest foci seen in the left parietal and occipital lobes. The appearance favors an embolic phenomenon. 2. There is no hemorrhage or mass effect. Continue ASA (will give rectally until able to take p.o.), no indication for DAPT or permissive hypertension at this time Resume statin once taking p.o. Cardiology consult due to concerns of cardioembolic CVA 04/05 Per neurology - Patient presents back with worsening of his stroke deficits secondary to extension of his prior infarcts. Reviewing the initial history, patient was found down at home and stroke burden localized to the borderzone/watershed territory. This region is also typical for cardioembolism and therefore we recommended zio patch despite normal echo (TTE). Now, the MRI shows extension of the prior strokes, with much larger burden in the L hemisphere but again localized to the borderzone. While cardioembolism with a second shower of emboli is possible, I personally feel that it is less likely as there are no strokes throughout the posterior circulation. However, unclear why patient would have extended his strokes despite no hypotension at rehab. Appreciate cardiology opinion on the need and risk/benefit of DAILY in this context. Empiric anticoagulation is otherwise not indicated, patient can remain on aspirin. I am otherwise concerned about his overall prognosis given his age and severity of his stroke deficits. -- Cardiology input appreciated re: DAILY/cardioembolism -- Continue aspirin and statin -- Continue therapy evals 04/05 Per cardiology - -Patient with presentation for change in mental status, confusion, somnolence, unable to articulate. 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 They were in both cerebral hemispheres. Telemetry reviewed and reveals sinus rhythm without evidence of atrial fibrillation. Previous echocardiogram performed 03/30/2023 reviewed and the images were reviewed independently revealing sinus rhythm with subtle hypokinesis of the basal inferior/posterior segments and otherwise normal wall motion, with LVEF in the range of 50-55%. Mild aortic valve sclerosis without stenosis. Aortic regurgitation. Obtaining blood cultures to exclude occult infection subacute bacterial endocarditis could present with embolic phenomenon. Patient was reportedly on aspirin at the time of his initial presentation over a week ago, and has been maintained on aspirin therapy in the meantime and now. He received aspirin per rectum most recently due to inability to take oral medication. Cardiology input requested with regards evaluation with transesophageal echocardiogram for further evaluation of possible cause of embolic strokes. At present, it is felt that the risk of sedation in this particular case would outweigh the benefits obtained from obtaining the information, but this will be reassessed this hospitalization develops. Continue telemetry monitoring to evaluate for occult atrial fibrillation. Blood cultx obtained - negat. for 48 hrs 04/06/2023 - Pt not moving R arm or R leg. Looks at me when I talk to him. Difficulty taking meds today. Discussed w/ neurology and pt's family. CT head repeated - 1. No acute intracranial hemorrhage. No significant mass effect. 2. Re-demonstration of the acute infarcts shown on prior CT and MRI. These are most evident within the left parietal occipital lobes. 3. Hypodensity within the posterior bilateral frontal lobes which is more conspicuous than on prior CT. 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 Neurology reviewed images - expected evolution of CVA Palliative medicine also consulted 04/07/2023 - Family meeting with palliative medicine today. Decided for comfort care measures. Orders adjusted. 04/08 Pt appears comfortable. Able to say "yes" and "no" when talking to him, otherwise unchanged from previous. 04/09 Today sleeping , appears comfortable, not responding to voice or touch. 04/10Pt awake and alert today, speaking in sentences (for the first time since this admission) and even drinking and eating a little. Pt's son contacted to let him know - so that they can visit or call the pt today. (3) Hypertension: Plan: BP elevated, received labetalol, hydralazine - resumed amlodipine but now pt has difficulty swallowing Pt made comfort care (4) CKD (chronic kidney disease), stage III: (5) Acute metabolic encephalopathy: Admission and Anticipated Discharge Date Admission Date: April 04, 2023 Subjective Pt seen in follow up of CVA Recently admitted with CVA and discharged to rehab. in rehab unfortunately he had significant change in status. Now having difficulty swallowing, not moving R arm or R leg. Neurology consulted. Palliative med consulted and pt's status was changed to comfort care measures. Yesterday pt was sleeping soundly, comfortable. Not responding to voice or touch at that. Today he is awake, and speaking, which is significant change since this admission. Per his nurse, he was drinking some water and had a small breakfast. No reports of difficulty swallowing. I contacted patient's son to let him know that patient is able to communicate with him today in case they wanted to visit or call him later. Review of Systems Review of Systems: All systems reviewed & are unremarkable except as noted in Subjective Physical Exam Physical Exam: Constitutional: WD/WN, in NAD Eyes: anicteric sclerae ENMT: Ears: no external ear abnormality N ose: no external n ose abnormality Respiratory: normal respiratory effort, lungs travis ar to auscultation Cardiovascular: Rate/Rhythm: regul ar rhythm Vessels : normal periphera l pulses Extremit ies: no edema Gastrointestinal ( Abdomen): normal bowel sound s, soft, nontender Skin: no rashes, warm an d dry Neurologic: Awake, alert and speaking today (sp eaking sentences f or the first time since this admissi on) Results & Data Results & Data Medications Administered Current Inpatient Medications Ciprofloxacin (Ciprofloxacin Hcl 0.3% Op Soln 2.5 Ml Btl) 1 drops OP BID [facility] Stop: 04/16/23 20:59 Last Admin: 04/10/23 08:46 Dose: 1 drops Glycopyrrolate (Glycopyrrolate 0.2 Mg/Ml Vial) 0.4 mg IV Q4H PRN PRN Reason: Secretions or Pulm Congestion Stop: 05/07/23 13:12 Last Admin: 04/08/23 16:50 Dose: 0.4 mg Hydromorphone HCl (Hydromorphone Inj 0.5 Mg/0.5 Ml Syr) 0.5 mg IV Q30M PRN PRN Reason: pain,dyspnea Stop: 04/21/23 13:12 Lorazepam 1 mg/ Syringe 1 mls @ 2 mls/min IV Q4H PRN; Protocol PRN Reason: Anxiety/Agitation Stop: 05/07/23 13:12 Olanzapine (Olanzapine Zydis 5 Mg Orally Dis. Tab) 5 mg PO BID [facility] Stop: 05/07/23 20:59 Last Admin: 04/10/23 08:46 Dose: 5 mg Sodium Chloride (Sodium Chloride 0.65% Na Soln 45 Ml ([place])) 1 sprays NA PRN PRN PRN Reason: Congestion Stop: 05/09/23 22:03 (3) Hypertension Hypertension type: unspecified Qualified Code(s): I10 - Essential (primary) hypertension (4) CKD (chronic kidney disease), stage III Chronic kidney disease stage 3 subtype: unspecified whether 3a or 3b Qualified Code(s): N18.30 - Chronic kidney disease, stage 3 unspecified
--- NOTE | 2023-04-11 08:53 | Hospitalist Progress Note ---
Date of Service April 11, 2023 Assessment & Plan (1) Acute CVA (cerebrovascular accident): Plan: R Hemiplegia following CVA (2) Aphasia: Plan: Admitted to telemetry Patient presenting from [facility] for evaluation of garbled speech and altered mental status. Recently admitted to [facility] 03/29 through 04/03 for acute CVA and patient was discharged to [facility] for rehab. Case discussed with neurology Dr. Chris via tigertext on admission Repeat brain MRI obtained - 1. There are numerous foci of acute to subacute ischemia seen bilaterally across vascular territories, with the largest foci seen in the left parietal and occipital lobes. The appearance favors an embolic phenomenon. 2. There is no hemorrhage or mass effect. Continue ASA (will give rectally until able to take p.o.), no indication for DAPT or permissive hypertension at this time Resume statin once taking p.o. Cardiology consult due to concerns of cardioembolic CVA 04/05 Per neurology - Patient presents back with worsening of his stroke deficits secondary to extension of his prior infarcts. Reviewing the initial history, patient was found down at home and stroke burden localized to the borderzone/watershed territory. This region is also typical for cardioembolism and therefore we recommended zio patch despite normal echo (TTE). Now, the MRI shows extension of the prior strokes, with much larger burden in the L hemisphere but again localized to the borderzone. While cardioembolism with a second shower of emboli is possible, I personally feel that it is less likely as there are no strokes throughout the posterior circulation. However, unclear why patient would have extended his strokes despite no hypotension at rehab. Appreciate cardiology opinion on the need and risk/benefit of DAILY in this context. Empiric anticoagulation is otherwise not indicated, patient can remain on aspirin. I am otherwise concerned about his overall prognosis given his age and severity of his stroke deficits. -- Cardiology input appreciated re: DAILY/cardioembolism -- Continue aspirin and statin -- Continue therapy evals 04/05 Per cardiology - -Patient with presentation for change in mental status, confusion, somnolence, unable to articulate. 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 They were in both cerebral hemispheres. Telemetry reviewed and reveals sinus rhythm without evidence of atrial fibrillation. Previous echocardiogram performed 03/30/2023 reviewed and the images were reviewed independently revealing sinus rhythm with subtle hypokinesis of the basal inferior/posterior segments and otherwise normal wall motion, with LVEF in the range of 50-55%. Mild aortic valve sclerosis without stenosis. Aortic regurgitation. Obtaining blood cultures to exclude occult infection subacute bacterial endocarditis could present with embolic phenomenon. Patient was reportedly on aspirin at the time of his initial presentation over a week ago, and has been maintained on aspirin therapy in the meantime and now. He received aspirin per rectum most recently due to inability to take oral medication. Cardiology input requested with regards evaluation with transesophageal echocardiogram for further evaluation of possible cause of embolic strokes. At present, it is felt that the risk of sedation in this particular case would outweigh the benefits obtained from obtaining the information, but this will be reassessed this hospitalization develops. Continue telemetry monitoring to evaluate for occult atrial fibrillation. Blood cultx obtained - negat. for 48 hrs 04/06/2023 - Pt not moving R arm or R leg. Looks at me when I talk to him. Difficulty taking meds today. Discussed w/ neurology and pt's family. CT head repeated - 1. No acute intracranial hemorrhage. No significant mass effect. 2. Re-demonstration of the acute infarcts shown on prior CT and MRI. These are most evident within the left parietal occipital lobes. 3. Hypodensity within the posterior bilateral frontal lobes which is more conspicuous than on prior CT. 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 Neurology reviewed images - expected evolution of CVA Palliative medicine also consulted 04/07/2023 - Family meeting with palliative medicine today. Decided for comfort care measures. Orders adjusted. 04/08 Pt appears comfortable. Able to say "yes" and "no" when talking to him, otherwise unchanged from previous. 04/09 Today sleeping , appears comfortable, not responding to voice or touch. 04/10Pt awake and alert today, speaking in sentences (for the first time since this admission) and even drinking and eating a little. Pt's son contacted to let him know - so that they can visit or call the pt today. 04/11 patient is awake and alert, able to speak, take p.o., even moving his right arm somewhat. He does not wish to be comfort care, and would like to try PT OT. PT OT ordered. Family , palliative med. and case investigator aware. Will restart previous medications, aspirin statin, amlodipine. PT contacted so that hopefully evaluation could be done over the weekend. (3) Hypertension: Plan: BP elevated, received labetalol, hydralazine - resumed amlodipine (4) CKD (chronic kidney disease), stage III: (5) Acute metabolic encephalopathy: Admission and Anticipated Discharge Date Admission Date: April 04, 2023 Subjective Pt seen in follow up of CVA Recently admitted with CVA and discharged to rehab. in rehab unfortunately he had significant change in status. Now having difficulty swallowing, not moving R arm or R leg. Neurology consulted. Palliative med consulted and pt's status was changed to comfort care measures. However, pt is now awake, and speaking, even taking PO. He is able to move his R arm somewhat. Family aware, and pt does not wish for comfort measures and would like PT/OT. PT/OT ordered - CM aware. Will also restart his previous meds. Cont. to closely monitor. Review of Systems Review of Systems: All systems reviewed & are unremarkable except as noted in Subjective Physical Exam Physical Exam: Constitutional: WD/WN, in NAD Eyes: anicteric sclerae ENMT: Ears: no external ear abnormality N ose: no external n ose abnormality Respiratory: normal respiratory effort, lungs travis ar to auscultation Cardiovascular: Rate/Rhythm: regul ar rhythm Vessels : normal periphera l pulses Extremit ies: no edema Gastrointestinal ( Abdomen): normal bowel sound s, soft, nontender Skin: no rashes, warm an d dry Neurologic: Awake, alert and speaking, also mov ing R arm somewhat Results & Data Results & Data Vital Signs (Past 12 Hours) Vital Signs O2 Del Method 04/11/23 08:31 Room Air 04/10/23 21:10 Room Air Laboratory Results 04/11/23 Range/Units 11:44 WBC 11.67 H (4.8-10.8) K/ul RBC 4.92 (4.70-6.10) M/uL Hgb 15.0 (14.0-18.0) g/dl Hct 42.4 (42.0-52.0) % MCV 86.2 (80.0-100.0) fL MCH 30.5 (25.0-34.0) pg MCHC 35.4 (32.0-36.0) g/dL RDW Std Deviation 44.1 (36.4-46.3) fL RDW Coeff of Dorothy 14.3 (11.5-14.5) % Plt Count 291 (130-400) K/uL MPV 8.8 L (9.4-12.4) fL Sodium 136 (136-145) mmol/L Potassium 3.7 (3.5-5.1) mmol/L Chloride 105 (98-107) mmol/L Carbon Dioxide 22 (21-32) mmol/L Anion Gap 9 (3-11) BUN 40 H (6-23) mg/dl Creatinine 1.09 (0.6-1.4) mg/dl Est Cr Clr Drug Dosing 46.4 ml/min Est GFR ( Amer) 70.9 ml/min Est GFR (Non-Af Amer) 61.1 ml/min BUN/Creatinine Ratio 36.7 H (10-20) Glucose 107 H (70-99(Fasting)) mg/dl Calcium 8.9 (8.6-10.3) mg/dl Phosphorus 3.0 (2.5-4.9) mg/dl Magnesium 2.3 (1.7-2.4) mg/dl Medications Administered Current Inpatient Medications Ciprofloxacin (Ciprofloxacin Hcl 0.3% Op Soln 2.5 Ml Btl) 1 drops OP BID [facility] Stop: 04/16/23 20:59 Last Admin: 04/10/23 21:22 Dose: 1 drops Glycopyrrolate (Glycopyrrolate 0.2 Mg/Ml Vial) 0.4 mg IV Q4H PRN PRN Reason: Secretions or Pulm Congestion Stop: 05/07/23 13:12 Last Admin: 04/08/23 16:50 Dose: 0.4 mg Hydromorphone HCl (Hydromorphone Inj 0.5 Mg/0.5 Ml Syr) 0.5 mg IV Q30M PRN PRN Reason: pain,dyspnea Stop: 04/21/23 13:12 Last Admin: 04/10/23 22:33 Dose: 0.5 mg Lorazepam 1 mg/ Syringe 1 mls @ 2 mls/min IV Q4H PRN; Protocol PRN Reason: Anxiety/Agitation Stop: 05/07/23 13:12 Olanzapine (Olanzapine Zydis 5 Mg Orally Dis. Tab) 5 mg PO BID [facility] Stop: 05/07/23 20:59 Last Admin: 04/10/23 21:22 Dose: 5 mg Sodium Chloride (Sodium Chloride 0.65% Na Soln 45 Ml ([place])) 1 sprays NA PRN PRN PRN Reason: Congestion Stop: 05/09/23 22:03 (3) Hypertension Hypertension type: unspecified Qualified Code(s): I10 - Essential (primary) hypertension (4) CKD (chronic kidney disease), stage III Chronic kidney disease stage 3 subtype: unspecified whether 3a or 3b Qualified Code(s): N18.30 - Chronic kidney disease, stage 3 unspecified
[2023-04-11 12:07] LABS: Hematocrit (blood only) 42.4 % (42.0-52.0); Mean Corpuscular Hemoglobin 30.5 pg (25.0-34.0); Mean Corpuscular Hgb Conc 35.4 g/dL (32.0-36.0); Mean Corpuscular Volume 86.2 fL (80.0-100.0); Mean Platelet Volume 8.8 fL (9.4-12.4); Platelet Count 291 K/uL (130-400); RDW Coefficient of Variation 14.3 % (11.5-14.5); RDW Standard Deviation 44.1 fL (36.4-46.3); Red Blood Count 4.92 M/uL (4.70-6.10); White Blood Count 11.67 K/ul (4.8-10.8)
[2023-04-11 12:17] LABS: Calcium 8.9 mg/dl (8.6-10.3); Magnesium 2.3 mg/dl (1.7-2.4); Potassium 3.7 mmol/L (3.5-5.1)
[2023-04-11 12:23] LABS: BUN Creatinine Ratio 36.7 (10-20); Creatinine Clr Calc Pharmacy 46.4 ml/min; Est GFR (African American) 70.9 ml/min; Est GFR (Non-African American) 61.1 ml/min
[2023-04-11] MEDS: CIPROFLOXACIN HCL 0.3% OP SOLN 2.5 ML BTL OP SCH ×2 (12:50→20:01)
[2023-04-11] MEDS: OLANZapine ZYDIS 5 MG ORALLY DIS. TAB PO SCH (14:39)
[2023-04-11] MEDS: amLODIPine BESYLATE 5 MG TAB PO SCH (18:50)
[2023-04-11] MEDS: guaiFENesin 600 MG TABCR PO SCH (20:01)
[2023-04-11] MEDS: ATORVASTATIN 40 MG TAB PO SCH (20:01)
[2023-04-12 05:16] LABS: Hematocrit (blood only) 40.7 % (42.0-52.0); Hemoglobin 14.5 g/dl (14.0-18.0); Mean Corpuscular Hemoglobin 30.3 pg (25.0-34.0); Mean Corpuscular Hgb Conc 35.6 g/dL (32.0-36.0); Mean Platelet Volume 8.8 fL (9.4-12.4); Platelet Count 304 K/uL (130-400); RDW Coefficient of Variation 13.8 % (11.5-14.5); RDW Standard Deviation 42.8 fL (36.4-46.3); Red Blood Count 4.79 M/uL (4.70-6.10); White Blood Count 9.68 K/ul (4.8-10.8)
[2023-04-12 05:31] LABS: BUN Creatinine Ratio 28.6 (10-20); Calcium 8.6 mg/dl (8.6-10.3); Creatinine Clr Calc Pharmacy 48.1 ml/min; Est GFR (African American) 74.1 ml/min; Magnesium 2.1 mg/dl (1.7-2.4); Phosphorus 2.7 mg/dl (2.5-4.9); Potassium 3.5 mmol/L (3.5-5.1)
[2023-04-12] MEDS: ASPIRIN 81 MG ECTAB PO SCH (10:10)
[2023-04-12] MEDS: CEROVITE ADV FORMULA TAB PO SCH (10:10)
[2023-04-12] MEDS: guaiFENesin 600 MG TABCR PO SCH ×2 (10:10→21:40)
[2023-04-12] MEDS: CIPROFLOXACIN HCL 0.3% OP SOLN 2.5 ML BTL OP SCH ×2 (10:10→21:39)
--- NOTE | 2023-04-12 18:30 | Hospitalist Progress Note ---
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 Recently admitted to [facility] 03/29 through 04/03 for acute CVA and patient was discharged to [facility] for rehab. Case discussed with neurology Dr. Chris via tigertext on admission Repeat brain MRI obtained - 1. There are numerous foci of acute to subacute ischemia seen bilaterally across vascular territories, with the largest foci seen in the left parietal and occipital lobes. The appearance favors an embolic phenomenon. 2. There is no hemorrhage or mass effect. Continue ASA (will give rectally until able to take p.o.), no indication for DAPT or permissive hypertension at this time Resume statin once taking p.o. Cardiology consult due to concerns of cardioembolic CVA 04/05 Per neurology - Patient presents back with worsening of his stroke deficits secondary to extension of his prior infarcts. Reviewing the initial history, patient was found down at home and stroke burden localized to the borderzone/watershed territory. This region is also typical for cardioembolism and therefore we recommended zio patch despite normal echo (TTE). Now, the MRI shows extension of the prior strokes, with much larger burden in the L hemisphere but again localized to the borderzone. While cardioembolism with a second shower of emboli is possible, I personally feel that it is less likely as there are no strokes throughout the posterior circulation. However, unclear why patient would have extended his strokes despite no hypotension at rehab. Appreciate cardiology opinion on the need and risk/benefit of DAILY in this context. Empiric anticoagulation is otherwise not indicated, patient can remain on aspirin. I am otherwise concerned about his overall prognosis given his age and severity of his stroke deficits. -- Cardiology input appreciated re: DAILY/cardioembolism -- Continue aspirin and statin -- Continue therapy evals 04/05 Per cardiology - -Patient with presentation for change in mental status, confusion, somnolence, unable to articulate. 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 They were in both cerebral hemispheres. Telemetry reviewed and reveals sinus rhythm without evidence of atrial fibrillation. Previous echocardiogram performed 03/30/2023 reviewed and the images were reviewed independently revealing sinus rhythm with subtle hypokinesis of the basal inferior/posterior segments and otherwise normal wall motion, with LVEF in the range of 50-55%. Mild aortic valve sclerosis without stenosis. Aortic regurgitation. Obtaining blood cultures to exclude occult infection subacute bacterial endocarditis could present with embolic phenomenon. Patient was reportedly on aspirin at the time of his initial presentation over a week ago, and has been maintained on aspirin therapy in the meantime and now. He received aspirin per rectum most recently due to inability to take oral medication. Cardiology input requested with regards evaluation with transesophageal echocardiogram for further evaluation of possible cause of embolic strokes. At present, it is felt that the risk of sedation in this particular case would outweigh the benefits obtained from obtaining the information, but this will be reassessed this hospitalization develops. Continue telemetry monitoring to evaluate for occult atrial fibrillation. Blood cultx obtained - negat. for 48 hrs 04/06/2023 - Pt not moving R arm or R leg. Looks at me when I talk to him. Difficulty taking meds today. Discussed w/ neurology and pt's family. CT head repeated - 1. No acute intracranial hemorrhage. No significant mass effect. 2. Re-demonstration of the acute infarcts shown on prior CT and MRI. These are most evident within the left parietal occipital lobes. 3. Hypodensity within the posterior bilateral frontal lobes which is more conspicuous than on prior CT. 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 Neurology reviewed images - expected evolution of CVA Palliative medicine also consulted 04/07/2023 - Family meeting with palliative medicine today. Decided for comfort care measures. Orders adjusted. 04/08 Pt appears comfortable. Able to say "yes" and "no" when talking to him, otherwise unchanged from previous. 04/09 Today sleeping , appears comfortable, not responding to voice or touch. 04/10Pt awake and alert today, speaking in sentences (for the first time since this admission) and even drinking and eating a little. Pt's son contacted to let him know - so that they can visit or call the pt today. 04/11 patient is awake and alert, able to speak, take p.o., even moving his right arm somewhat. He does not wish to be comfort care, and would like to try PT OT. PT OT ordered. Family , palliative med. and case management coordinator aware. Will restart previous medications, aspirin statin, amlodipine. PT contacted so that hopefully evaluation could be done over the weekend. 04/12 Patient is more confused today Continue present medication regimen Continue to monitor patient's progress closely Long discussion held with patient's son and daughter at the bedside (3) Hypertension: Plan: BP elevated, received labetalol, hydralazine - resumed amlodipine (4) CKD (chronic kidney disease), stage III: (5) Acute metabolic encephalopathy: Admission and Anticipated Discharge Date Admission Date: April 04, 2023 Subjective ff up for acute CVA, etc. Seen resting in bed, comfortable, not in distress Awake but mostly confused, with hallucinations Patient's family at the bedside-son and [id number] States he has felt better No active chest pain, shortness of breath, headache Patient's family noted patient is more confused today than yesterday Review of Systems Review of Systems: all noted and negative except for above Physical Exam Physical Exam: General-awake, oriented to place, to person and time, not in distress, speaks in sentences with no effort or accessory muscle use Eyes- anicteric Neck- no JVD Lungs- clear breath sounds bilaterally, no rales or wheeze Heart- normal rate, regular rhythm; no murmurs Abdomen- normal bowel sounds, nondistended, soft, nontender Extremities- no pretibial edema, no calf tenderness Neuro- alert, oriented x 3; no new gross focal neurologic deficits Skin- warm & dry Results & Data Results & Data Vital Signs (Past 12 Hours) Vital Signs Temp Pulse Pulse Resp BP Pulse Ox O2 Del Method 04/12/23 17:56 92 H 04/12/23 15:26 36.6 C 88 20 133/81 94 Room Air 04/12/23 11:31 36.8 C 87 20 151/93 H 93 Room Air 04/12/23 09:24 Room Air 04/12/23 07:57 36.8 C 100 H 20 118/77 91 Room Air 04/12/23 07:52 99 H all noted and reviewed including below (3) Hypertension Hypertension type: unspecified Qualified Code(s): I10 - Essential (primary) hypertension (4) CKD (chronic kidney disease), stage III Chronic kidney disease stage 3 subtype: unspecified whether 3a or 3b Qualified Code(s): N18.30 - Chronic kidney disease, stage 3 unspecified
[2023-04-12] MEDS: ATORVASTATIN 40 MG TAB PO SCH (21:40)
[2023-04-13] MEDS: amLODIPine BESYLATE 5 MG TAB PO SCH (08:01)
[2023-04-13] MEDS: guaiFENesin 600 MG TABCR PO SCH ×2 (08:01→20:03)
[2023-04-13] MEDS: CEROVITE ADV FORMULA TAB PO SCH (08:01)
[2023-04-13] MEDS: ASPIRIN 81 MG ECTAB PO SCH (08:01)
[2023-04-13] MEDS: CIPROFLOXACIN HCL 0.3% OP SOLN 2.5 ML BTL OP SCH ×2 (08:01→20:03)
--- NOTE | 2023-04-13 11:46 | Communication Note ---
Date of Service: April 13, [address] with Dr. Quiroz as family is pursuing emergency medical guardianship. His MSE continues to wax and wane with periods of very low energy. Ongoing receptive/expressive aphasia. Oriented to self only per nursing. Although he arousable, he is not responding in a directed way to indicate even simply preferences re: food, etc. Reviewed opinions of previous hospitalist, original psychiatry consult and palliative care. All are in agreement that his decision making capacity is impaired following his acute CVA and it does seem he has some degree of ongoing hypoactive delirium. I assisted Dr. Quiroz with any questions about the county paperwork. He is not testable via Mo[employer] or mini cog due to his stroke residuals in making this determination. If additional clarification is needed would suggest reconsult of neuro as the patient's condition is unrelated to psych.
--- NOTE | 2023-04-13 18:20 | Hospitalist Progress Note ---
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 Recently admitted to [facility] 03/29 through 04/03 for acute CVA and patient was discharged to [facility] for rehab. Case discussed with neurology Dr. Chris via tigertext on admission Repeat brain MRI obtained - 1. There are numerous foci of acute to subacute ischemia seen bilaterally across vascular territories, with the largest foci seen in the left parietal and occipital lobes. The appearance favors an embolic phenomenon. 2. There is no hemorrhage or mass effect. Continue ASA (will give rectally until able to take p.o.), no indication for DAPT or permissive hypertension at this time Resume statin once taking p.o. Cardiology consult due to concerns of cardioembolic CVA 04/05 Per neurology - Patient presents back with worsening of his stroke deficits secondary to extension of his prior infarcts. Reviewing the initial history, patient was found down at home and stroke burden localized to the borderzone/watershed territory. This region is also typical for cardioembolism and therefore we recommended zio patch despite normal echo (TTE). Now, the MRI shows extension of the prior strokes, with much larger burden in the L hemisphere but again localized to the borderzone. While cardioembolism with a second shower of emboli is possible, I personally feel that it is less likely as there are no strokes throughout the posterior circulation. However, unclear why patient would have extended his strokes despite no hypotension at rehab. Appreciate cardiology opinion on the need and risk/benefit of DIALY in this context. Empiric anticoagulation is otherwise not indicated, patient can remain on aspirin. I am otherwise concerned about his overall prognosis given his age and severity of his stroke deficits. -- Cardiology input appreciated re: DAILY/cardioembolism -- Continue aspirin and statin -- Continue therapy evals 04/05 Per cardiology - -Patient with presentation for change in mental status, confusion, somnolence, unable to articulate. 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 They were in both cerebral hemispheres. Telemetry reviewed and reveals sinus rhythm without evidence of atrial fibrillation. Previous echocardiogram performed 03/30/2023 reviewed and the images were reviewed independently revealing sinus rhythm with subtle hypokinesis of the basal inferior/posterior segments and otherwise normal wall motion, with LVEF in the range of 50-55%. Mild aortic valve sclerosis without stenosis. Aortic regurgitation. Obtaining blood cultures to exclude occult infection subacute bacterial endocarditis could present with embolic phenomenon. Patient was reportedly on aspirin at the time of his initial presentation over a week ago, and has been maintained on aspirin therapy in the meantime and now. He received aspirin per rectum most recently due to inability to take oral medication. Cardiology input requested with regards evaluation with transesophageal echocardiogram for further evaluation of possible cause of embolic strokes. At present, it is felt that the risk of sedation in this particular case would outweigh the benefits obtained from obtaining the information, but this will be reassessed this hospitalization develops. Continue telemetry monitoring to evaluate for occult atrial fibrillation. Blood cultx obtained - negat. for 48 hrs 04/06/2023 - Pt not moving R arm or R leg. Looks at me when I talk to him. Difficulty taking meds today. Discussed w/ neurology and pt's family. CT head repeated - 1. No acute intracranial hemorrhage. No significant mass effect. 2. Re-demonstration of the acute infarcts shown on prior CT and MRI. These are most evident within the left parietal occipital lobes. 3. Hypodensity within the posterior bilateral frontal lobes which is more conspicuous than on prior CT. 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 Neurology reviewed images - expected evolution of CVA Palliative medicine also consulted 04/07/2023 - Family meeting with palliative medicine today. Decided for comfort care measures. Orders adjusted. 04/08 Pt appears comfortable. Able to say "yes" and "no" when talking to him, otherwise unchanged from previous. 04/09 Today sleeping , appears comfortable, not responding to voice or touch. 04/10Pt awake and alert today, speaking in sentences (for the first time since this admission) and even drinking and eating a little. Pt's son contacted to let him know - so that they can visit or call the pt today. 04/11 patient is awake and alert, able to speak, take p.o., even moving his right arm somewhat. He does not wish to be comfort care, and would like to try PT OT. PT OT ordered. Family , palliative med. and insurance case manager aware. Will restart previous medications, aspirin statin, amlodipine. PT contacted so that hopefully evaluation could be done over the weekend. 04/12 Patient is more confused today Continue present medication regimen Continue to monitor patient's progress closely Long discussion held with patient's son and daughter at the bedside 04/13 Drowsy today, still mostly confused Continue to observe closely Continue PT and OT evaluation Emergency guardianship paperwork requested by patient's son and [id number], completed in consultation with psychiatrist Dr. Dominique Holder (3) Hypertension: Plan: BP elevated, received labetalol, hydralazine - resumed amlodipine Blood pressure improving (4) CKD (chronic kidney disease), stage III: (5) Acute metabolic encephalopathy: Admission and Anticipated Discharge Date Admission Date: April 04, 2023 Subjective Follow-up for acute CVA, etc. Patient seen resting in bed, not in distress Very drowsy Barely opens eyes Able to squeeze examiner's fingers Otherwise, follow other directions no answers questions Reevaluated later in the afternoon with patient's family at the bedside Seems to be more awake Answer simple questions but still somewhat confused Participated with PT, observed to be weak, on the confused side Review of Systems Review of Systems: all noted and negative except for above Physical Exam Physical Exam: General- oriented x 3, not in distress, speaks in sentences with no effort or accessory muscle use Eyes- anicteric Neck- no JVD Lungs- clear breath sounds bilaterally, no crackles or wheezing Heart- normal rate, regular rhythm; no murmurs Abdomen- normal bowel sounds, nondistended, soft, no tenderness Extremities- no pretibial edema, no calf tenderness Neuro-alert, right lower extremity weakness Positive aphasia Skin- warm & dry Results & Data Results & Data Vital Signs (Past 12 Hours) Vital Signs Temp Pulse Pulse Resp BP Pulse Ox O2 Del Method 04/13/23 15:36 36.7 C 77 20 155/89 H 95 Room Air 04/13/23 15:24 85 04/13/23 11:21 36.6 C 79 20 134/91 94 Room Air 04/13/23 07:39 36.4 C L 87 20 125/82 95 Room Air 04/13/23 07:21 85 all noted and reviewed including below (3) Hypertension Hypertension type: unspecified Qualified Code(s): I10 - Essential (primary) hypertension (4) CKD (chronic kidney disease), stage III Chronic kidney disease stage 3 subtype: unspecified whether 3a or 3b Q ualified Code(s): N18.30 - Chronic kidney disease, stage 3 unspecified
[2023-04-13] MEDS: ATORVASTATIN 40 MG TAB PO SCH (20:03)
[2023-04-14] MEDS: amLODIPine BESYLATE 5 MG TAB PO SCH (07:22)
[2023-04-14] MEDS: ASPIRIN 81 MG ECTAB PO SCH (07:22)
[2023-04-14] MEDS: guaiFENesin 600 MG TABCR PO SCH ×2 (07:22→20:44)
[2023-04-14] MEDS: CEROVITE ADV FORMULA TAB PO SCH (07:22)
[2023-04-14] MEDS: CIPROFLOXACIN HCL 0.3% OP SOLN 2.5 ML BTL OP SCH ×2 (07:22→20:44)
--- NOTE | 2023-04-14 17:25 | Hospitalist Progress Note ---
Date of Service April 14, 2023 Assessment & Plan (1) Acute CVA (cerebrovascular accident): Plan: R Hemiplegia following CVA (2) Aphasia: Plan: per Dr Kenny's notes with addendum: Admitted to telemetry Patient presenting from [facility] for evaluation of garbled speech and altered mental status. Recently admitted to [facility] 03/29 through 04/03 for acute CVA and patient was discharged to [facility] for rehab. Case discussed with neurology Dr. Chris via tigertext on admission Repeat brain MRI obtained - 1. There are numerous foci of acute to subacute ischemia seen bilaterally across vascular territories, with the largest foci seen in the left parietal and occipital lobes. The appearance favors an embolic phenomenon. 2. There is no hemorrhage or mass effect. Continue ASA (will give rectally until able to take p.o.), no indication for DAPT or permissive hypertension at this time Resume statin once taking p.o. Cardiology consult due to concerns of cardioembolic CVA 04/05 Per neurology - Patient presents back with worsening of his stroke deficits secondary to extension of his prior infarcts. Reviewing the initial history, patient was found down at home and stroke burden localized to the borderzone/watershed territory. This region is also typical for cardioembolism and therefore we recommended zio patch despite normal echo (TTE). Now, the MRI shows extension of the prior strokes, with much larger burden in the L hemisphere but again localized to the borderzone. While cardioembolism with a second shower of emboli is possible, I personally feel that it is less likely as there are no strokes throughout the posterior circulation. However, unclear why patient would have extended his strokes despite no hypotension at rehab. Appreciate cardiology opinion on the need and risk/benefit of DAILY in this context. Empiric anticoagulation is otherwise not indicated, patient can remain on aspirin. I am otherwise concerned about his overall prognosis given his age and severity of his stroke deficits. -- Cardiology input appreciated re: DAILY/cardioembolism -- Continue aspirin and statin -- Continue therapy evals 04/05 Per cardiology - -Patient with presentation for change in mental status, confusion, somnolence, unable to articulate. 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 They were in both cerebral hemispheres. Telemetry reviewed and reveals sinus rhythm without evidence of atrial fibrillation. Previous echocardiogram performed 03/30/2023 reviewed and the images were reviewed independently revealing sinus rhythm with subtle hypokinesis of the basal inferior/posterior segments and otherwise normal wall motion, with LVEF in the range of 50-55%. Mild aortic valve sclerosis without stenosis. Aortic regurgitation. Obtaining blood cultures to exclude occult infection subacute bacterial endocarditis could present with embolic phenomenon. Patient was reportedly on aspirin at the time of his initial presentation over a week ago, and has been maintained on aspirin therapy in the meantime and now. He received aspirin per rectum most recently due to inability to take oral medication. Cardiology input requested with regards evaluation with transesophageal echocardiogram for further evaluation of possible cause of embolic strokes. At present, it is felt that the risk of sedation in this particular case would outweigh the benefits obtained from obtaining the information, but this will be reassessed this hospitalization develops. Continue telemetry monitoring to evaluate for occult atrial fibrillation. Blood cultx obtained - negat. for 48 hrs 04/06/2023 - Pt not moving R arm or R leg. Looks at me when I talk to him. Difficulty taking meds today. Discussed w/ neurology and pt's family. CT head repeated - 1. No acute intracranial hemorrhage. No significant mass effect. 2. Re-demonstration of the acute infarcts shown on prior CT and MRI. These are most evident within the left parietal occipital lobes. 3. Hypodensity within the posterior bilateral frontal lobes which is more conspicuous than on prior CT. 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 Neurology reviewed images - expected evolution of CVA Palliative medicine also consulted 04/07/2023 - Family meeting with palliative medicine today. Decided for comfort care measures. Orders adjusted. 04/08 Pt appears comfortable. Able to say "yes" and "no" when talking to him, otherwise unchanged from previous. 04/09 Today sleeping , appears comfortable, not responding to voice or touch. 04/10Pt awake and alert today, speaking in sentences (for the first time since this admission) and even drinking and eating a little. Pt's son contacted to let him know - so that they can visit or call the pt today. 04/11 patient is awake and alert, able to speak, take p.o., even moving his right arm somewhat. He does not wish to be comfort care, and would like to try PT OT. PT OT ordered. Family , palliative med. and correctional case manager aware. Will restart previous medications, aspirin statin, amlodipine. PT contacted so that hopefully evaluation could be done over the weekend. 04/12 Patient is more confused today Continue present medication regimen Continue to monitor patient's progress closely Long discussion held with patient's son and daughter at the bedside 04/13 Drowsy today, still mostly confused Continue to observe closely Continue PT and OT evaluation Emergency guardianship paperwork requested by patient's son and [id number], completed in consultation with psychiatrist Dr. Dominique Holder 04/14 More alert and awake today Continue PT and OT evaluation Continue aspirin, Lipitor (3) Hypertension: Plan: BP elevated, received labetalol, hydralazine - resumed amlodipine Blood pressure improving (4) CKD (chronic kidney disease), stage III: (5) Acute metabolic encephalopathy: Admission and Anticipated Discharge Date Admission Date: April 04, 2023 Subjective Follow-up for acute CVA, etc. Seen resting in bed, comfortable, not in distress Awake and alert, oriented x 2, answers simple questions Still on the weak side States he feels fine overall, just tired no chest pain, dyspnea, palpitations, dizziness No weakness or numbness Still has some slurring of speech as per family and intermittent confusion No other new symptoms Review of Systems Review of Systems: all noted and negative except for above Physical Exam Physical Exam: General- oriented x 2, not in distress, speaks in sentences with no effort or accessory muscle use Eyes- anicteric Neck- no JVD Lungs- clear breath sounds bilaterally, no rales/wheezes Heart- normal rate, regular rhythm; no murmurs Abdomen- normal bowel sounds, nondistended, soft, nontender Extremities- no pretibial edema, no calf tenderness Neuro- alert, oriented x 2; mild slurring of speech right lower leg weakness, no new gross focal neurologic deficits Skin- warm & dry Results & Data Results & Data Vital Signs (Past 12 Hours) Vital Signs Temp Pulse Pulse Resp BP Pulse Ox O2 Del Method 04/14/23 16:48 Room Air 04/14/23 14:55 36.9 C 85 20 121/84 95 Room Air 04/14/23 14:04 93 H 04/14/23 11:36 36.9 C 77 20 137/87 93 Room Air 04/14/23 08:15 Room Air 04/14/23 07:55 36.4 C L 79 20 147/86 H 95 Room Air all noted and reviewed including below (3) Hypertension Hypertension type: unspecified Qualified Code(s): I10 - Essential (primary) hypertension (4) CKD (chronic kidney disease), stage III Chronic kidney disease stage 3 subtype: unspecified whether 3a or 3b Qualified Code(s): N18.30 - Chronic kidney disease, stage 3 unspecified
[2023-04-14] MEDS: ACETAMINOPHEN 325 MG TAB PO PRN (20:43)
[2023-04-14] MEDS: ATORVASTATIN 40 MG TAB PO SCH (20:44)
--- NOTE | 2023-04-14 21:36 | Palliative Care Progress Note ---
Date of Service April 14, 2023 Assessment & Plan (1) Weakness generalized: Plan: awaiting rehab snf placement (2) Altered mental status: (3) Aphasia: (4) Palliative care by specialist: Plan * Mr Everett is not decisional. He is occasionally alert to self but not place or time, cannot follow commands, cannot consistently answer questions. He does not have decisional capacity and surrogate decision making is required. His son is his SDM per Act 169 and currently pursuing guardianship. * Awaiting SNF / rehab placement * MDM: moderate complexity, determinations for decisional capacity * I will sign off as there are currently no acute/urgent needs for inpatient pall med following. Please call or page me for urgent re-engagement through this admission. Thank you for allowing us to participate in the ongoing care of this patient. Please don't hesitate to call or page with any additional concerns. Dr. Raeann Viveros DNP Director, Palliative Care Admission and Anticipated Discharge Date Admission Date: April 04, 2023 Subjective awaiting rehab bed mental status [employer] family pursuing guardianship medical teams in agreement he does not have capacity for MDM Review of Systems Review of Systems: Unobtainable due to cognitive status Physical Exam Physical Exam: Stroke related confusion bitemp wasting opens eyes to name, some tracking cannot answer simple yes/no questions for me unable to follow commands consistently right hemiplegia and weakness skin pale, warm Results & Data Vital Signs (Past 12 Hours) Vital Signs Temp Pulse Pulse Resp BP Pulse Ox O2 Del Method 04/14/23 16:48 Room Air 04/14/23 14:55 36.9 C 85 20 121/84 95 Room Air 04/14/23 14:04 93 H 04/14/23 11:36 36.9 C 77 20 137/87 93 Room Air Laboratory Results data reviewed Diagnostic Findings data reviewed PG Care Time/CCT Total # of Minutes Spent Total Time Spent: 65 Total Time Spent with Patient: Total time spent is greater than 50% in coordination of care (as documented) at patient's floor/unit and/or counseling patient: I spent 65 minutes overall addressing this case: 20 min in medical data review/discussion with referring provider(s) and/or preparation for the visit 15 min in direct interaction with the patient/exam 00 min in Advance Care Planning/Goals of Care discussions as detailed above in note (must be >16min) 15 min in subsequent review and synthesis of assessment and plan 15 min communicating with other providers regarding the patient's case: [place] [address] SUB INP/OBS CARE 3/50MIN Patient Type Established History Comprehensive Exam Comprehensive Medical Decision Making Moderate Complexity Diagnoses Weakness generalized R53.1 Stupor R40.1 Altered mental status type: stupor Aphasia R47.01 Palliative care by specialist Z51.5 (2) Altered mental status Altered mental status type: stupor Qualified Code(s): R40.1 - Stupor
[2023-04-15] MEDS ORDERED: NSS + 20MEQ KCL 20 MEQ/1,000 ML BAG IV ONE (05:45)
[2023-04-15 06:22] LABS: BUN Creatinine Ratio 25.8 (10-20); Calcium 8.7 mg/dl (8.6-10.3); Creatinine Clr Calc Pharmacy 52.1 ml/min; Est GFR (African American) 81.6 ml/min; Est GFR (Non-African American) 70.4 ml/min; Potassium 3.4 mmol/L (3.5-5.1)
--- NOTE | 2023-04-15 06:26 | Communication Note ---
Date of Service: April 15, 2023 Patient blood clots decreased urine output and blood clots from Swan catheter drainage as per RN. No pain complaints. AP Decreased urine output Hematuria IVF Check a.m. CBC, renal function Hold aspirin for now
[2023-04-15 07:04] LABS: Basophils # (auto) 0.08 K/uL (0.00-0.20); Basophils % (auto) 0.8 %; Eosinophils # (auto) 0.23 K/uL (0.00-0.50); Eosinophils % (auto) 2.3 %; Hematocrit (blood only) 42.2 % (42.0-52.0); Hemoglobin 14.7 g/dl (14.0-18.0); Immature Granulocytes # (auto) 0.07 K/uL (0.01-0.20); Immature Granulocytes % (auto) 0.7 %; Lymphocytes # (auto) 1.75 K/uL (1.20-3.40); Lymphocytes % (auto) 17.5 %; Mean Corpuscular Hemoglobin 29.7 pg (25.0-34.0); Mean Corpuscular Hgb Conc 34.8 g/dL (32.0-36.0); Mean Corpuscular Volume 85.3 fL (80.0-100.0); Mean Platelet Volume 8.7 fL (9.4-12.4); Monocytes # (auto) 1.18 K/uL (0.11-0.59); Monocytes % (auto) 11.8 %; Neutrophils # (auto) 6.71 K/uL (1.40-6.50); Neutrophils % (auto) 66.9 %; Platelet Count 303 K/uL (130-400); RDW Coefficient of Variation 13.6 % (11.5-14.5); RDW Standard Deviation 41.9 fL (36.4-46.3); Red Blood Count 4.95 M/uL (4.70-6.10); White Blood Count 10.02 K/ul (4.8-10.8)
[2023-04-15] MEDS ORDERED: POTASSIUM CHLORIDE CRTAB 20 MEQ TABCR PO STA (08:02)
[2023-04-15] MEDS: guaiFENesin 600 MG TABCR PO SCH (08:25)
[2023-04-15] MEDS: CEROVITE ADV FORMULA TAB PO SCH (08:25)
[2023-04-15] MEDS: amLODIPine BESYLATE 5 MG TAB PO SCH (08:25)
[2023-04-15] MEDS: CIPROFLOXACIN HCL 0.3% OP SOLN 2.5 ML BTL OP SCH (08:27)
--- NOTE | 2023-04-15 09:59 | Urology Consultation ---
Date of Consultation April 15, 2023 Assessment & Plan (1) Hematuria: 87 yo/M admitted for aphasia and acute CVA. - Urology consulted for hematuria, indwelling Rodríguez catheter - Per chart, pt noted to have hematuria this morning - Pt afebrile, hemodynamically stable - Labs - creatinine 0.97, WBC 10.02, Hgb 14.7 - CT A/P wo con 04/04 independently reviewed and with Dr. Hewitt-B/L kidneys are without hydronephrosis. There is contrast vs possible stone noted in proximal right ureter as well as b/l mid to distal ureters. Rodríguez present, prostate markedly enlarged. - Renal function is normal and he is not having any flank pain, so findings less likely to be stone - Consider repeat CT a/p wo con to rule out stone given hematuria - Rodríguez was placed on admission - Catheter is patent and draining pink urine, no clots noted during my exam - UA on arrival was negative for blood, 0-4 RBC, and otherwise was not suggestive of infection - UA on 03/30 was also negative for blood, 0-4 RBC - Hematuria is likely due to irritation from catheter, enlarged prostate - Aspirin is on hold by primary team--okay to resume in 1-2 days if urine has cleared - Can check a urine culture to rule out infection - Per hospitalist, no history of chronic catheter - Can do voiding trial prior to discharge or at rehab facility, replace catheter if he is unable to void - will sign off, please contact us with any additional questions of concerns Update 1250- CT A/P wo con 04/15 reviewed - Probable small left kidney stones; no ureteral stones or hydronephrosis. Punctate stones noted with the bladder. The Rodríguez balloon is malpositioned within the prostatic urethra. Suspect hematuria is due to malpositioned Rodríguez Nursing can reposition Rodríguez catheter Discussed with Dr. Quiroz History of Present Illness Reason for Consultation: Hematuria, indwelling rodríguez cath Requesting Physician: Dr. Quiroz Attending Physician: John Quiroz MD History of Present Illness 87 yo/M with PMHx of hypertension, hyperlipidemia, CKD, CVA who presented to the ED from his rehab facility on 04/04/2023 for evaluation of garbled speech and altered mental status and admitted for aphasia and acute CVA. He was recently admitted to [facility] 03/29 through 04/03 for acute CVA and was discharged to [facility] for rehab. Initial workup showed extension of the prior strokes. He has been evaluated by neurology and cardiology. Urology consulted for hematuria, indwelling Rodríguez catheter Rodríguez catheter placed on 04/05 Urinalysis on 04/05/2023 was negative for blood; showed >30 epithelial cells Blood cultures 04/05 no growth Today's labs -creatinine 0.97, WBC 10.02, hemoglobin 14.7 CT abdomen pelvis without contrast on 04/04 independently reviewed. Bilateral kidneys are without hydronephrosis. There is contrast vs possible stone noted in proximal right ureter as well as bilateral mid to distal ureters. Rodríguez present, some contrast within the bladder. Markedly enlarged prostate. Patient seen at bedside. He is alert and sitting up in chair, no apparent distress. Oriented to self and able to tell me he is in the hospital. He is interactive, but unable to provide meaningful history. Rodríguez draining pink urine, no clots noted on exam. Denies abdominal, suprapubic or flank pain. No nausea, vomiting, fever or chills. Denies personal or family hx of malignancy. Allergies Allergy/AdvReac Type Severity Reaction Status Date / Time No Known Allergies Allergy Unverified 03/29/23 20:25 Home Medications Medication Instructions Recorded Confirmed Type aspirin 81 mg tablet,delayed 81 mg PO DAILY 03/29/23 04/04/23 History release cholecalciferol (vitamin D3) 25 25 mcg PO DAILY 03/29/23 04/04/23 History mcg (1,000 unit) capsule multivitamin with minerals 1 tab PO DAILY 03/29/23 04/04/23 History (Multiple Vitamin-Minerals tablet) amlodipine 5 mg tablet (Norvasc) 5 mg PO QPM #30 tabs 03/31/23 04/04/23 Rx atorvastatin 40 mg tablet 40 mg PO HS #30 tabs 04/03/23 04/04/23 Rx acetaminophen 325 mg tablet 650 mg (2 x 325 mg) PO QID PRN 04/15/23 Rx pain/fever 30 days #14 tabs ciprofloxacin HCl 0.3 % eye drops 1 drp ophthalmic (eye) BID 4 days 04/15/23 Rx #10 mL Patient History Medical History Encounter for assessment of healthcare decision-making capacity HLD (hyperlipidemia) CVA (cerebral vascular accident) CKD (chronic kidney disease), stage III Social History Smoking Status: Never smoker Hx Alcohol Use: No Hx Substance Use: No Preferred Language: Malawian Communication Ability: Unable Team Physician Required: Yes Beliefs That Will Affect Care: None Current Living Situation: Alone Feels Safe at Home: Yes Assistive Devices: None Review of Systems Review of Systems: per HPI Constitutional: as per Subjective / HPI Gastrointestinal: as per Subjective / HPI Genitourinary: + as per Subjective / HPI Physical Exam Constitutional: well developed and well nourished; no acute distress Respiratory: normal respiratory effort; no respiratory distress and no labored breathing Gastrointestinal (Abdomen): Inspection/Auscultation: abdomen normal to inspection Percussion/Palpation: abdomen soft; abdomen nontender Musculoskeletal: Head/Neck/Chest: normocephalic Neurologic: moves all extremities and awake Psychiatric: Orientation: alert, oriented to person and oriented to place Genitourinary: Rodríguez patent and draining clear pink urine, no clots noted Results & Data Vital Signs (Past 12 Hours) Vital Signs Temp Pulse Pulse Resp BP Pulse Ox O2 Del Method 04/15/23 08:05 36.6 C 98 H 18 158/95 H 93 Room Air 04/15/23 05:57 94 H 04/15/23 03:15 36.7 C 86 18 152/93 H 92 Room Air 04/14/23 23:13 85 04/14/23 22:45 Room Air 04/14/23 22:39 36.5 C 86 18 130/78 94 Room Air PG Care Time/CCT Total # of Minutes Spent Total Time Spent with Patient: Total time spent is greater than 50% in coordination of care (as documented) at patient's floor/unit and/or counseling patient: Coding Level of Care Code 01336 IN/OBS CONSULT LVL 4,60M Diagnoses Hematuria R31.9
--- NOTE | 2023-04-15 10:48 | Hospitalist Progress Note ---
Date of Service April 15, 2023 Assessment & Plan (1) Acute CVA (cerebrovascular accident): Plan: R Hemiplegia following CVA (2) Aphasia: Plan: per Dr Kenny's notes with addendum: Admitted to telemetry Patient presenting from [facility] for evaluation of garbled speech and altered mental status. Recently admitted to [facility] 03/29 through 04/03 for acute CVA and patient was discharged to [facility] for rehab. Case discussed with neurology Dr. Chris via tigertext on admission Repeat brain MRI obtained - 1. There are numerous foci of acute to subacute ischemia seen bilaterally across vascular territories, with the largest foci seen in the left parietal and occipital lobes. The appearance favors an embolic phenomenon. 2. There is no hemorrhage or mass effect. Neurology consulted Cardiology consult due to concerns of cardioembolic CVA 04/05 Per neurology - Patient presents back with worsening of his stroke deficits secondary to ext ension of his prior infarcts. Reviewing the initial history, patient was found down at home and stroke burden localized to the borderzone/watershed territory. This region is also typical for cardioembolism and therefore we recommended zio patch despite normal echo (TTE). Now, the MRI shows extension of the prior strokes, with much larger burden in the L hemisphere but again localized to the borderzone. While cardioembolism with a second shower of emboli is possible, I personally feel that it is less likely as there are no strokes throughout the posterior circulation. However, unclear why patient would have extended his strokes despite no hypotension at rehab. Appreciate cardiology opinion on the need and risk/benefit of DAILY in this context. Empiric anticoagulation is otherwise not indicated, patient can remain on aspirin. I am otherwise concerned about his overall prognosis given his age and severity of his stroke deficits. -- Cardiology input appreciated re: DAILY/cardioembolism -- Continue aspirin and statin -- Continue therapy evals 04/05 Per cardiology - -Patient with presentation for change in mental status, confusion, somnolence, unable to articulate. 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 They were in both cerebral hemispheres. Telemetry reviewed and reveals sinus rhythm without evidence of atrial fibri llation. Previous echocardiogram performed 03/30/2023 reviewed and the images were reviewed independently revealing sinus rhythm with subtle hypokinesis of the basal inferior/posterior segments and otherwise normal wall motion, with LVEF in the range of 50-55%. Mild aortic valve sclerosis without stenosis. Aortic regurgitation. Obtaining blood cultures to exclude occult infection subacute bacterial endocarditis could present with embolic phenomenon Patient was reportedly on aspirin at the time of his initial presentation over a week ago, and has been maintained on aspirin therapy in the meantime and now. He received aspirin per rectum most recently due to inability to take oral medication. Cardiology input requested with regards evaluation with transesophageal echocardiogram for further evaluation of possible cause of embolic strokes. At present, it is felt that the risk of sedation in this particular case would outweigh the benefits obtained from obtaining the information, but this will be reassessed this hospitalization develops. Continue telemetry monitoring to evaluate for occult atrial fibrillation. Blood cultx obtained - negat. for 48 hrs 04/06/2023 - Pt not moving R arm or R leg. Looks at me when I talk to him. Difficulty taking meds today. Discussed w/ neurology and pt's family. CT head repeated - 1. No acute intracranial hemorrhage. No significant mass effect. 2. Re-demonstration of the acute infarcts shown on prior CT and MRI. These are most evident within the left parietal occipital lobes. 3. Hypodensity within the posterior bilateral frontal lobes which is more conspicuous than on prior CT. 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 Neurology reviewed images - expected evolution of CVA Palliative medicine also consulted 04/07/2023 - Family meeting with palliative medicine today. Decided for comfort care measures. Orders adjusted. 04/08 Pt appears comfortable. Able to say "yes" and "no" when talking to him, otherwise unchanged from previous. 04/09 Today sleeping , appears comfortable, not responding to voice or touch. 04/10Pt awake and alert today, speaking in sentences (for the first time since this admission) and even drinking and eating a little. Pt's son contacted to let him know - so that they can visit or call the pt today. 04/11 patient is awake and alert, able to speak, take p.o., even moving his right arm somewhat. He does not wish to be comfort care, and would like to try PT OT. PT OT ordered. Family , palliative med. and family caseworker aware. Will restart previous medications, aspirin statin, amlodipine. PT contacted so that hopefully evaluation could be done over the weekend. 04/12 Patient is more confused today Continue present medication regimen Continue to monitor patient's progress closely Long discussion held with patient's son and daughter at the bedside 04/13 Drowsy today, still mostly confused Continue to observe closely Continue PT and OT evaluation Emergency guardianship paperwork requested by patient's son and [id number], completed in consultation with psychiatrist Dr. Dominique Holder 04/14 More alert and awake today Continue PT and OT evaluation Continue aspirin, Lipitor 04/15 Remains awake and alert, sitting up in bedside chair, having breakfast, still occasionally confused Still with right lower extremity weakness Hold aspirin for today in light of hematuria, if hematuria further resolves tomorrow April 16, 2023, resume aspirin please Continue amlodipine for blood pressure control Continue Lipitor PT and OT evaluation (3) Hematuria: Plan: Likely Swan catheter related Resolving after irrigation Urology service consulted Maintain Swan catheter for now, hold aspirin for today Tomorrow April 16, 2023 if hematuria further resolves, remove Swan catheter, trial of voiding and resume aspirin (4) Hypertension: Plan: BP elevated, received labetalol, hydralazine - resumed amlodipine Blood pressure improving Monitor closely (5) CKD (chronic kidney disease), stage III: Plan: Stable (6) Acute metabolic encephalopathy: Plan: Resolved Discharge to [facility] PCP follow-up in 1 week Neurology follow-up in 2 weeks Admission and Anticipated Discharge Date Admission Date: April 04, 2023 Subjective Follow-up for acute CVA, etc. Had episode of hematuria earlier this morning Seen resting in bed side chair, comfortable, not in distress, in good spirits Awake and alert, oriented x 2 Answers simple questions appropriately Occasionally gets confused States he feels fine overall except still having right lower extremity weakness No neurologic deficits no chest pain, dyspnea, palpitations, dizziness No abdominal pain, pain in the catheter insertion site No other new symptoms States he is ready for discharge today to [facility] Review of Systems Review of Systems: all noted and negative except for above Physical Exam Physical Exam: General- oriented x 2, not in distress, speaks in sentences with no effort or accessory muscle use Eyes-mild erythema right eye, no discharge, anicteric Neck- no JVD Lungs- clear breath sounds bilaterally, no rales/wheezes Heart- normal rate, regular rhythm; no murmurs Abdomen- normal bowel sounds, nondistended, soft, nontender Swan catheter in place: Positive maroon/yellow urine Extremities- no pretibial edema, no calf tenderness Neuro- alert, oriented x 2; right lower extremity weakness, mild dysarthria, no new gross focal neurologic deficits Skin- warm & dry Results & Data Results & Data Vital Signs (Past 12 Hours) Vital Signs Temp Pulse Pulse Resp BP Pulse Ox O2 Del Method 04/15/23 08:05 36.6 C 98 H 18 158/95 H 93 Room Air 04/15/23 05:57 94 H 04/15/23 03:15 36.7 C 86 18 152/93 H 92 Room Air 04/14/23 23:13 85 04/14/23 22:45 Room Air all noted and reviewed including below (4) Hypertension Hypertension type: unspecified Qualified Code(s): I10 - Essential (primary) hypertension (5) CKD (chronic kidney disease), stage III Chronic kidney disease stage 3 subtype: unspecified whether 3a or 3b Qualified Code(s): N18.30 - Chronic kidney disease, stage 3 unspecified
--- NOTE | 2023-04-15 10:50 | Discharge Summary ---
Discharge Summary Date of Service April 15, 2023 Notes For Next Care Provider Hold aspirin for today in light of hematuria, if hematuria further resolves tomorrow April 16, 2023, resume aspirin please Continue amlodipine for blood pressure control Continue Lipitor PT and OT evaluation Medication Changes From Visit per below Admission HPI Per Admitting Provider 87-year-old male with PMH HTN, HLD, CKD stage III, CVA, and other problems listed below who presents to the ED from [facility] for evaluation of speech difficulty and altered mental status. History unobtainable from the patient. History obtained from son who is at the bedside and review of recent inpatient records. Patient recently admitted to [facility] 03/29 through 04/03 for CVA. Patient w as discharged to [facility] for rehab. Son states that this morning, therapy had reported that patient was generally weak and required much difficulty getting out of bed. When patient left the hospital yesterday, he was ambulating with a walker. Son reports that when he was visiting around 12:00, the patient's speech became very garbled and patient was not following commands. EMS was called and patient was brought to the ED for further evaluation. Head CT suggest left parietal developing subacute CVA. Patient was given IVF. Admission Exam Per Admitting Provider Constitutional: WD/WN, vitals as above Eyes: PERRL, conjunctivae normal, anicteric sclerae ENMT: Ears: no external ear abnormality Nose: no external nose abnormality Mouth: + dry oral mucous membranes Respiratory: normal respiratory effort, lungs clear to auscultation Cardiovascular: Rate/Rhythm: regular rhythm and + tachycardic Vessels: normal peripheral pulses Extremities: no edema Gastrointestinal (Abdomen): normal bowel sounds, soft, nontender, no hepatosplenomegaly Skin: no rashes, warm and dry Neurologic: Patient moves all extremities however without purpose and does not follow commands, speech is garbled, intermittent left-sided gaze Psychiatric: Orientation: alert; + not oriented x 3 Principal Dx & Hospital Course #1 = Principal Diagnosis (1) 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 Recently admitted to [facility] 03/29 through 04/03 for acute CVA and patient was discharged to [facility] for rehab. Case discussed with neurology Dr. Chris via tigertext on admission Repeat brain MRI obtained - 1. There are numerous foci of acute to subacute ischemia seen bilaterally across vascular territories, with the largest foci seen in the left parietal and occipital lobes. The appearance favors an embolic phenomenon. 2. There is no hemorrhage or mass effect. Neurology consulted Cardiology consult due to concerns of cardioembolic CVA 04/05 Per neurology Patient presents back with worsening of his stroke deficits secondary to extension of his prior infarcts. Reviewing the initial history, patient was found down at home and stroke burden localized to the borderzone/watershed territory. This region is also typical for cardioembolism and therefore we recommended zio patch despite normal echo (TTE). Now, the MRI shows extension of the prior strokes, with much larger burden in the L hemisphere but again localized to the borderzone. While cardioembolism with a second shower of emboli is possible, I personally feel that it is less likely as there are no strokes throughout the posterior circulation. However, unclear why patient would have extended his strokes despite no hypotension at rehab. Appreciate cardiology opinion on the need and risk/benefit of DAILY in this context. Empiric anticoagulation is otherwise not indicated, patient can remain on aspirin. I am otherwise concerned about his overall prognosis given his age and severity of his stroke deficits. 04/05 Per cardiology - -Patient with presentation for change in mental status, confusion, somnolence, unable to articulate. 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 They were in both cerebral hemispheres. Telemetry reviewed and reveals sinus rhythm without evidence of atrial fibrillation. Previous echocardiogram performed 03/30/2023 reviewed and the images were reviewed independently revealing sinus rhythm with subtle hypokinesis of the basal inferior/posterior segments and otherwise normal wall motion, with LVEF in the range of 50-55%. Mild aortic valve sclerosis without stenosis. Aortic regurgitation. Obtaining blood cultures to exclude occult infection subacute bacterial endocard itis could present with embolic phenomenon Patient was reportedly on aspirin at the time of his initial presentation over a week ago, and has been maintained on aspirin therapy in the meantime and now. He received aspirin per rectum most recently due to inability to take oral medication. Cardiology input requested with regards evaluation with transesophageal echocardiogram for further evaluation of possible cause of embolic strokes. At present, it is felt that the risk of sedation in this particular case would outweigh the benefits obtained from obtaining the information, but this will be reassessed this hospitalization develops. Continue telemetry monitoring to evaluate for occult atrial fibrillation. Blood cultx obtained - negat. for 48 hrs 04/06/2023 - Pt not moving R arm or R leg. Looks at me when I talk to him. Difficulty taking meds today. Discussed w/ neurology and pt's family. CT head repeated - 1. No acute intracranial hemorrhage. No significant mass effect. 2. Re-demonstration of the acute infarcts shown on prior CT and MRI. These are most evident within the left parietal occipital lobes. 3. Hypodensity within the posterior bilateral frontal lobes which is more conspicuous than on prior CT. 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 Neurology reviewed images - expected evolution of CVA Palliative medicine also consulted 04/07/2023 - Family meeting with palliative medicine today. Decided for comfort care measures. Orders adjusted. 04/08 Pt appears comfortable. Able to say "yes" and "no" when talking to him, otherwise unchanged from previous. 04/09 Today sleeping , appears comfortable, not responding to voice or touch. 04/10Pt awake and alert today, speaking in sentences (for the first time since this admission) and even drinking and eating a little. Pt's son contacted to let him know - so that they can visit or call the pt today. 04/11 patient is awake and alert, able to speak, take p.o., even moving his right arm somewhat. He does not wish to be comfort care, and would like to try PT OT. PT OT ordered. Family , palliative med. and home health care case manager aware. Will restart previous medications, aspirin statin, amlodipine. PT contacted so that hopefully evaluation could be done over the weekend. 04/12 Patient is more confused today Continue present medication regimen Continue to monitor patient's progress closely Long discussion held with patient's son and daughter at the bedside 04/13 Drowsy today, still mostly confused Continue to observe closely Continue PT and OT evaluation Emergency guardianship paperwork requested by patient's son and [id number], completed in consultation with psychiatrist Dr. Dominique Holder 04/14 More alert and awake today Continue PT and OT evaluation Continue aspirin, Lipitor 04/15 Remains awake and alert, sitting up in bedside chair, having breakfast, still occasionally confused Still with right lower extremity weakness Hold aspirin for today in light of hematuria, if hematuria further resolves tomorrow April 16, 2023, resume aspirin please Continue amlodipine for blood pressure control Continue Lipitor PT and OT evaluation (3) Hematuria: Likely Fuentes catheter related Resolving after irrigation Urology service consulted Maintain Fuentes catheter for now, hold aspirin for today Tomorrow April 16, 2023 if hematuria further resolves, remove Fuentes catheter, trial of voiding and resume aspirin (4) Hypertension: BP elevated, received labetalol, hydralazine - resumed amlodipine Blood pressure improving Monitor closely (5) CKD (chronic kidney disease), stage III: Stable (6) Acute metabolic encephalopathy: Resolved Discharge [facility] PCP follow-up in 1 week Neurology follow-up in 2 weeks Discharge Exam General- oriented x 2, not in distress, speaks in sentences with no effort or accessory muscle use Eyes-mild erythema right eye, no discharge, anicteric Neck- no JVD Lungs- clear breath sounds bilaterally, no rales/wheezes Heart- normal rate, regular rhythm; no murmurs Abdomen- normal bowel sounds, nondistended, soft, nontender Fuentes catheter in place: Positive maroon/yellow urine Extremities- no pretibial edema, no calf tenderness Neuro- alert, oriented x 2; right lower extremity weakness, mild dysarthria, no new gross focal neurologic deficits Skin- warm & dry Updated Medication List Medication Instructions Recorded Confirmed Type aspirin 81 mg tablet,delayed 81 mg PO DAILY 03/29/23 04/04/23 History release cholecalciferol (vitamin D3) 25 25 mcg PO DAILY 03/29/23 04/04/23 History mcg (1,000 unit) capsule multivitamin with minerals 1 tab PO DAILY 03/29/23 04/04/23 History (Multiple Vitamin-Minerals tablet) amlodipine 5 mg tablet (Norvasc) 5 mg PO QPM #30 tabs 03/31/23 04/04/23 Rx atorvastatin 40 mg tablet 40 mg PO HS #30 tabs 04/03/23 04/04/23 Rx acetaminophen 325 mg tablet 650 mg (2 x 325 mg) PO QID PRN 04/15/23 Rx pain/fever 30 days #14 tabs ciprofloxacin HCl 0.3 % eye drops 1 drp ophthalmic (eye) BID 4 days 04/15/23 Rx #10 mL Hospital Stay Data Consultations 04/04/23 16:28 ED Decision to Admit Stat 04/04/23 16:41 Consult Neurology Routine 04/04/23 19:22 Consult Cardiology Routine 04/06/23 14:10 Consult Palliative Care Routine 04/09/23 13:20 Consult Psychiatry Routine 04/15/23 08:46 Consult Urology Routine Diagnostic Imagining Performed Laboratory Results WBC 10.02 K/ul (4.8-10.8) 04/15/23 05:54 RBC 4.95 M/uL (4.70-6.10) 04/15/23 05:54 Hgb 14.7 g/dl (14.0-18.0) 04/15/23 05:54 POC Hgb 16.3 g/dl (14.0-18.0) 04/04/23 14:12 Hct 42.2 % (42.0-52.0) 04/15/23 05:54 POC Hct 48 % (42-52) 04/04/23 14:12 MCV 85.3 fL (80.0-100.0) 04/15/23 05:54 MCH 29.7 pg (25.0-34.0) 04/15/23 05:54 MCHC 34.8 g/dL (32.0-36.0) 04/15/23 05:54 RDW Std Deviation 41.9 fL (36.4-46.3) 04/15/23 05:54 RDW Coeff of Dorothy 13.6 % (11.5-14.5) 04/15/23 05:54 Plt Count 303 K/uL (130-400) 04/15/23 05:54 MPV 8.7 fL (9.4-12.4) L 04/15/23 05:54 Immature Gran % (Auto) 0.7 % 04/15/23 05:54 Neut % (Auto) 66.9 % 04/15/23 05:54 Lymph % (Auto) 17.5 % 04/15/23 05:54 Storey % (Auto) 11.8 % 04/15/23 05:54 Eos % (Auto) 2.3 % 04/15/23 05:54 Baso % (Auto) 0.8 % 04/15/23 05:54 Neut # (Auto) 6.71 K/uL (1.40-6.50) H 04/15/23 05:54 Lymph # (Auto) 1.75 K/uL (1.20-3.40) 04/15/23 05:54 Storey # (Auto) 1.18 K/uL (0.11-0.59) H 04/15/23 05:54 Eos # (Auto) 0.23 K/uL (0.00-0.50) 04/15/23 05:54 Baso # (Auto) 0.08 K/uL (0.00-0.20) 04/15/23 05:54 Immature Gran # (Auto) 0.07 K/uL (0.01-0.20) 04/15/23 05:54 ESR 26 mm/hr (0-20) H 04/05/23 06:38 PT 10.9 Seconds (9.0-12.0) 04/04/23 14:11 INR 1.0 (0.9-1.1) 04/04/23 14:11 APTT 29 Seconds (21-31) 04/04/23 14:11 PTT Ratio 1.0 04/04/23 14:11 POC Sodium 137 mmol/L (135-144) 04/04/23 14:12 Sodium 138 mmol/L (136-145) 04/15/23 05:47 POC Potassium 5.0 mmol/L (3.3-5.0) 04/04/23 14:12 Potassium 3.4 mmol/L (3.5-5.1) L 04/15/23 05:47 POC Chloride 103 mmol/L (101-112) 04/04/23 14:12 Chloride 104 mmol/L (98-107) 04/15/23 05:47 Carbon Dioxide 25 mmol/L (21-32) 04/15/23 05:47 POC Total CO2 23 mmol/L (24-31) L 04/04/23 14:12 Anion Gap 9 (3-11) 04/15/23 05:47 POC Anion Gap 17.0 mmol/L (16-25) 04/04/23 14:12 POC BUN 22 mg/dl (7-18) H 04/04/23 14:12 BUN 25 mg/dl (6-23) H 04/15/23 05:47 Creatinine 0.97 mg/dl (0.6-1.4) 04/15/23 05:47 POC Creatinine 1.1 mg/dl (0.6-1.3) 04/04/23 14:12 Est Cr Clr Drug Dosing 52.1 ml/min 04/15/23 05:47 Est GFR ( Amer) 81.6 ml/min 04/15/23 05:47 Est GFR (Non-Af Amer) 70.4 ml/min 04/15/23 05:47 BUN/Creatinine Ratio 25.8 (10-20) H 04/15/23 05:47 Glucose 104 mg/dl (70-99(Fasting)) H 04/15/23 05:47 POC Glucose 155 mg/dl (70-99) H 04/05/23 12:33 POC Glucose (other) 106 mg/dl (70-99) H 04/04/23 14:12 Estimat Average Glucose 94 mg/dl 04/05/23 06:38 Hemoglobin A1c 4.9 % (4.5-5.6) 04/05/23 06:38 Calcium 8.7 mg/dl (8.6-10.3) 04/15/23 05:47 POC Ioniz Calcium Heidi 1.03 mmol/l (1.12-1.32) L 04/04/23 14:12 Phosphorus 2.7 mg/dl (2.5-4.9) 04/12/23 04:20 Magnesium 2.1 mg/dl (1.7-2.4) 04/12/23 04:20 Total Bilirubin 1.3 mg/dl (0.2-1.0) H 04/04/23 14:11 AST 33 U/L (13-39) 04/04/23 14:11 ALT 32 U/L (7-52) 04/04/23 14:11 Alkaline Phosphatase 88 U/L (34-104) 04/04/23 14:11 Troponin I High Sens 6.6 pg/ml (0-20) 04/04/23 14:11 C-Reactive Protein 2.06 mg/dl (0-0.5) H 04/05/23 06:38 Total Protein 7.4 gm/dl (6.0-8.3) 04/04/23 14:11 Albumin 4.2 gm/dl (3.4-5.0) 04/04/23 14:11 Globulin 3.2 gm/dl (2.5-4.0) 04/04/23 14:11 Albumin/Globulin Ratio 1.3 (0.9-2) 04/04/23 14:11 Triglycerides 66 mg/dl (0-150) 04/05/23 06:38 Cholesterol 152 mg/dl (0-200) 04/05/23 06:38 LDL Cholesterol, Calc 93 mg/dl 04/05/23 06:38 VLDL Cholesterol, Calc 13 mg/dl (0-30) 04/05/23 06:38 HDL Cholesterol 46 mg/dl 04/05/23 06:38 Cholesterol/HDL Ratio 3.3 (0-5) 04/05/23 06:38 Urine Color Yellow 04/05/23 Unknown Urine Appearance Cloudy (Clear) A 04/05/23 Unknown Urine pH 5.0 (4.5-7.5) 04/05/23 Unknown Ur Specific Petroleum 1.045 (1.000-1.030) H 04/05/23 Unknown Urine Protein 1+ (Negative) H 04/05/23 Unknown Urine Glucose (UA) Negative (Negative) 04/05/23 Unknown Urine Ketones 3+ (Negative) H 04/05/23 Unknown Urine Blood Negative (Negative) 04/05/23 Unknown Urine Nitrite Negative (Negative) 04/05/23 Unknown Urine Bilirubin Negative (Negative) 04/05/23 Unknown Urine Urobilinogen Negative (Negative) 04/05/23 Unknown Ur Leukocyte Esterase Negative (Negative) 04/05/23 Unknown Urine WBC (Auto) 1-5 /hpf (0-5) 04/05/23 Unknown Urine RBC (Auto) 0-4 /hpf (0-4) 04/05/23 Unknown U Hyaline Cast (Auto) 1-5 /lpf (0-5) 04/05/23 Unknown U Epithel Cells (Auto) >30 /lpf (0-5) H 04/05/23 Unknown Urine Bacteria (Auto) Negative (Negative) 04/05/23 Unknown SARS-CoV-2, RNA, NAAT NEGATIVE (NEGATIVE) 04/04/23 14:41 Impressions Chest X-Ray 04/04/23 13:54 XR chest 1V portable HISTORY: 87 years-old Male neuro deficit, acute stroke suspected acute strokelike symptoms COMPARISON: 03/29/2023 TECHNIQUE: AP view of the chest FINDINGS: Cardiac silhouette is enlarged. Moderate right hemidiaphragmatic elevation. No pneumothorax, pleural effusion or overt pulmonary edema. Probable mild bibasilar atelectasis. Degenerative changes of the shoulders and spine. Limited exam secondary to positioning. IMPRESSION: Cardiomegaly without acute process. ACT 112: Negative or not required by law. The above report was generated using voice recognition software. It may contain grammatical, syntax or spelling errors. Electronically signed by: Miguel Mansfield M.D. 04/04/2023 4:25 PM Head CTA 04/04/23 13:54 HEAD CTA HISTORY: Confusion. neuro deficit, acute stroke suspected TECHNIQUE: Multiaxial CT images of the head were performed both before and after the intravenous administration of contrast to evaluate the major cerebral vessels. 3D/MIP images were also obtained. Sagittal and coronal reformats were reviewed. A dose lowering technique was utilized adhering to the principles of ALARA. COMPARISON: Head CTA 04/01/2023. FINDINGS: The major dural venous sinuses are not well opacified but likely patent. 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 Focal high-grade stenosis within the supraclinoid segment of the right ICA on image 121, unchanged. There is poststenotic fusiform aneurysmal dilatation of the right supraclinoid ICA measuring 6 mm in diameter. There is an additional 3 mm saccular aneurysm extending posteriorly from the right supraclinoid ICA. The distal bilateral vertebral arteries and proximal to mid basilar artery are widely patent. There is mild narrowing of the distal basilar artery. High-grade stenosis within the proximal bilateral organic preparation analyst. Additional areas of mild to moderate multifocal stenoses within the mid to distal bilateral organic preparation analyst. Multifocal moderate to severe stenosis within the right A1 segment and multifocal mild stenosis within the left A1 segment, unchanged. Multifocal areas of high-grade stenosis with possible short segments of occlusion involving the bilateral mid to distal ACAs, unchanged. Multifocal areas of mild to moderate stenosis within the bilateral MCAs. No evidence for occlusion of the bilateral MCAs. IMPRESSION: 1. No evidence for an acute occlusion within the [place]. 2. Multifocal areas of stenosis seen throughout the major cerebral arteries as described above which is similar to the prior study. This raises the possibility of underlying vasculitis. 3. 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 This remains unchanged. 4. Additional findings as described above. ACT 112: Negative or not required by law. Electronically signed by: Seb Boateng M.D. 04/04/2023 3:00 PM Neck CTA 04/04/23 13:54 CT angio neck with con CLINICAL HISTORY: 87 years-old Male with neuro deficit, acute stroke suspected. Acute strokelike symptoms COMPARISON STUDY: April 01, 2023 TECHNIQUE: Following the IV administration of 114 mL of Optiray, CT angiogram of the neck was performed from the aortic arch to the skull base. Images are reviewed in the axial, sagittal, and coronal planes. 3-D MIPS images are created and assessed. IV contrast was administered without complication. All measurements were calculated based on NASCET criteria. A dose lowering technique was utilized adhering to the principles of ALARA. FINDINGS: Three-vessel morphology of the thoracic regard. Mild atherosclerotic plaque of the right carotid bulb results in less than 50% stenosis. The common carotid arteries are widely patent. Atherosclerotic plaque of the left carotid bulb and proximal left ICA results in approximately 50% stenosis. Slight plaque at the origin of the left vertebral artery causes mild stenosis. The bilateral vertebral arteries are otherwise patent. The basilar artery is patent. No pneumothorax. Prominence of the mediastinal fat. Unremarkable soft tissues. Chronic mucoperiosteal left maxillary sinus thickening. Degenerative changes of the cervical spine. IMPRESSION: 1. Atherosclerosis results in approximately 50% stenosis of the proximal cervical segment left ICA. 2. Otherwise unremarkable CTA of the neck. ACT 112: Negative or not required by law. The above report was generated using voice recognition software. It may contain grammatical, syntax or spelling errors. Electronically signed by: Miguel Mansfield M.D. 04/04/2023 2:46 PM Brain MRI 04/04/23 16:41 MRI OF THE BRAIN WITHOUT IV CONTRAST CLINICAL HISTORY: Neurological deficit. Stroke. COMPARISON STUDY: CT of the brain dated 04/04/2023. TECHNIQUE: MRI of the brain was performed utilizing various T1 and T2-weighted sequences in the axial, sagittal, and coronal planes. IV contrast was not administered for this examination. FINDINGS: Brain parenchyma: There are large foci of restricted diffusion within the high left posterior parietal lobe and in the left occipital lobe. Numerous additional small foci of restricted diffusion are seen throughout the left hemisphere. There are also foci of restricted diffusion in the right frontal lobe and in the high right frontoparietal region. This is consistent with multifocal acute to subacute infarcts. There is no hemorrhage or mass effect. There is age-related involutional change noted advanced confluent subcortical and periventricular microangiopathic disease. No extra-axial fluid collection is seen. The cerebellar tonsils are normal in configuration. Ventricles, sulci, and cisterns: Prominent secondary to motion change. Pituitary and sella: Unremarkable. Intracranial vasculature: Normal flow voids are maintained at the skull base. Orbits: The bony orbits are grossly intact. Orbital contents are normal in appearance. Sinuses and mastoids: There is mild mucosal thickening in the left maxillary sinus. The remaining paranasal sinuses and the mastoid air cells are clear. Calvarium: Unremarkable. Cervical cord: Partially visualized cervical spinal cord is normal in morphology and signal intensity. IMPRESSION: 1. There are numerous foci of acute to subacute ischemia seen bilaterally across vascular territories, with the largest foci seen in the left parietal and occipital lobes. The appearance favors an embolic phenomenon. 2. There is no hemorrhage or mass effect. ACT 112: Negative or not required by law. Electronically signed by: James Crockett M.D. 04/04/2023 8:10 PM Abdomen/Pelvis CT 04/04/23 23:25 Exam(s): CT ABDOMEN + PELVIS Without Contrast EXAM: CT Abdomen and Pelvis Without Intravenous Contrast CLINICAL HISTORY: Abdominal distention. TECHNIQUE: Axial computed tomography images of the abdomen and pelvis without intravenous contrast. CTDI is 26.09 mGy and DLP is 1358.77 mGy-cm. Automated exposure control was utilized for the study. A dose lowering technique was utilized adhering to the principles of ALARA. COMPARISON: No relevant prior studies available. FINDINGS: Lung bases: Unremarkable. No mass. No consolidation. ABDOMEN: Liver: Unremarkable. Gallbladder and bile ducts: Cholelithiasis. No ductal dilation. Pancreas: Unremarkable. No ductal dilation. Spleen: Unremarkable. No splenomegaly. Adrenals: Unremarkable. No mass. Kidneys and ureters: Unremarkable. No obstructing stones. No hydronephrosis. Stomach and bowel: Unremarkable. No obstruction. No mucosal thickening. PELVIS: Appendix: No findings to suggest acute appendicitis. Bladder: The urinary bladder is decompressed secondary to a Fuentes catheter. No stones. Reproductive: Marked prostate gland enlargement. ABDOMEN and PELVIS: Intraperitoneal space: Unremarkable. No free air. No significant fluid collection. Bones/joints: There are degenerative changes of the spine. No acute fracture. No dislocation. Soft tissues: Small bilateral fat-containing inguinal hernias. Vasculature: Mild atherosclerosis. No abdominal aortic aneurysm. Lymph nodes: Unremarkable. No enlarged lymph nodes. IMPRESSION: 1. Marked prostate gland enlargement. 2. Cholelithiasis. Electronically signed by: Adriana Khan MD 04/05/23 02:[address] 04/06/23 17:04 CT OF THE HEAD WITHOUT CONTRAST CLINICAL HISTORY: CVA, now not moving R leg COMPARISON STUDY: Head CT, CTA of the head and MRI of the brain April 04, 2023. CT DOSE: 625.8 mGy.cm TECHNIQUE: Helical axial images of the head were obtained without IV contrast. Automated exposure control was utilized for the study. A dose lowering technique was utilized adhering to the principles of ALARA. FINDINGS: No acute intracranial hemorrhage, midline shift or mass effect is present. Ventricular system is stable. Basal cisterns are patent. There are no extra-axial collections. Exam is mildly compromised by motion artifact. Described acute infarcts on prior CT and MRI are noted with expected evolution. These are most evident within the left parietal and occipital lobes. Hypodensity within the posterior bilateral frontal lobes is more conspicuous than on prior CT and MRI. Although this could be artifactual, the findings raise the possibility of increase in extent of the acute infarcts shown on previous MRI. IMPRESSION: 1. No acute intracranial hemorrhage. No significant mass effect. 2. Redemonstration of the acute infarcts shown on prior CT and MRI. These are most evident within the left parietal occipital lobes. 3. Hypodensity within the posterior bilateral frontal lobes which is more conspicuous than on prior CT. 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 ACT 112: Negative or not required by law. Electronically signed by: Farhat Pavon M.D. 04/06/2023 7:16 PM Pending Results Patient Have Any Pending Studies at Discharge: No Discharge Instructions Given to Patient (Per Discharging Provider) MAINTAIN FUENTES CATHETER FOR TODAY. HOLD ASPIRIN FOR TODAY. IF URINE CONTINUES TO CLEAR UP TOMORROW, MAY REMOVE FUENTES CATHETER, PROCEED WITH TRIAL OF VOIDING AND RESUME ASPIRIN 81 MG P[address]O. DAILY TOMORROW. MONITOR BLOOD PRESSURE CLOSELY. FALL PRECAUTIONS. CONTINUE PT AND OT. Total Time Total Time Spent Total Time Spent (In Minutes): >30 minutes
[2023-04-15] MEDS: ACETAMINOPHEN 325 MG TAB PO PRN (11:03)
--- NOTE | 2023-04-15 12:14 | CT Scan Report ---
ABDOMEN AND PELVIS CT WITHOUT CONTRAST CT DOSE: 1299.39 mGy.cm HISTORY: hematuria, r/o kidney stone, ureteral stone TECHNIQUE: Multiaxial CT images of the abdomen and pelvis were performed without contrast. A dose lo wering technique was utilized adhering to the principles of ALARA. COMPARISON STUDY: Abdomen and pelvis CT 04/05/2023. FINDINGS: Punctate calcified granuloma within the right lower lobe. The left lung base is clear. No p neumoperitoneum. No pneumatosis. Trace right hip effusion, unchanged. Cholelithiasis. No gallbladder wall thickening. The unenhanced liver, pancreas, and adrenal glands unremarkable. Multiple punctate c alcified granulomas seen within the spleen. Partially calcified nodule within the upper abdomen on im age 89. 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 Normal caliber abdominal aorta with mild calcified plaque. No ureteral ston es. No hydronephrosis. Probable small stones within the left kidney. This is suboptimally assessed du e to the motion artifact.. No definite right renal calculi. A few punctate stones within the bladder lumen. There is gas within the bladder lumen. The bladder is mildly distended. There is mild bladder wall thickening with adjacent fat stranding. The prostate gland is markedly enlarged. The Swan ester ter and balloon is located within the prostatic urethra best seen on image 330. Therefore, this shoul d be removed/reposition. No pelvic lymphadenopathy or pelvic free fluid. Suboptimal evaluation for sonya wel pathology due to the lack of intravenous and oral contrast. However, there is no definite bowel w all thickening or obstruction. Colonic diverticulosis. No evidence for acute diverticulitis. IMPRESSION: 1. Probable small stones within the left kidney. This is suboptimally assessed due to the motion tamra fact. 2. No right renal calculi. 3. No ureteral calculi. No hydronephrosis. 4. Punctate bladder calculi noted. 5. The Swan balloon/catheter is located within the prostatic urethra. This should be removed/reposit ion. This was texted to John Quiroz following dictation. 6. The bladder is mildly distended. This could be due to the malpositioned Swan catheter. 7. Mild bladder wall thickening with adjacent fat stranding. This may represent a cystitis. 8. Cholelithiasis. 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 10. Additional findings as described above. ACT 112: Negative or not required by law. Electronically signed by: Seb Boateng M.D. 04/15/2023 12:13 PM
== END 2023-04-15 15:08 | DRG 64 ==
LOC: ED 13:39 → SUATTDRO 16:44 → EDINP 16:44 → 2S 19:06 → 3W 04-07 21:47 → 2W 04-11 21:32